=== PATIENT | female | born 1930 | race Caucasian/White ===

== ENCOUNTER 2016-11-12 07:09 | Inpatient (IN) | payer MEDICARE, OTHER, MEDICAID ==
[~2016-11-12] VITALS: Ht 157.5 cm; Wt 99.5 kg
[~2016-11-12 07:09] MED LIST: AC325T PO; ALPR.5T PO; ALPR1T PO; AMIT10TA6 PO; AMIT25TA9 PO; AMLO10TA82 PO; CALC-9 PO; CETI10TA20 PO; CHLR10C PO; CHOL100011 PO; CLOP75TA PO; DIPH1TAB25 PO; DIPH1TAB45 PO; DNPZ10T PO; DONE10TA48 PO; DULO60CA6 PO; FURO40TA4 PO; GABA600T2 PO; GUAI10SY4 PO; GUAI400T11 PO; HYDR-623 PO; KCL20TCR PO; LACT1CAP39 PO; LOVA20TA2 PO; LOVA40TA2 PO; LRZ1T PO; MAG-5 PO; MAG355OR17 PO; MAGN-47 PO; MECL25TA56 PO; MELA1TAB11 PO; METO-354 PO; METO5TAB2 PO; METO5TAB79 PO; MEVACOR; NITR-65 PO; OMEP-10 PO; ONDAN4ODT PO; OXYC-12 PO; PARO40TA47 PO; PNT40TEC PO; PREG200C PO; RLX60T PO; RNT150T PO; SCR1T1 PO; SIME80TA6 PO; SOLI10TA4 PO; TRM50T PO; ZLP10T PO
[2016-11-12 08:09] LABS: BASOPHILS % (AUTO) 0 % (0-10); EOSINOPHILS % (AUTO) 0 % (0-10); LYMPHOCYTES # (AUTO) 0.7 X 10^3 (1.0-4.0); LYMPHOCYTES % (AUTO) 7 % (12-44); MEAN CORPUSCULAR HEMOGLOBIN 28 PG (25-34); MEAN CORPUSCULAR HGB CONC 31 G/DL (32-36); MEAN CORPUSCULAR VOLUME 90 FL (80-99); MEAN PLATELET VOLUME 10.7 FL (7.4-10.4); MONOCYTES # (AUTO) 0.6 X 10^3 (0.0-1.0); MONOCYTES % (AUTO) 6 % (0-12); NEUTROPHILS # (AUTO) 8.5 X 10^3 (1.8-7.8); NEUTROPHILS % (AUTO) 87 % (42-75); PLATELET COUNT 153 10^3/uL (130-400); RED BLOOD COUNT 5.52 10^6/uL (4.35-5.85); RED CELL DISTRIBUTION WIDTH 15.1 % (10.0-14.5); WHITE BLOOD COUNT 9.9 10^3/uL (4.3-11.0)
[2016-11-12 08:30] LABS: ALANINE AMINOTRANSFERASE 16 U/L (0-55); ALBUMIN 3.4 G/DL (3.2-4.5); ANION GAP 14 MMOL/L (5-14); ASPARTATE AMINO TRANSFERASE 42 U/L (5-34); BILIRUBIN,TOTAL 0.8 MG/DL (0.1-1.0); BLOOD UREA NITROGEN 14 MG/DL (7-18); BUN/CREATININE RATIO 10; CALCIUM 8.9 MG/DL (8.5-10.1); CARBON DIOXIDE 28 MMOL/L (21-32); CHLORIDE 102 MMOL/L (98-107); CREATININE SERUM 1.44 MG/DL (0.60-1.30); GFR ESTIMATED 34; GLUCOSE 134 MG/DL (70-105); POTASSIUM 4.1 MMOL/L (3.6-5.0); SODIUM 144 MMOL/L (135-145); TOTAL PROTEIN 6.5 G/DL (6.4-8.2)
--- NOTE | 2016-11-12 08:38 | ED General ---
General Chief Complaint: Respiratory Problems Stated Complaint: AMS Nursing Triage Note: Pt was found in bed this morning with altered mental status and SA02 in the 70s according to assisted report. Pt mumbles but is not able to converse in normal conversation. No family members here yet. Pt on NR mask at 10 l and now SA02 100%. Pt is DNR. Nursing Sepsis Screen: No Definite Risk Source of Information: Patient, EMS Notes Reviewed Exam Limitations: No Limitations History of Present Illness Time Seen by Provider: 08:34 Initial Comments The patient is a very nearly 86-year-old white female who is a resident of [facility]. She exhibited a change in condition this morning with confusion and hypoxia. She is a documented no code patient. The facility was apparently unable to get in touch of Dr. Arguello her community physician and so they sent her here. She rouses to voice. She only mumbles. I was able to understand that she knew that she was at the hospital and that she was short of breath. She allowed she did not believe she had a fever and was not coughing up phlegm. Allergies and Home Medications Allergies Coded Allergies: latex (Unverified Allergy, Mild, 08/12/09) Cephalexin (Unverified Allergy, Unknown, 01/29/07) Penicillins (Unverified Allergy, Unknown, 01/29/07) Soap (Unverified Allergy, Unknown, 01/29/07) codeine (Unverified Allergy, Unknown, 01/29/07) povidone-iodine (Unverified Allergy, Unknown, 01/29/07) Home Medications Acetaminophen 325 Mg Tab, 650 MG PO Q6H PRN for PAIN, (Reported) TAKE 2 (325MG) TABLETS NEEDED FOR PAIN Amitriptyline Hcl 25 Mg Tablet, 25 MG PO HS, (Reported) Cetirizine HCl 10 Mg Tablet, 10 MG PO DAILY, (Reported) Cholecalciferol 1,000 Unit Capsule, 2,000 UNIT PO DAILY, (Reported) Clopidogrel Bisulfate 75 Mg Tablet, 75 MG PO DAILY, (Reported) Donepezil Hcl 10 Mg Tab.rapdis, 10 MG PO HS, (Reported) Guaifenesin 400 Mg Tablet, 400 MG PO Q4H PRN for INCREASED SPUTUM, (Reported) NEEDED FOR INCREASED SPUTUM Guaifenesin/Dextromethorphan 10 Ml Liqd, 10 ML PO Q6H PRN for COUGH, (Reported) NEEDED FOR COUGH Hydrocodone Bit/Acetaminophen 1 Tab Tablet, 1 TAB PO QID PRN for PAIN, (Reported ) 10-325MG NEEDED FOR PAIN Lactobacillus Rhamnosus 1 Cap Capsule, 1 CAP PO DAILY, (Reported) Lorazepam 1 Mg Tab, 1 MG PO BID, (Reported) Lovastatin 20 Mg Tablet, 20 MG PO HS, (Reported) Mag Hydrox/Al Hydrox/Simeth 360 Ml Oral.susp, 30 ML PO Q8H PRN for INDIGESTION, (Reported) NEEDED FOR INDIGESTION Magnesium Hydroxide 400 Mg/5 Ml Oral.susp, 30 ML PO DAILY PRN for CONSTIPATION, (Reported) NEEDED FOR CONSTIPATION Metoclopramide Hcl 5 Mg Tablet, 10 MG PO ACHS, (Reported) TAKE 2 (5MG) TABLETS Pregabalin 200 Mg Capsule, 200 MG PO TID, (Reported) Pyridoxine/Melatonin 1 Tab Tablet, 6 MG PO HS, (Reported) TAKES 2 (3GM) TABLETS Simethicone 80 Mg Tab.chew, 80 MG PO BID, (Reported) Constitutional: see HPI EENTM: no symptoms reported Respiratory: short of breath Past Zjdoxnt-Ucozac-Dsnngj Hx Patient Social History Alcohol Use: Denies Use Recreational Drug Use: No Smoking Status: Unknown if Ever Smoked Recent Foreign Travel: No Contact w/Someone Who Travel: No Recent Infectious Disease Expo: No Recent Hopitalizations: Yes Immunizations Up To Date Date of Pneumonia Vaccine: Apr 17, 2009 Respiratory Hx Respiratory Disorders: No Cardiovascular Hx Cardiac Disorders: No Neurological Hx Neurological Disorders: No Reproductive System Hx Reproductive Disorders: No Sexually Transmitted Disease: No Genitourinary Hx Genitourinary Disorders: Yes (INCONTINENCE) Gastrointestinal Hx Gastrointestinal Disorders: Yes (DIVERTICULITIS, IBS, ) Musculoskeletal Hx Musculoskeletal Disorders: Yes Endocrine Hx Endocrine Disorders: No HEENT HX ENT Disorders: Yes (difficulty swallowing pills) Psychosocial Hx Psychiatric Problems: Yes Blood Transfusions Hx Blood Disorders: No Physical Exam Vital Signs Vital Sign - Last 12Hours 11/12/16 07:09 Temp 97.3 Pulse 81 Resp 20 B/P (MAP) 111/60 Pulse Ox 100 O2 Delivery Non Rebreather Capillary Refill : Less Than 3 Seconds General Appearance: Other (eelderly appearing and somnolent) Eyes: Bilateral Eye Normal Inspection HEENT: Normal ENT Inspection Neck: Normal Inspection Respiratory: Other (breath sounds were shallow and distant) Cardiovascular: Regular Rate, Rhythm, No Edema, No Gallop, No JVD, No Murmur, Normal Peripheral Pulses Gastrointestinal: Other Extremity: Other (right AK amputation) Skin: Normal Color, Warm/Dry Lymphatic: No Adenopathy Progress/Results/Core Measures Results/Orders Lab Results Laboratory Tests Test 11/12/16 08:00 Range/Units White Blood Count 9.9 4.3-11.0 10^3/uL Red Blood Count 5.52 4.35-5.85 10^6/uL Hemoglobin 15.5 11.5-16.0 G/DL Hematocrit 50 35-52 % Mean Corpuscular Volume 90 80-99 FL Mean Corpuscular Hemoglobin 28 25-34 PG Mean Corpuscular Hemoglobin Concent 31 L 32-36 G/DL Red Cell Distribution Width 15.1 H 10.0-14.5 % Platelet Count 153 130-400 10^3/uL Mean Platelet Volume 10.7 H 7.4-10.4 FL Neutrophils (%) (Auto) 87 H 42-75 % Lymphocytes (%) (Auto) 7 L 12-44 % Monocytes (%) (Auto) 6 0-12 % Eosinophils (%) (Auto) 0 0-10 % Basophils (%) (Auto) 0 0-10 % Neutrophils # (Auto) 8.5 H 1.8-7.8 X 10^3 Lymphocytes # (Auto) 0.7 L 1.0-4.0 X 10^3 Monocytes # (Auto) 0.6 0.0-1.0 X 10^3 Eosinophils # (Auto) 0.0 0.0-0.3 10^3/uL Basophils # (Auto) 0.0 0.0-0.1 10^3/uL Neutrophils % (Manual) 88 % Lymphocytes % (Manual) 8 % Monocytes % (Manual) 4 % Blood Morphology Comment NORMAL Sodium Level 144 135-145 MMOL/L Potassium Level 4.1 3.6-5.0 MMOL/L Chloride Level 102 98-107 MMOL/L Carbon Dioxide Level 28 21-32 MMOL/L Anion Gap 14 5-14 MMOL/L Blood Urea Nitrogen 14 7-18 MG/DL Creatinine 1.44 H 0.60-1.30 MG/DL Estimat Glomerular Filtration Rate 34 BUN/Creatinine Ratio 10 Glucose Level 134 H 70-105 MG/DL Calcium Level 8.9 8.5-10.1 MG/DL Total Bilirubin 0.8 0.1-1.0 MG/DL Aspartate Amino Transf (AST/SGOT) 42 H 5-34 U/L Alanine Aminotransferase (ALT/SGPT) 16 0-55 U/L Alkaline Phosphatase 100 40-136 U/L Troponin I 2.16 *H <0.30 NG/ML Total Protein 6.5 6.4-8.2 G/DL Albumin 3.4 3.2-4.5 G/DL Valproic Acid (Depakene) Level < 2.0 L 50.0-100.0 UG/ML My Orders Orders - NIXON SCOTT MD Cbc With Automated Diff (11/12/16 07:29) Comprehensive Metabolic Panel (11/12/16 07:29) Troponin I (11/12/16 07:29) Valproic Acid (11/12/16 07:29) Chest 1 View, Ap/Pa Only (11/12/16 07:29) Ekg Tracing (11/12/16 07:29) Manual Differential (11/12/16 08:00) Vital Signs/I&O Vital Sign - Last 12Hours 11/12/16 07:09 Temp 97.3 Pulse 81 Resp 20 B/P (MAP) 111/60 Pulse Ox 100 O2 Delivery Non Rebreather Blood Pressure Mean: 77 Departure Impression Impression: Primary Impression: hypoxia Additional Impression: Decreased level of consciousness Disposition: ADMITTED INPATIENT Condition: Unchanged Decision to Admit Reason: Admit from ER (General) Decision to Admit/Date: November 12, 2016 Time/Decision to Admit Time: 10:26 Departure-Patient Inst. Referrals: PETRA ARGUELLO DO (PCP) Primary Care Physician NIXON SCOTT MD November 12, 2016 08:38
[2016-11-12 08:40] LABS: LYMPHOCYTES % (MANUAL) 8 %; NEUTROPHILS % (MANUAL) 88 %; VALPROIC ACID < 2.0 UG/ML (50.0-100.0)
[2016-11-12 09:15] LABS: TROPONIN I 2.16 NG/ML (<0.30)
--- NOTE | 2016-11-12 09:40 | Diagnostic Imaging Report ---
INDICATION: Shortness of air. COMPARISON: 08/29/2013. FINDINGS: Low lung volumes with asymmetric elevation of the right hemidiaphragm unchanged. There are ill-defined opacities in left mid and lower lung zones. Posterior lower lobes are poorly evaluated on portable radiography. No pleural effusion or pneumothorax. Stable borderline cardiomegaly. Atherosclerotic aorta. IMPRESSION: 1. Ill-defined left perihilar and basilar opacities could relate to pneumonia in the appropriate clinical setting; however, if this does not fit patient's presentation, then this may represent atelectasis due to low lung volumes. Dictated by: Dictated on workstation # [id number]
[2016-11-12 11:50] VITALS: BP 116/67
--- NOTE | 2016-11-12 12:56 | History & Physical-Hospitalist ---
HPI History of Present Illness: HPI/Chief Complaint 85yoCF who presents to the ED from her NH with CC of AMS and abnormal breathing. Patient unable to provide any history. Family at bedside was unaware of any recent events. I called [facility] and RN who cared for her this morning states she normally is alert and oriented x3 and fairly active despite AKA. She states pt was altered this morning with decreased mentation and shallow breathing. She denies any recent complaints from patient, any abnormal vitals on recent checks, or any new medicines or changes to medicine. She was unable to provide any other pertinent recent history. Source: family, RN/MD, [facility] records Exam Limitations: clinical condition Date Seen 11/12/16 Attending Physician Gita Reynaga DO PCP Brennan Arguello DO Referring Physician Date of Admission November 12, 2016 at 10:30 Home Medications & Allergies Home Medications Reviewed patient Home Medication Reconciliation Form Allergies Allergies Coded Allergies latex (Verified Allergy, Mild, 11/12/16) Penicillins (Verified Allergy, Unknown, 11/12/16) cephalexin (Verified Allergy, Unknown, 11/12/16) codeine (Verified Allergy, Unknown, 11/12/16) povidone-iodine (Verified Allergy, Unknown, 11/12/16) soap (Verified Allergy, Unknown, 11/12/16) Past Xlppnaa-Srugko-Zpuxub Hx Patient Social History Employed/Student: retired Alcohol Use: Denies Use Recreational Drug Use: No Smoking Status: Former Smoker Recent Foreign Travel: No Contact w/other who traveled: No Recent Hopitalizations: Yes Recent Infectious Disease Expo: No Immunizations Up To Date Date of Pneumonia Vaccine: Apr 17, 2009 Surgeries HX Surgeries: Yes Surgeries: Amputation (right aka), Hysterectomy Respiratory Hx Respiratory Disorders: No Cardiovascular Hx Cardiovascular Disorders: No Neurological Hx Neurological Disorders: Yes Neurological Disorders: Neuropathy Reproductive System Hx Reproductive Disorders: No Sexually Transmitted Disease: No Genitourinary Hx Genitourinary Disorders: Yes (INCONTINENCE) Gastrointestinal Hx Gastrointestinal Disorders: Yes (DIVERTICULITIS, IBS, ) Musculoskeletal Hx Musculoskeletal Disorders: Yes Musculoskeletal Disorders: Amputee Endocrine Hx Endocrine Disorders: No HEENT HX ENT Disorders: Yes (difficulty swallowing pills) Psychosocial Hx Psychiatric Problems: Yes Integumentary HX Skin/Integumentary Disorder: Yes (history of melanoma) Blood Transfusions Hx Blood Disorders: No Family Medical History Significant Family History: No Pertinent Family Hx Review of Systems ROS-Unable to Obtain: altered mentation Constitutional: see HPI Physical Exam Physical Exam Vital Signs Vital Sign - Last 12Hours 11/12/16 11/12/16 07:09 11:50 Temp 97.3 Pulse 81 Resp 20 B/P (MAP) 111/60 Pulse Ox 100 O2 Delivery Non Rebreather O2 Flow Rate 4.00 Capillary Refill : Less Than 3 Seconds General Appearance: No Apparent Distress, WD/WN HEENT: PERRL/EOMI Neck: Non Tender, Supple Respiratory: Chest Non Tender, Lungs Clear, Normal Breath Sounds Cardiovascular: Regular Rate, Rhythm, No Edema, No JVD Gastrointestinal: Soft, No Distended, Tenderness (mild diffuse) Extremity: No Pedal Edema, Other (s/p AKA) Neurologic/Psychiatric: Alert, No Motor/Sensory Deficits, Disoriented x3 Skin: Normal Color, Warm/Dry Results Results/Procedures Lab Laboratory Tests 11/12/16 08:00 Assessment/Plan Admission Diagnosis Hypoxia Assessment and Plan Hypoxia, new - possible pneumonia on CXR - Will start Levaquin to cover for possible pna - Continue home probiotics - Sputum cultures - MAT protocol - Titrate O2 to keeps sats >90% Elevated troponin - EKG shows no STEMI, monitor on Tele - ASA x1 - Will trend, likely due to hypoxia - Consult cardiology Altered mental Status,improving - Likely due to hypoxia, improved significantly from ER report by the time I was at bedside - Will check UA - Glucose normal - On chronic narcotics, will monitor closely given age Phantom limb pain - Continue Lyrica, Amitriptyline, MS contin - Hold Morphine for now Dispo: Admit to tele for further workup of hypoxia and AMS. MD AARON Nelson KATELYN M MD November 12, 2016 12:56
[2016-11-12] MEDS ORDERED: ENOXAPARIN 30 MG/0.3 ML (LOVENOX) SYR SC SCH (13:15)
[2016-11-12] MEDS ORDERED: ASPIRIN 325 MG (5 GR) TABLET PO NR (13:15)
[2016-11-12] MEDS ORDERED: LEVOFLOXACIN 750 MG TAB (LEVAQUIN) PO NR (13:30)
[2016-11-12] MEDS ORDERED: LOPE-134 PO (13:31)
[2016-11-12] MEDS ORDERED: DEXL60CA PO (13:31)
[2016-11-12] MEDS ORDERED: MORP30TA60 PO (13:31)
[2016-11-12] MEDS ORDERED: SUCR1ORA5 PO (13:31)
[2016-11-12] MEDS ORDERED: KETO5DRO OU (13:31)
[2016-11-12] MEDS ORDERED: VIT1TABL52 PO (13:31)
[2016-11-12] MEDS ORDERED: ONDN4T PO (13:31)
[2016-11-12] MEDS ORDERED: MELA3TAB PO (13:31)
[2016-11-12] MEDS ORDERED: MORP15TA PO (13:31)
[2016-11-12] MEDS ORDERED: DICL100G18 TD (13:31)
[2016-11-12] MEDS ORDERED: LOPERAMIDE 2 MG (IMODIUM) CAP PO PRN (13:45)
[2016-11-12] MEDS ORDERED: DICLOFENAC 1% GEL 100 GM (VOLTAREN) TUBE TOP PRN (13:45)
[2016-11-12] MEDS ORDERED: ACETAMINOPHEN 325 MG TABLET/CAPLET (TYLENOL) PO PRN (13:45)
[2016-11-12] MEDS ORDERED: LORazepam 1 MG (ATIVAN) TAB PO PRN (14:00)
[2016-11-12] MEDS ORDERED: ONDANSETRON 4 MG (ZOFRAN) ORAL DISSOLVE TAB PO PRN (14:45)
[2016-11-12] MEDS: LACTOBACILLUS Acidoph/Bulgar (LACTINEX/FLORANEX) TAB PO SCH (14:51)
[2016-11-12] MEDS: morphine ER 30 MG (MS CONTIN) TAB PO SCH (14:51)
[2016-11-12 15:07] LABS: KETONES,URINE NEGATIVE (NEGATIVE); LEUKOCYTE ESTERASE ,URINE 1+ (NEGATIVE); NITRITE,URINE NEGATIVE (NEGATIVE); PH,URINE 6 (5-9); PROTEIN,URINE 2+ (NEGATIVE); UROBILINOGEN,URINE 1 MG/DL (NORMAL)
[2016-11-12] MEDS ORDERED: CLOPIDOGREL 300 MG (PLAVIX) TABLET PO NR (15:15)
[2016-11-12] MEDS ORDERED: ENOXAPARIN 40 MG/0.4 ML (LOVENOX) SYR SC NR (15:32)
[2016-11-12 15:41] LABS: BILIRUBIN,URINE 1+ (NEGATIVE)
[2016-11-12] MEDS: SUCRALFATE 1 GM (CARAFATE) TAB PO SCH (15:49)
[2016-11-12] MEDS ORDERED: SUCRALFATE 1 GM (CARAFATE) TAB PO SCH (16:00)
[2016-11-12 16:03] VITALS: BP 118/69
[2016-11-12] MEDS ORDERED: KETOROLAC TROMETHAMINE OU SCH (17:00)
[2016-11-12 19:37] VITALS: BP 124/86
[2016-11-12 19:46] VITALS: BP 122/78
[2016-11-12] MEDS: morphine IMMEDIATE RELEASE 15 MG TABLET PO PRN (21:16)
[2016-11-12] MEDS: DONEPEZIL 10 MG (ARICEPT) TAB PO SCH (21:16)
[2016-11-12] MEDS: SIMETHICONE 80 MG (MYLICON) CHEW PO SCH (21:16)
[2016-11-12] MEDS: AMITRIPTYLINE 50 MG (ELAVIL) TAB PO SCH (21:16)
[2016-11-12] MEDS: PREGABALIN 100 MG (LYRICA) CAPSULE PO SCH (21:17)
[2016-11-12] MEDS: SIMvastatin 10 MG (ZOCOR) TAB PO SCH (21:17)
[2016-11-12] MEDS: MELATONIN 3 MG TABLET PO SCH (21:17)
[2016-11-13] VITALS: BP 129/79
[2016-11-13] MEDS: morphine ER 30 MG (MS CONTIN) TAB PO SCH ×3 (01:41→18:14)
[2016-11-13 04:00] VITALS: BP 137/84
[2016-11-13 05:13] LABS: BASOPHILS % (AUTO) 0 % (0-10); EOSINOPHILS # (AUTO) 0.1 10^3/uL (0.0-0.3); EOSINOPHILS % (AUTO) 1 % (0-10); LYMPHOCYTES # (AUTO) 1.8 X 10^3 (1.0-4.0); LYMPHOCYTES % (AUTO) 26 % (12-44); MEAN CORPUSCULAR HEMOGLOBIN 28 PG (25-34); MEAN CORPUSCULAR HGB CONC 31 G/DL (32-36); MEAN CORPUSCULAR VOLUME 91 FL (80-99); MEAN PLATELET VOLUME 10.9 FL (7.4-10.4); MONOCYTES # (AUTO) 0.6 X 10^3 (0.0-1.0); MONOCYTES % (AUTO) 8 % (0-12); NEUTROPHILS # (AUTO) 4.5 X 10^3 (1.8-7.8); NEUTROPHILS % (AUTO) 64 % (42-75); PLATELET COUNT 134 10^3/uL (130-400); RED BLOOD COUNT 5.01 10^6/uL (4.35-5.85); RED CELL DISTRIBUTION WIDTH 15.3 % (10.0-14.5); WHITE BLOOD COUNT 6.9 10^3/uL (4.3-11.0)
[2016-11-13 05:38] LABS: ALBUMIN 2.9 G/DL (3.2-4.5); BILIRUBIN,TOTAL 0.8 MG/DL (0.1-1.0); CALCIUM 8.6 MG/DL (8.5-10.1); CREATININE SERUM 2.25 MG/DL (0.60-1.30); TOTAL PROTEIN 5.6 G/DL (6.4-8.2)
[2016-11-13] MEDS: morphine IMMEDIATE RELEASE 15 MG TABLET PO PRN ×2 (05:40→21:18)
[2016-11-13] MEDS: PANTOPRAZOLE 40 MG (PROTONIX) TAB PO SCH (05:40)
[2016-11-13] MEDS: SUCRALFATE 1 GM (CARAFATE) TAB PO SCH ×3 (05:40→15:45)
[2016-11-13 08:00] VITALS: BP 109/59
[2016-11-13] MEDS: LACTOBACILLUS Acidoph/Bulgar (LACTINEX/FLORANEX) TAB PO SCH (08:49)
[2016-11-13] MEDS: VITAMIN D3 1,000 UNITS (CHOLECALCIFEROL) TABLET PO SCH (08:49)
[2016-11-13] MEDS: SIMETHICONE 80 MG (MYLICON) CHEW PO SCH ×2 (08:49→21:17)
[2016-11-13] MEDS: PREGABALIN 100 MG (LYRICA) CAPSULE PO SCH ×3 (08:50→21:18)
[2016-11-13] MEDS: CLOPIDOGREL 75 MG (PLAVIX) TABLET PO SCH (08:54)
[2016-11-13 12:00] VITALS: BP 143/76
--- NOTE | 2016-11-13 12:33 | Consultation-Cardiology ---
HPI-Cardiology Cardiology Consultation: Date of Consultation 11/13/16 Date of Admission Attending Physician Gita Reynaga DO Admitting Physician Brennan Arguello DO Consulting Physician Carlin DUTTA MD HPI: Chief Complaint: Hypoxia This is a 85-year-old lady whose CODE STATUS is DO NOT RESUSCITATE. [facility] and was transferred to the hospital because she was confused, had difficulty breathing, low oxygen saturations. 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 The patient denies any significant coronary or vascular history. The patient also denies any significant valvular heart disease or heart rhythm disorder. Patient had coronary angiography in 2007 which did not show any significant coronary disease. On my interview the patient denies any chest pain, shortness of breath , syncope, near-syncope, palpitations. She does complain of fatigue. The history was taken in presence of her 2 daughters who are also the power of pipe coverer helper. Review of Systems-Cardiology Review of Systems Constitutional: No As described under HPI, No no symptoms reported, No chills, No fever, No lightheadedness, No malaise, tiredness, No weight loss, No weight gain, No other Eyes: No As described under HPI, No no symptoms reported, No blindness, No blurred vision, No contact lenses, No drainage, No decreased acuity, No foreign body sensation, No glasses, No inflammation, No pain, No photophobia, No previous injury, No shadows, No tunnel vision, No other, No vision change Ears/Nose/Throat: No As described under HPI, No no symptoms reported, No chronic hearing loss, No epistaxis, No ear discharge, No ear pain, No loose teeth, No mouth pain, No mouth swelling, No nasal drainage, No nose pain, No recent hearing loss, No throat pain, No throat swelling, No ulcerations, No other Respiratory: shortness of breath Cardiovascular: No no symptoms reported, As described under HPI, No chest pain , No edema, No irregular heart rate, No lightheadedness, No palpitations, No syncope, No other Gastrointestinal: No no symptoms reported, No As described under HPI, No abdomen distended, No abdominal pain, No blood streaked bowels, No constipation , No diarrhea, No difficulty swallowing, No nausea, No poor appetite, No poor fluid intake, No rectal bleeding, No vomiting, No other, No nausea/vomiting/ diarrhea, No stool coloration changes Genitourinary: No no symptoms reported, No As described under HPI, No burning, No dysuria, No discharge, No frequency, No flank pain, No hematuria, No incontinence, No pain, No urgency, No other, No urine frequency changes, No urine coloration changes Musculoskeletal: No no symptoms reported, No As describe under HPI, No back pain, No gout, No joint pain, No joint swelling, No muscle pain, No muscle stiffness, No neck pain, No other Skin: No no symptoms reported, No As described under HPI, No change in color, No change in hair/nails, No dryness, No lesions, No lumps, No rash, No other, No skin related problems, No ulcerations, No rash on exposed areas, No ulcerations on exposed areas Psychiatric/Neurological: No As described under HPI, No anxiety, No depression , No emotional problems, No focal weakness, No headache, No no symptoms reported , No numbness, No other, No pre-existing deficit, No seizure, No syncope, No tingling, No tremors, No weakness [id number] Hx Patient Social History Employed/Student: retired Alcohol Use: Denies Use Recreational Drug Use: No Smoking Status: Former Smoker Type Used: Cigarettes Recent Foreign Travel: No Recent Infectious Disease Expo: No Hospitalization with Isolation: Unknown Physical Abuse Screen: No Sexual Abuse: No Immunizations Up To Date Date of Pneumonia Vaccine: Apr 17, 2009 Past Medical History PMH As described under Assessment. Family Medical History Family History: Completed stroke 19 MOTHER Diabetes mellitus 19 MOTHER Myocardial infarction 19 MOTHER Allergies and Home Medications Allergies Coded Allergies: latex (Verified Allergy, Mild, 11/12/16) Penicillins (Verified Allergy, Unknown, 11/12/16) cephalexin (Verified Allergy, Unknown, 11/12/16) codeine (Verified Allergy, Unknown, 11/12/16) povidone-iodine (Verified Allergy, Unknown, 11/12/16) soap (Verified Allergy, Unknown, 11/12/16) Home Medications Acetaminophen 325 Mg Tab, 650 MG PO Q6H PRN for PAIN, (Reported) TAKE 2 (325MG) TABLETS NEEDED FOR PAIN Amitriptyline Hcl 25 Mg Tablet, 50 MG PO HS, (Reported) Cholecalciferol 1,000 Unit Capsule, 2 TAB PO DAILY, (Reported) Clopidogrel Bisulfate 75 Mg Tablet, 75 MG PO DAILY, (Reported) Dexlansoprazole 60 Mg Nadeem.bp, 60 MG PO DAILY, (Reported) Diclofenac Sodium 100 Gm Gel..gram., 4 GM TD Q4H PRN for PAIN-MILD, (Reported) Donepezil Hcl 10 Mg Tab.rapdis, 10 MG PO HS, (Reported) Ketorolac Tromethamine 5 Ml Drops, 1 DROP OU QID, (Reported) Lactobacillus Rhamnosus 1 Cap Capsule, 1 CAP PO DAILY, (Reported) Loperamide HCl 2 Mg Tablet, 2 MG PO Q6H PRN for DIARRHEA, (Reported) Lorazepam 1 Mg Tab, 1 MG PO BID, (Reported) Lovastatin 20 Mg Tablet, 20 MG PO HS, (Reported) Melatonin 3 Mg Tablet, 2 TAB PO HS, (Reported) Morphine Sulfate 30 Mg Tablet.er, 30 MG PO Q12H, (Reported) Morphine Sulfate 15 Mg Tablet, 15 MG PO Q6H PRN for PAIN-MODERATE, (Reported) Ondansetron HCl 4 Mg Tab, 4 MG PO Q6H PRN for NAUSEA/VOMITING-1ST LINE, ( Reported) Pregabalin 200 Mg Capsule, 200 MG PO TID, (Reported) Simethicone 80 Mg Tab.chew, 80 MG PO BID, (Reported) Sucralfate 1 Gm/10 Ml Oral.susp, 10 ML PO TID, (Reported) Vit B Cmplx 3/FA/Vit C/Biotin 1 Each Tablet, 1 EACH PO DAILY, (Reported) Physical Exam-Cardiology Physical Exam Vital Signs/I&O Vital Sign - Last 12Hours 11/13/16 11/13/16 11/13/16 11/13/16 01:00 04:00 08:00 08:49 Temp 98.0 96.4 Pulse 65 82 58 Resp 20 18 B/P (MAP) 137/84 109/59 Pulse Ox 97 96 O2 Flow Rate 4.00 4.00 4.00 Intake and Output 11/13/16 00:00 Intake Total 1025 ml Output Total 100 ml Balance 925 ml Capillary Refill : Less Than 3 Seconds Constitutional: No appears stated age, No AAO x 3, No apparent distress, No PERRL, No well-developed, No well-nourished, No other HEENT: No PERRL, No normal ENT inspection, No TMs normal, No pharynx normal, No scleral icterus (R), No scleral icterus (L), No pale conjunctivae (R), No pale conjunctivae (L), No photophobia, No TM abnormal (R), No TM abnormal (L), No pharyngeal erythema, No tonsillar exudate, No other, No discharge, No EOMI, No hearing is well preserved, No hard of hearing, No oral hygience is good, No ulceration, No xanthelasmas are seen Neck: No non-tender, No full range of motion, No supple, No normal inspection, No carotid bruit, No limited range of motion, No lymphadenopathy (R), No lymphadenopathy (L), No tender lateral, No tender midline, No thyromegaly, No other, No carotid pulses are 2 + bilaterally, No with good upstrokes Respiratory: No accessory muscle use, No respiratory distress, No chest tender , No chest expansion is symmetric, No chest is bilaterally symmetric, No lungs clear to percussion, No lungs clear to auscultation, No crackles, No rhonchi, No rales, No stridor, No wheezing, No pleural rub, No other Cardiovascular: regular rate-rhythm, No irregularly irregular, No extra beats, No parasternal heave is noted, No JVD, No edema, No bradycardia, No tachycardia , No point of maximal impulse, No cardiac thrills are palpable, S1 and S2, No gallop/S3, No gallop/S4, No diastolic murmur, No systolic murmur, No friction rub, No click, No other Gastrointestinal: No tender, No soft, No round, No distended, No pulsatile mass , No organomegaly, No guarding, No rebound, No tenderness, No hernia, No mass, No audible bowel sounds, No abnormal bowel sounds, No abdominal bruits, No spleenomegaly, No other Rectal: deferred Extremities: No normal range of motion, No non-tender, No normal inspection, No pedal edema, No calf tenderness, No normal capillary refill, No pelvis stable , No calf tenderness, No inflammation, No pedal edema, No slow capillary refill , No swelling, other (Right AKA), No abrasion, No clubbing, No cyanosis, No ecchymosis, No laceration, No no lower extremity edema bilateral, No significant edema, No tenderness, No wound Neurologic/Psychiatric: No power transmission engineer II-XII nml as tested, No no motor/sensory deficits, No alert, No normal mood/affect, No oriented x 3, No abnormal cerebellar tests, No abnormal power transmission engineer II-XII, No abnormal gait, No aphasia, No EOM palsy, No facial droop, No motor weakness, No sensory deficit, No depressed affect, No disoriented x 3, No other, No grossly intact, No power is 5/5 both on sides Skin: No normal color, No warm/dry, No cyanosis, No cool, No diaphoresis, No damp, No ecchymosis, No jaundice, No mottled, No pallor, No rash, No tattoos/ piercings, No ulcerations, No rash on exposed areas, No ulcerations on exposed areas, No other Data Review Labs Laboratory Tests 11/12/16 14:21: Troponin I 18.53*H, B-Type Natriuretic Peptide 405.5H 11/12/16 14:48: Urine Color YELLOW, Urine Clarity SLIGHTLY CLOUDY, Urine pH 6, Urine Specific [place] 1.020, Urine Protein 2+H, Urine Glucose (UA) NEGATIVE, Urine Ketones NEGATIVE, Urine Nitrite NEGATIVE, Urine Bilirubin 1+H, Urine Urobilinogen 1, Urine Leukocyte Esterase 1+H, Urine RBC (Auto) 2+H, Urine RBC 10-25H, Urine WBC 10-25H, Urine Squamous Epithelial Cells 10-25H, Urine Crystals NONE, Urine Bacteria FEWH, Urine Casts PRESENT, Urine Granular Casts 10-25H, Urine Mucus MODERATEH, Urine Culture Indicated YES 11/13/16 05:07: White Blood Count 6.9, Red Blood Count 5.01, Hemoglobin 13.9, Hematocrit 46, Mean Corpuscular Volume 91, Mean Corpuscular Hemoglobin 28, Mean Corpuscular Hemoglobin Concent 31L, Red Cell Distribution Width 15.3H, Platelet Count 134, Mean Platelet Volume 10.9H, Neutrophils (%) (Auto) 64, Lymphocytes (%) (Auto) 26 , Monocytes (%) (Auto) 8, Eosinophils (%) (Auto) 1, Basophils (%) (Auto) 0, Neutrophils # (Auto) 4.5, Lymphocytes # (Auto) 1.8, Monocytes # (Auto) 0.6, Eosinophils # (Auto) 0.1, Basophils # (Auto) 0.0, Sodium Level 143, Potassium Level 4.0, Chloride Level 103, Carbon Dioxide Level 31, Anion Gap 9, Blood Urea Nitrogen 22H, Creatinine 2.25H, Estimat Glomerular Filtration Rate 21, BUN/ Creatinine Ratio 10, Glucose Level 108H, Calcium Level 8.6, Total Bilirubin 0.8 , Aspartate Amino Transf (AST/SGOT) 76H, Alanine Aminotransferase (ALT/SGPT) 20 , Alkaline Phosphatase 83, Total Protein 5.6L, Albumin 2.9L Microbiology 11/12/16 Urine Culture - Preliminary, Resulted Strep Or Related Genus A/P-Cardiology Assessment/Admission Diagnosis Non-ST elevation [place], Hypoxia, Acute kidney injury Plan Patient has significantly elevated troponin. Working diagnosis is non-ST elevation [place] as cause of her symptoms yesterday. Previous coronary angiography in 2007 was negative for any significant coronary artery disease. She was started on aspirin, Plavix and enoxaparin yesterday. LIZ inhibitor is currently contraindicated due to acute kidney injury. We'll start low-dose metoprolol and statin. I discussed at length with the patient and her 2 daughters and recommended coronary angiography all risks and complication were explained in detail including vascular damage, bleeding, stroke, IL and even . There is also a significant risk of worsening renal function and even going on dialysis. Coronary angiography is not emergent. At this point in time the patient is not very keen; however she will discuss with her 2 daughters and will let us know. Hypoxia: Likely due to non-ST elevation [place]. BNP is elevated. Contribution from acute diastolic heart failure. Significantly improved symptoms with oxygen. Acute kidney injury: Patient has acute on chronic kidney disease. Continue IV fluids and hydration. If we do undergo coronary angiography the risk of contrast-induced nephropathy is very high. Thank you for your consultation. Please call me if you have any questions. Javier Dutta MD, FACP, FACC, FSCAI, FHRS, CCDS Interventional Cardiology Cardiac Electrophysiology Vascular Medicine and Endovascular Interventions Clinical Quality Measures DVT/VTE Risk/Contraindication: Risk Factor Score Per Nursin RFS Level Per Nursing on Admit: 4+=Very High Carlin DUTTA MD November 13, 2016 12:33 pm
--- NOTE | 2016-11-13 12:50 | Progress Note-Hospitalist ---
Subjective HPI/CC On Admission 85yoCF who presents to the ED from her NH with CC of AMS and abnormal breathing. Patient unable to provide any history. Family at bedside was unaware of any recent events. I called [facility] and RN who cared for her this morning states she normally is alert and oriented x3 and fairly active despite AKA. She states pt was altered this morning with decreased mentation and shallow breathing. NH RN denies any recent complaints from patient, any abnormal vitals on recent checks, or any new medicines or changes to medicine. Date Seen 11/13/16 Subjective/Events-last exam Pt states she feels worse than yesterday but does not remember yesterday. She feels weak and has pain when she lifts her arms. She feels like her hands are tight. Daughters at bedside report significant improvement from their point of view from yesterday. Objective Exam Vital Signs Vital Sign - Last 12Hours 11/12/16 07:09 Temp 97.3 Pulse 81 Resp 20 B/P (MAP) 111/60 Pulse Ox 100 O2 Delivery Non Rebreather Capillary Refill : Less Than 3 Seconds General Appearance: No Apparent Distress, WD/WN Respiratory: Chest Non Tender, No Accessory Muscle Use, Wheezing Cardiovascular: Regular Rate, Rhythm, Normal Peripheral Pulses Gastrointestinal: Normal Bowel Sounds, Non Tender, Soft Extremity: No Calf Tenderness, Pedal Edema Neurologic/Psychiatric: Alert, Oriented x3, Normal Mood/Affect, Motor Weakness (4/5 bilateral upper extremities) Results/Procedures Lab Laboratory Tests 11/13/16 05:07 Assessment/Plan Assessment and Plan Assess & Plan/Chief Complaint NSTEMI - Consulted cardiology, appreciate recs - Continue ASA, statin, plavix, metoprolol - Pt considering cardiac cath at this time, will await renal function improvement before proceeding - Echo ordered, awaiting results JESSIE - Large increase today form yesterday - Supportive measures with IVF - Renally dose meds and avoid LIZ until improved Hypoxia - Likely due to NSTEMI - Will complete Levaquin x 5days to cover for possible pna - Continue home probiotics - Sputum cultures pending - MAT protocol, albuterol prn - Titrate O2 to keeps sats >90% Weakness - Likely due to NSTEMI - OT consulted Phantom limb pain - Continue Lyrica, Amitriptyline, MS contin - Resumed morphine Dispo: Continue admission for management of NSTEMI. MD AARON Nelson KATELYN M MD November 13, 2016 12:50
[2016-11-13] MEDS ORDERED: RT-ALBUTEROL SULF 2.5 MG/3 ML PRE-MIX VIAL IH PRN (13:15)
[2016-11-13] MEDS: NS IV 1000 ML 1,000 ML IV SCH (13:29)
[2016-11-13] MEDS ORDERED: ENOXAPARIN 80 MG/0.8 ML (LOVENOX) SYR SC SCH (15:00)
[2016-11-13] MEDS: ENOXAPARIN 100 MG/1 ML (LOVENOX) SYR SC SCH (15:45)
[2016-11-13 15:59] VITALS: BP 138/79
[2016-11-13 19:19] VITALS: BP 139/62
[2016-11-13] MEDS: SIMvastatin 10 MG (ZOCOR) TAB PO SCH (21:18)
[2016-11-13] MEDS: meTOprolol TARTRATE 25 MG (LOPRESSOR) TABLET PO SCH (21:18)
[2016-11-13] MEDS: MELATONIN 3 MG TABLET PO SCH (21:18)
[2016-11-13] MEDS: DONEPEZIL 10 MG (ARICEPT) TAB PO SCH (21:18)
[2016-11-13] MEDS: AMITRIPTYLINE 50 MG (ELAVIL) TAB PO SCH (21:18)
[2016-11-14] VITALS (7 sets, daily range): BP systolic 116–151; BP diastolic 56–65
[2016-11-14] MEDS: NS IV 1000 ML 1,000 ML IV SCH ×3 (00:13→16:58)
[2016-11-14 04:54] LABS: BASOPHILS % (AUTO) 0 % (0-10); EOSINOPHILS # (AUTO) 0.1 10^3/uL (0.0-0.3); EOSINOPHILS % (AUTO) 1 % (0-10); LYMPHOCYTES # (AUTO) 1.4 X 10^3 (1.0-4.0); LYMPHOCYTES % (AUTO) 19 % (12-44); MEAN CORPUSCULAR HEMOGLOBIN 28 PG (25-34); MEAN CORPUSCULAR HGB CONC 31 G/DL (32-36); MEAN CORPUSCULAR VOLUME 91 FL (80-99); MEAN PLATELET VOLUME 10.7 FL (7.4-10.4); MONOCYTES # (AUTO) 0.6 X 10^3 (0.0-1.0); MONOCYTES % (AUTO) 8 % (0-12); NEUTROPHILS # (AUTO) 5.4 X 10^3 (1.8-7.8); NEUTROPHILS % (AUTO) 72 % (42-75); PLATELET COUNT 131 10^3/uL (130-400); WHITE BLOOD COUNT 7.5 10^3/uL (4.3-11.0)
[2016-11-14 05:13] LABS: BILIRUBIN,TOTAL 0.6 MG/DL (0.1-1.0); CALCIUM 8.6 MG/DL (8.5-10.1); CREATININE SERUM 1.7 MG/DL (0.60-1.30); POTASSIUM 4.2 MMOL/L (3.6-5.0); TOTAL PROTEIN 5.8 G/DL (6.4-8.2)
[2016-11-14] MEDS: PANTOPRAZOLE 40 MG (PROTONIX) TAB PO SCH (05:25)
[2016-11-14] MEDS: morphine ER 30 MG (MS CONTIN) TAB PO SCH ×2 (05:25→16:58)
[2016-11-14] MEDS: SUCRALFATE 1 GM (CARAFATE) TAB PO SCH ×3 (05:25→15:36)
--- NOTE | 2016-11-14 07:00 | ECHOCARDIOGRAPHY REPORT ---
DATE OF SERVICE: 11/12/2016 TWO DIMENSIONAL ECHOCARDIOGRAM DIAGNOSES: Hypoxia, non-ST elevation myocardial infarction. PRIMARY PHYSICIAN: Dr. Arguello. ORDERING PHYSICIAN: Dr. Dutta ATTENDING PHYSICIAN: Cody Herbert MD FINDINGS: 1. Sinus rhythm. 2. Left atrial dimensions are enlarged. Left atrial diameter is 4.5 cm. 3. Aortic root dimension is normal. 4. Left ventricular systolic function is hyperdynamic. LV ejection fraction is 75%. Mild concentric LVH is present with diastolic interventricular septal diameter of 1.5 cm. 5. There are no significant wall motion abnormalities. 6. Right heart size and function is normal. 7. There is no evidence of pericardial effusion. 8. Moderate diastolic dysfunction is present. 9. IVC is dilated at 2 cm, which may suggest increased right atrial pressure. VALVULAR STRUCTURE OF THE HEART: Mild tricuspid regurgitation with RVSP of 30 mmHg. Trivial mitral regurgitation. Aortic thickening is noted with no significant stenosis or regurgitation. Pulmonic valve was not well visualized. CONCLUSION: 1. LV and RV size and function is normal. 2. LVEF is hyperdynamic with an EF of 75%. 3. There is concentric LVH and left atrial enlargement. 4. PA pressure is mildly elevated. 5. Moderate diastolic dysfunction. 6. No significant valvular heart disease. Job ID: [id number] DocumentID: [id number] Dictated Date: 11/13/2016 13:47:55 Creative Engagement Director Date: 11/13/2016 15:14:48 Dictated By: ARNAUD DUTTA MD
[2016-11-14] MEDS: LACTOBACILLUS Acidoph/Bulgar (LACTINEX/FLORANEX) TAB PO SCH (08:33)
[2016-11-14] MEDS: PREGABALIN 100 MG (LYRICA) CAPSULE PO SCH ×3 (08:33→21:00)
[2016-11-14] MEDS: ASPIRIN 81 MG CHEW (CHILDREN'S ASA) PO SCH (08:33)
[2016-11-14] MEDS: CLOPIDOGREL 75 MG (PLAVIX) TABLET PO SCH (08:33)
[2016-11-14] MEDS: VITAMIN D3 1,000 UNITS (CHOLECALCIFEROL) TABLET PO SCH (08:33)
[2016-11-14] MEDS: SIMETHICONE 80 MG (MYLICON) CHEW PO SCH ×2 (08:33→20:59)
[2016-11-14] MEDS: meTOprolol TARTRATE 25 MG (LOPRESSOR) TABLET PO SCH ×2 (08:34→21:00)
--- NOTE | 2016-11-14 10:13 | Progress Note-Hospitalist ---
Progress Note HPI/CC on Admission 85yoCF who presents to the ED from her NH with CC of AMS and abnormal breathing. Patient unable to provide any history. Family at bedside was unaware of any recent events. I called shelter and RN who cared for her this morning states she normally is alert and oriented x3 and fairly active despite AKA. She states pt was altered this morning with decreased mentation and shallow breathing. NH RN denies any recent complaints from patient, any abnormal vitals on recent checks, or any new medicines or changes to medicine. Progress Notes/Assess & Plan Date Seen 11/14/16 Diagonsis/Assessment & Plan Patient actually declining slowly overall having end-of-life status changes. Elevated troponin and end-of-life status precludes any aggressive treatment No family at the bedside Angry at times and she denies pain The jerking movements are helped with Ativan Reviewed home medication No fever, vital signs stable, chronically ill, flat affect, somewhat demanding Regular rate and rhythm, diminished breath sounds in the bases No edema Laboratory Tests 11/14/16 04:41 Assessment: NSTEMI - Consulted cardiology, appreciate recs - Continue ASA, statin, plavix, metoprolol - Pt considering cardiac cath at this time, will await renal function improvement before proceeding - Echo ordered, awaiting results JESSIE - Improved creatinine from yesterday at 1.7 currently - Supportive measures with IVF - Renally dose meds and avoid LIZ until improved Hypoxia - Likely due to NSTEMI - Will complete Levaquin x 5days to cover for possible pna - Continue home probiotics - Sputum cultures pending - MAT protocol, albuterol prn - Titrate O2 to keeps sats >90% Weakness - Likely due to NSTEMI - OT consulted Phantom limb pain - Continue Lyrica, Amitriptyline, MS contin - Resumed morphine UTI: Sprep viridans on abx Dispo: Continue admission for management of NSTEMI. Palliative care consultation since end-of-life status Maintain DO NOT RESUSCITATE Poor prognosis overall SONNY SALTER DO November 14, 2016 10:13
[2016-11-14] MEDS ORDERED: LEVOFLOXACIN 750 MG TAB (LEVAQUIN) PO SCH (11:00)
--- NOTE | 2016-11-14 13:45 | Cardiology Progress Note ---
Cardiology SOAP Progress Note Subjective: mild discomfort today Objective: I&O/Vital Signs Vital Sign - Last 12Hours 11/14/16 11/14/16 11/14/16 11/14/16 04:00 07:00 07:02 08:00 Temp 98.1 98.2 Pulse 54 54 54 Resp 20 20 B/P (MAP) 116/56 117/57 Pulse Ox 98 97 O2 Flow Rate 4.00 4.00 4.00 11/14/16 11/14/16 11/14/16 11/14/16 08:32 09:12 09:33 13:00 Pulse 67 59 Pulse Ox 97 95 O2 Flow Rate 4.00 4.00 4.00 Intake and Output 11/14/16 00:00 Intake Total 1060 ml Output Total 250 ml Balance 810 ml Weight (Pounds): 219 Weight (Ounces): 5.0 Weight (Calculated Kilograms): 99.541193 Constitutional: No appears stated age, No AAO x 3, No apparent distress, No PERRL, No well-developed, No well-nourished, No other Respiratory: No accessory muscle use, No respiratory distress, No chest tender , No chest expansion is symmetric, No chest is bilaterally symmetric, No lungs clear to percussion, No lungs clear to auscultation, No crackles, No rhonchi, No rales, No stridor, No wheezing, No pleural rub, No other Cardiovascular: regular rate-rhythm, No irregularly irregular, No extra beats, No parasternal heave is noted, No JVD, No edema, No bradycardia, No tachycardia , No point of maximal impulse, No cardiac thrills are palpable, S1 and S2, No gallop/S3, No gallop/S4, No diastolic murmur, No systolic murmur, No friction rub, No click, No other Gastrointestional: No tender, No soft, No round, No distended, No pulsatile mass, No organomegaly, No guarding, No rebound, No tenderness, No hernia, No mass, No audible bowel sounds, No abnormal bowel sounds, No abdominal bruits, No spleenomegaly, No other Extremities: No normal range of motion, No non-tender, No normal inspection, No pedal edema, No calf tenderness, No normal capillary refill, No pelvis stable , No calf tenderness, No inflammation, No pedal edema, No slow capillary refill , No swelling, other (Right AKA), No abrasion, No clubbing, No cyanosis, No ecchymosis, No laceration, No no lower extremity edema bilateral, No significant edema, No tenderness, No wound Neurologic/Psychiatric: No locker room manager II-XII nml as tested, No no motor/sensory deficits, No alert, No normal mood/affect, No oriented x 3, No abnormal cerebellar tests, No abnormal locker room manager II-XII, No abnormal gait, No aphasia, No EOM palsy, No facial droop, No motor weakness, No sensory deficit, No depressed affect, No disoriented x 3, No other, No grossly intact, No power is 5/5 both on sides Skin: No normal color, No warm/dry, No cyanosis, No cool, No diaphoresis, No damp, No ecchymosis, No jaundice, No mottled, No pallor, No rash, No tattoos/ piercings, No ulcerations, No rash on exposed areas, No ulcerations on exposed areas, No other Results/Procedures: Labs Laboratory Tests 11/14/16 04:41: White Blood Count 7.5, Red Blood Count 5.00, Hemoglobin 13.9, Hematocrit 45, Mean Corpuscular Volume 91, Mean Corpuscular Hemoglobin 28, Mean Corpuscular Hemoglobin Concent 31L, Red Cell Distribution Width 15.0H, Platelet Count 131, Mean Platelet Volume 10.7H, Neutrophils (%) (Auto) 72, Lymphocytes (%) (Auto) 19 , Monocytes (%) (Auto) 8, Eosinophils (%) (Auto) 1, Basophils (%) (Auto) 0, Neutrophils # (Auto) 5.4, Lymphocytes # (Auto) 1.4, Monocytes # (Auto) 0.6, Eosinophils # (Auto) 0.1, Basophils # (Auto) 0.0, Sodium Level 143, Potassium Level 4.2, Chloride Level 104, Carbon Dioxide Level 31, Anion Gap 8, Blood Urea Nitrogen 24H, Creatinine 1.70H, Estimat Glomerular Filtration Rate 28, BUN/ Creatinine Ratio 14, Glucose Level 112H, Calcium Level 8.6, Total Bilirubin 0.6 , Aspartate Amino Transf (AST/SGOT) 38H, Alanine Aminotransferase (ALT/SGPT) 17 , Alkaline Phosphatase 82, Total Protein 5.8L, Albumin 3.0L Microbiology 11/12/16 Urine Culture - Final, Complete Streptococcus Viridans A/P: Assessment/Dx: Non-ST elevation [place], Hypoxia, Acute kidney injury Plan: Patient has significantly elevated troponin. Working diagnosis is non-ST elevation [place] as cause of her symptoms yesterday. Previous coronary angiography in 2007 was negative for any significant coronary artery disease. aspirin, Plavix, Lovenox, statin, beta ceci. LIZ inhibitor not given due to acute kidney injury. Echocardiogram shows hyperdynamic LVEF with no wall motion abnormalities. This suggest underfilling. Creatinine is improved today. The family still has not made a decision about coronary angiography. Hypoxia: Likely due to non-ST elevation [place]. BNP is elevated. Contribution from acute diastolic heart failure. Significantly improved symptoms with oxygen. Acute kidney injury: Patient has acute on chronic kidney disease. Continue IV fluids and hydration. improved kidney function today. If we do undergo coronary angiography the risk of contrast-induced nephropathy is very high. Thank you for your consultation. Please call me if you have any questions. Javier Dutta MD, FACP, FACC, FSCAI, FHRS, CCDS Interventional Cardiology Cardiac Electrophysiology Vascular Medicine and Endovascular Interventions Carlin DUTTA MD November 14, 2016 1:45 pm
--- NOTE | 2016-11-14 14:27 | Occupational Therapy Eval ---
OT Evaluation-General/PLF Medical Diagnosis Admission Date November 12, 2016 at 13:03 Medical Diagnosis: Hypoxia and confusion Onset Date: November 12, 2016 Therapy Diagnosis Therapy Diagnosis: Weakness, decreased ADL skills Height/Weight Height (Feet): 5 Height (Inches): 2.00 Weight (Pounds): 219 Weight (Ounces): 5.0 Precautions Precautions/Isolations: Fall Prevention, Standard Precautions, Pressure Ulcer Safety Interventions: Bed Exit Alarm, Reorient-Attempt, Reorient-PRN Referral Physician: Dr. Bowser Referral Reason: Activity Tolerance, Self Care, Evaluation/Treatment Medical History Additional Medical History Right AKA, Diverticulosis Current History Pt. has lived at [facility] for approximately 8 years per her report. Reviewed History: Yes Social History Home: [facility] Current Living Status: Entry Into Home: Level Entry ADL-Prior Level of Function ADL PLOF Comments Pt. states that she is in a wheelchair most of the time. She used to take herself to the dining room, but more recently she has been eating in her room. Pt. states that she gets help to shower and bathe at residential. Pt. is in and out of confusion throughout treatment this date. Unaware of cognitive status at residential. DME/Equipment Comments Pt. has a wheelchair and is showered via a shower chair. Is unable to articulate how she gets from surface to surface. Drive Self: No OT Current Status Subjective Pt. reports pain, but does not state location or number. Appearance Pt. in bed. Agrees to work with OT. However, once OT begins to get her up to side of bed, pt. gets agitated. Very confused and yells to lay down. OT complies, and then pt. is upset that she is laying down, and that OT "has me right where you want me." Pt. is asked again if she would like to get up. Pt. agrees. OT explains to pt. the purpose of treatment. Mental Status/Objective Patient Orientation: Confused, Unable to Assess Attachments: Oxygen Current Upper Extremity ROM Pt. is able to raise bilateral shoulders to approximately 90 degrees. Upper Extremity Coordination impaired. Pt. is noted to have tremors and hand weakness. She has a difficult time holding utensils to eat, and holding her cup. Upper Extremity Strength Pt. unable to tolerate full manual muscle testing. Agitated that OT is asking her to hold positions. Edema: Pt. does have edema in bilateral hands. ADL-Treatment Functional [place] Measure 0=Not Assessed/NA 4=Minimal Assistance 1=Total Assistance 5=Supervision or Setup 2=Maximal Assistance 6=Modified [place] 3=Moderate Assistance 7=Complete IndependenceIRFPAI Quality Coding Scale 6 Independent with activity with or without an assistive device 5 Patient requires set up or clean up by helper. Patient completes activity by themselves 4 Supervision or touching assist (CGA). Saffell provide cues , steadying assist 3 The helper provides less than half the effort to complete the activity 2 The helper provides more than half the effort to complete the activity 1 Dependent. The helper does all the effort to complete an activity 7 Patient refused to complete or attempt activity 9 The patient did not perform the activity before the current illness or injury 88 Not attempted due to Medical conditions or safety concerns Eating (FIM): 2 (Per pt., she has to be fed while in hospital.) Lower Body Dressing (FIM): 1 Toileting (FIM): 1 (Pt. has catheter.) Other Treatments Pt. agreed to sit on side of bed. However, once she began transfer, became upset at OT for making her transfer. Once she was laid back down for comfort, became upset again that she was laying down. Pt. somewhat confused. Agreed to transfer again to side of bed. Max x 2 for supine-sit. Pt. unable to scoot self to edge of bed, and required max assist. Sat on side of bed approximately 10 minutes with CGA. Pt. has poor memory, and states things that aren't true, as nursing is in room and is able to state what is or isn't true. Pt. states that she can't feed herself, and this seems true as pt. has tremors and weakness in bilateral hands. Required max assist for sit-supine, and then max x 2 for bed mobility. Once comfortable, OT went and came back with adaptive equipment to make feeding easier. Pt. given Isaac cup and is able to drink from it. Pt. also issued built up foam handle for fork, and plate guard. Pt. and nursing educated on this. Pt. is also given hand sponge to increase overall strength with hands, as well as decrease swelling. All needs met in room. Education OT Patient Education: Correct positioning, Exercise program, Modified ADL techniques, Progress toward Goal/Update tx plan, Purpose of tx/functional activities, Reviewed precautions, Rehab process, Transfer techniques Teaching Recipient: Patient Teaching Methods: Demonstration, Discussion Response to Teaching: Verbalize Understanding, Return Demonstration OT Short Term Goals Short Term Goals Time Frame: Nov 21, 2016 Eating(FIM): 5 Grooming(FIM): 5 Upper Body Dressing(FIM): 4 Toileting(FIM): 3 Transfers (B,C,W/C) (FIM): 3 Toilet/Commode Transfer(FIM): 3 Additional Short Term Goals: 1-Demonstrate ADL Tasks, 2-Verbalize Understanding , 3-ImproveStrength/Bryan 1=Demonstrate adherence to instructed precautions during ADL tasks. 2=Patient will verbalize/demonstrate understanding of assistive devices/ modifications for ADL. 3=Patient will improve strength/tolerance for activity to enable patient to perform ADL's. OT Cell Biologist Goals Halfway Goals Time Frame: Nov 28, 2016 Eating (FIM): 5 Grooming(FIM): 5 Upper Body Dressing(FIM): 5 Toileting(FIM): 5 Transfers (B,C,W/C) (FIM): 5 Toilet/Commode Transfer(FIM): 5 Additional Goals: 1-Demonstrate ADL Tasks, 2-Verbalize Understanding, 3- ImproveStrength/Bryan 1=Demonstrate adherence to instructed precautions during ADL tasks. 2=Patient will verbalize/demonstrate understanding of assistive devices/ modifications for ADL. 3=Patient will improve strength/tolerance for activity to enable patient to perform ADL's. OT Education/Plan Problem List/Assessment Assessment: Decreased Activ Tolerance, Decreased Safety Aware, Decreased UE Strength, Dependent Transfers, Impaired Bed Mobility, Impaired Cognition, Impaired Coordination, Impaired Funct Balance, Impaired I ADL's, Impaired Self- Care Skills, Restricted Funct UE ROM Discharge Recommendations Plan/Recommendations: Continue POC Therapy D/C Recommendations: 24 hr Supervision, [facility] Placement Barriers to Progress Confusion Treatment Plan/Plan of Care Treatment,Training & Education: Yes Patient would benefit from OT for education, treatment and training to promote independence in ADL's, mobility, safety and/or upper extremity function for ADL' s. Plan of Care: ADL Retraining, Functional Mobility, UE Funct Exercise/Act Treatment Duration: Nov 28, 2016 Visits Per Week: 5-6 Agreement: Yes Rehab Potential: Fair Time/GCodes Start Time: 13:40 Stop Time: 14:20 Total Time Billed (hr/min): 40 Billed Treatment Time 1, EVmod x 10minutes, FA x 30minutes Selfcur-CM Selfgoal-CK FROILAN CARRERO OT November 14, 2016 14:27
[2016-11-14] MEDS: ENOXAPARIN 100 MG/1 ML (LOVENOX) SYR SC SCH (15:36)
[2016-11-14] MEDS: morphine INJ 4 MG/ML 1 ML (VIAL/SYRINGE) IVP PRN (17:29)
[2016-11-14] MEDS: DONEPEZIL 10 MG (ARICEPT) TAB PO SCH (20:59)
[2016-11-14] MEDS: MELATONIN 3 MG TABLET PO SCH (21:00)
[2016-11-14] MEDS: SIMvastatin 10 MG (ZOCOR) TAB PO SCH (21:00)
[2016-11-14] MEDS: AMITRIPTYLINE 50 MG (ELAVIL) TAB PO SCH (21:16)
[2016-11-15] MEDS: NS IV 1000 ML 1,000 ML IV SCH (03:02)
[2016-11-15] MEDS: morphine INJ 4 MG/ML 1 ML (VIAL/SYRINGE) IVP PRN (03:09)
[2016-11-15 03:57] VITALS: BP 139/75
[2016-11-15] MEDS: PANTOPRAZOLE 40 MG (PROTONIX) TAB PO SCH (06:12)
[2016-11-15] MEDS: SUCRALFATE 1 GM (CARAFATE) TAB PO SCH ×2 (06:12→13:27)
[2016-11-15] MEDS: morphine ER 30 MG (MS CONTIN) TAB PO SCH (06:12)
[2016-11-15 08:00] VITALS: BP 130/75
[2016-11-15] MEDS: meTOprolol TARTRATE 25 MG (LOPRESSOR) TABLET PO SCH (09:48)
[2016-11-15] MEDS: LACTOBACILLUS Acidoph/Bulgar (LACTINEX/FLORANEX) TAB PO SCH (09:48)
[2016-11-15] MEDS: SIMETHICONE 80 MG (MYLICON) CHEW PO SCH (09:48)
[2016-11-15] MEDS: VITAMIN D3 1,000 UNITS (CHOLECALCIFEROL) TABLET PO SCH (09:48)
[2016-11-15] MEDS: ASPIRIN 81 MG CHEW (CHILDREN'S ASA) PO SCH (09:48)
[2016-11-15] MEDS: CLOPIDOGREL 75 MG (PLAVIX) TABLET PO SCH (09:48)
[2016-11-15] MEDS: PREGABALIN 100 MG (LYRICA) CAPSULE PO SCH ×2 (09:50→13:27)
[2016-11-15 10:00] VITALS: BP 129/73
--- NOTE | 2016-11-15 10:19 | Progress Note-Hospitalist ---
Standard Progress Note Progress Notes/Assess & Plan Date Seen 11/15/16 Diagnosis Hypoxia Assess & Plan/Chief Complaint The patient is an 85-year-old white female known to me as I had seen her in the emergency room at the time of her admission. She looks remarkably better today than there. She is capable of conversation. She reports that she has no recollection of her ER visit. Subsequently she has been found to be uniformly hypoxic. 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 She also demonstrated acute on chronic renal failure and therefore was not deemed a candidate for angiography. Physical exam: The patient is much more alert than I last found her to be. Lungs are shallow but clear. CV is regular. Abdomen is obese. Ankles show no pedal edema. Impression: NSTEMI. 2.hypoxia. 3.previous above-knee amputation. 4.end-of- life issues. Plan: New order home O2. Hospice services have been offered however the patient does not believe she needs them at this time. Labs Laboratory Tests 11/14/16 04:41 Copy Copies To 1: PETRA CARUSO RODNEY K MD November 15, 2016 10:19
[2016-11-15] MEDS ORDERED: METO-333 PO (10:52)
[2016-11-15 12:00] VITALS: BP 129/73
--- NOTE | 2016-11-15 12:38 | Occ Therapy Progress Note ---
Therapy Progress Note Attempted OT treatment at 1230. Pt resting in bed. Pt states she is very tired right now. Pt has difficulty keeping eyes open during conversation. Declined therapy at this time. Per chart and report from nurse aide, pt to be discharged today. Pt in bed with needs in reach. 1, visit MOUSTAPHA LAWRENCE OT November 15, 2016 12:38
[2016-11-15] MEDS: ENOXAPARIN 100 MG/1 ML (LOVENOX) SYR SC SCH (13:27)
--- NOTE | 2016-11-15 16:26 | Cardiology Progress Note ---
Cardiology SOAP Progress Note Subjective: No chest pain Objective: I&O/Vital Signs Vital Sign - Last 12Hours 11/15/16 11/15/16 11/15/16 11/15/16 07:45 08:00 09:30 10:07 Temp 98.2 Pulse 60 59 Resp 16 B/P (MAP) 130/75 Pulse Ox 99 96 O2 Flow Rate 4.00 4.00 4.00 11/15/16 11/15/16 11/15/16 12:00 13:28 14:48 Temp 97.5 Pulse 52 54 Resp 20 B/P (MAP) 129/73 Pulse Ox 98 O2 Flow Rate 4.00 Intake and Output 11/15/16 00:00 Intake Total 1700 ml Output Total 500 ml Balance 1200 ml Weight (Pounds): 219 Weight (Ounces): 5.0 Weight (Calculated Kilograms): 99.898881 Constitutional: No appears stated age, No AAO x 3, No apparent distress, No PERRL, No well-developed, No well-nourished, No other Respiratory: No accessory muscle use, No respiratory distress, No chest tender , No chest expansion is symmetric, No chest is bilaterally symmetric, No lungs clear to percussion, No lungs clear to auscultation, No crackles, No rhonchi, No rales, No stridor, No wheezing, No pleural rub, No other Cardiovascular: regular rate-rhythm, No irregularly irregular, No extra beats, No parasternal heave is noted, No JVD, No edema, No bradycardia, No tachycardia , No point of maximal impulse, No cardiac thrills are palpable, S1 and S2, No gallop/S3, No gallop/S4, No diastolic murmur, No systolic murmur, No friction rub, No click, No other Gastrointestional: No tender, No soft, No round, No distended, No pulsatile mass, No organomegaly, No guarding, No rebound, No tenderness, No hernia, No mass, No audible bowel sounds, No abnormal bowel sounds, No abdominal bruits, No spleenomegaly, No other Extremities: No normal range of motion, No non-tender, No normal inspection, No pedal edema, No calf tenderness, No normal capillary refill, No pelvis stable , No calf tenderness, No inflammation, No pedal edema, No slow capillary refill , No swelling, other (Right AKA), No abrasion, No clubbing, No cyanosis, No ecchymosis, No laceration, No no lower extremity edema bilateral, No significant edema, No tenderness, No wound Neurologic/Psychiatric: No manager telecom II-XII nml as tested, No no motor/sensory deficits, No alert, No normal mood/affect, No oriented x 3, No abnormal cerebellar tests, No abnormal manager telecom II-XII, No abnormal gait, No aphasia, No EOM palsy, No facial droop, No motor weakness, No sensory deficit, No depressed affect, No disoriented x 3, No other, No grossly intact, No power is 5/5 both on sides Skin: No normal color, No warm/dry, No cyanosis, No cool, No diaphoresis, No damp, No ecchymosis, No jaundice, No mottled, No pallor, No rash, No tattoos/ piercings, No ulcerations, No rash on exposed areas, No ulcerations on exposed areas, No other Results/Procedures: Labs Microbiology 11/12/16 Urine Culture - Final, Complete Streptococcus Viridans A/P: Assessment/Dx: Non-ST elevation [place], Hypoxia, Acute kidney injury Plan: Patient has significantly elevated troponin. Working diagnosis is non-ST elevation [place] as cause of her symptoms yesterday. Previous coronary angiography in 2007 was negative for any significant coronary artery disease. aspirin, Plavix, Lovenox, statin, beta ceci. LIZ inhibitor not given due to acute kidney injury. Echocardiogram shows hyperdynamic LVEF with no wall motion abnormalities. This suggest underfilling. Creatinine is improved today. The family would not want coronary angiography at this point in time. We will continue with medical therapy. Hypoxia: Likely due to non-ST elevation [place]. BNP is elevated. Contribution from acute diastolic heart failure. Significantly improved symptoms with oxygen. Acute kidney injury: Patient has acute on chronic kidney disease. Continue IV fluids and hydration. Improved kidney function in the hospital. [facility] I'll be happy to see her as an outpatient. Office information was provided to the family. Thank you for your consultation. Please call me if you have any questions. Javier Dutta MD, FACP, FACC, FSCAI, FHRS, CCDS Interventional Cardiology Cardiac Electrophysiology Vascular Medicine and Endovascular Interventions Carlin DUTTA MD November 15, 2016 4:26 pm
== END 2016-11-15 14:48 | DRG 280 ==
LOC: EDUNIT# 07:09 → ER 07:09 → 4TH 10:30 → UNDOADMOB 10:30 → 4TH 11:50 → INTOOBSV 13:03 → OBSVTOIN 13:03 → UNDODISIN 11-15 14:48
PROVIDERS: ADMIT Internal Medicine; ATTEND Internal Medicine
DX: I21.4 Non-ST elevation (NSTEMI) myocardial infarction (principal); I50.31 Acute diastolic (congestive) heart failure; J18.9 Pneumonia, unspecified organism; R09.02 Hypoxemia; N17.9 Acute kidney failure, unspecified; N18.9 Chronic kidney disease, unspecified; N39.0 Urinary tract infection, site not specified; B95.4 Other streptococcus as the cause of diseases classified elsewhere; Z66 Do not resuscitate; R32 Unspecified urinary incontinence; K58.9 Irritable bowel syndrome, unspecified; G54.6 Phantom limb syndrome with pain; G62.9 Polyneuropathy, unspecified; Z87.891 Personal history of nicotine dependence; Z89.611 Acquired absence of right leg above knee; Z85.820 Personal history of malignant melanoma of skin
CPT/HCPCS: 36415; 71010; 80053; 80164; 81000; 83880; 84484; 85007; 85025; 85027; 87088; 93005; 93306; 94640; 94664; 94760; 94761; G0378

== ENCOUNTER 2016-11-27 00:08 | Emergency (ER) | payer MEDICARE, OTHER, MEDICAID ==
[~2016-11-27] VITALS: Ht 165.1 cm; Wt 90.7 kg
[~2016-11-27 00:08] MED LIST changes: +DEXL60CA PO; +DICL100G18 TD; +KETO5DRO OU; +LOPE-134 PO; +MELA3TAB PO; +METO-333 PO; +MORP15TA PO; +MORP30TA60 PO; +ONDN4T PO; +SUCR1ORA5 PO; +VIT1TABL52 PO
[2016-11-27] MEDS ORDERED: RT-ALBUTEROL/IPRATROPIUM 3 ML (DUONEB) VIAL ONE (00:16)
[2016-11-27] MEDS ORDERED: NS IV 500 ML 500 ML IV ONE (00:19)
[2016-11-27] MEDS ORDERED: RT-ALBUTEROL/IPRATROPIUM 3 ML (DUONEB) VIAL INH ONE (00:30)
[2016-11-27 00:34] LABS: BASOPHILS % (AUTO) 0 % (0-10); EOSINOPHILS % (AUTO) 0 % (0-10); LYMPHOCYTES # (AUTO) 0.7 X 10^3 (1.0-4.0); MEAN CORPUSCULAR HEMOGLOBIN 28 PG (25-34); MEAN CORPUSCULAR HGB CONC 31 G/DL (32-36); MEAN CORPUSCULAR VOLUME 90 FL (80-99); MEAN PLATELET VOLUME 10.5 FL (7.4-10.4); MONOCYTES # (AUTO) 0.3 X 10^3 (0.0-1.0); NEUTROPHILS # (AUTO) 7.5 X 10^3 (1.8-7.8); PLATELET COUNT 174 10^3/uL (130-400); RED BLOOD COUNT 5.38 10^6/uL (4.35-5.85); RED CELL DISTRIBUTION WIDTH 14.2 % (10.0-14.5); WHITE BLOOD COUNT 8.4 10^3/uL (4.3-11.0)
[2016-11-27 00:35] LABS: LYMPHOCYTES % (AUTO) 9 % (12-44); NEUTROPHILS % (AUTO) 86 % (42-75)
[2016-11-27 00:36] LABS: MONOCYTES % (AUTO) 5 % (0-12)
[2016-11-27 00:44] LABS: PROTHROMBIN TIME PATIENT 13.2 SEC (12.2-14.7)
[2016-11-27 00:52] LABS: ALANINE AMINOTRANSFERASE 15 U/L (0-55); ALBUMIN 3.5 G/DL (3.2-4.5); ANION GAP 16 MMOL/L (5-14); ASPARTATE AMINO TRANSFERASE 25 U/L (5-34); BILIRUBIN,TOTAL 0.7 MG/DL (0.1-1.0); BLOOD UREA NITROGEN 13 MG/DL (7-18); BUN/CREATININE RATIO 11; CALCIUM 9.3 MG/DL (8.5-10.1); CARBON DIOXIDE 35 MMOL/L (21-32); CHLORIDE 96 MMOL/L (98-107); CREATININE SERUM 1.18 MG/DL (0.60-1.30); GFR ESTIMATED 43; GLUCOSE 174 MG/DL (70-105); POTASSIUM 3.9 MMOL/L (3.6-5.0); SODIUM 147 MMOL/L (135-145)
[2016-11-27 00:58] LABS: TROPONIN I < 0.30 NG/ML (<0.30)
--- NOTE | 2016-11-27 01:45 | ED General ---
General Chief Complaint: General Problems/Pain Stated Complaint: COOL,CLAMMY Nursing Triage Note: PT TO ED 6 PER EMS FOR C/O COOL ET CLAMMY W/ GENERALIZED ACHES ET PAINS. PER EMS, STAFF WAS IN TO MOVE PT ET NOTED THAT HER SKIN WAS COOL ET CLAMMY. ALSO REPORTS THAT PT HAD AN KY LAST WEEK. NO OTHER C/O VOICED Nursing Sepsis Screen: No Definite Risk Source of Information: Patient, EMS Exam Limitations: No Limitations History of Present Illness Time Seen by Provider: 00:10 Initial Comments Here with report of being cool and clammy Julio she states that she is aching all over. She hadn't really complained at the custodial but they noted that she was cool and clammy when they went to move her and so sent her here for evaluation. Denies nausea, vomiting or chest pain. Apparently had acute KY last week. Denies dysuria or diarrhea. Timing/Duration: 1/2 Hour Severity: Mild Associated Systoms: No Chest Pain, No Cough, No Nausea/Vomiting, No Shortness of Air, No Weakness Allergies and Home Medications Allergies Coded Allergies: latex (Verified Allergy, Mild, 11/12/16) Penicillins (Verified Allergy, Unknown, 11/12/16) cephalexin (Verified Allergy, Unknown, 11/12/16) codeine (Verified Allergy, Unknown, 11/12/16) povidone-iodine (Verified Allergy, Unknown, 11/12/16) soap (Verified Allergy, Unknown, 11/12/16) Home Medications Acetaminophen 325 Mg Tab, 650 MG PO Q6H PRN for PAIN, (Reported) TAKE 2 (325MG) TABLETS NEEDED FOR PAIN Amitriptyline Hcl 25 Mg Tablet, 50 MG PO HS, (Reported) Cholecalciferol 1,000 Unit Capsule, 2 TAB PO DAILY, (Reported) Clopidogrel Bisulfate 75 Mg Tablet, 75 MG PO DAILY, (Reported) Dexlansoprazole 60 Mg Cap.bp, 60 MG PO DAILY, (Reported) Diclofenac Sodium 100 Gm Gel..gram., 4 GM TD Q4H PRN for PAIN-MILD, (Reported) Donepezil Hcl 10 Mg Tab.rapdis, 10 MG PO HS, (Reported) Ketorolac Tromethamine 5 Ml Drops, 1 DROP OU QID, (Reported) Lactobacillus Rhamnosus 1 Cap Capsule, 1 CAP PO DAILY, (Reported) Loperamide HCl 2 Mg Tablet, 2 MG PO Q6H PRN for DIARRHEA, (Reported) Lorazepam 1 Mg Tab, 1 MG PO BID, (Reported) Lovastatin 20 Mg Tablet, 20 MG PO HS, (Reported) Melatonin 3 Mg Tablet, 2 TAB PO HS, (Reported) Metoprolol Tartrate 25 Mg Tablet, 12.5 MG PO BID, #60 Prescribed by: LIV PARSONS on 11/15/16 1052 Morphine Sulfate 30 Mg Tablet.er, 30 MG PO Q12H, (Reported) Morphine Sulfate 15 Mg Tablet, 15 MG PO Q6H PRN for PAIN-MODERATE, (Reported) Ondansetron HCl 4 Mg Tab, 4 MG PO Q6H PRN for NAUSEA/VOMITING-1ST LINE, ( Reported) Pregabalin 200 Mg Capsule, 200 MG PO TID, (Reported) Simethicone 80 Mg Tab.chew, 80 MG PO BID, (Reported) Sucralfate 1 Gm/10 Ml Oral.susp, 10 ML PO TID, (Reported) Vit B Cmplx 3/FA/Vit C/Biotin 1 Each Tablet, 1 EACH PO DAILY, (Reported) Constitutional: see HPI, No chills, No fever EENTM: no symptoms reported Respiratory: no symptoms reported Cardiovascular: see HPI, No chest pain, No palpitations Gastrointestinal: No abdominal pain, No nausea, No vomiting Genitourinary: No dysuria, No pain Musculoskeletal: No joint pain, muscle pain Skin: no symptoms reported Psychiatric/Neurological: No Symptoms Reported All Other Systems Reviewed Negative Unless Noted: Yes Past Pyztflg-Vnhdvw-Hxyyvr Hx Patient Social History Alcohol Use: Denies Use Recreational Drug Use: No Smoking Status: Former Smoker Type Used: Cigarettes Recent Foreign Travel: No Contact w/Someone Who Travel: No Recent Infectious Disease Expo: No Recent Hopitalizations: No Immunizations Up To Date Tetanus Booster (TDap): Unknown Date of Pneumonia Vaccine: Apr 17, 2009 Seasonal Allergies Seasonal Allergies: No Surgeries HX Surgeries: Yes Surgeries: Amputation, Hysterectomy Respiratory Hx Respiratory Disorders: No Cardiovascular Hx Cardiac Disorders: No Neurological Hx Neurological Disorders: Yes Neurological Disorders: Neuropathy Reproductive System Hx Reproductive Disorders: No Sexually Transmitted Disease: No Genitourinary Hx Genitourinary Disorders: Yes (INCONTINENCE) Gastrointestinal Hx Gastrointestinal Disorders: Yes (DIVERTICULITIS, IBS, ) Gastrointestinal Disorders: Gastroesophageal Reflux, Chronic Constipation Musculoskeletal Hx Musculoskeletal Disorders: Yes Musculoskeletal Disorders: Amputee Endocrine Hx Endocrine Disorders: No HEENT HX ENT Disorders: Yes (difficulty swallowing pills) Cancer Cancer: Skin Psychosocial Hx Psychiatric Problems: Yes Behavioral Health Disorders: Sleep Difficulties, Anxiety, Depression Integumentary HX Skin/Integumentary Disorder: Yes (history of melanoma) Blood Transfusions Hx Blood Disorders: No Reviewed Nursing Assessment Reviewed/Agree w Nursing PMH: Yes Family Medical History Family Medial History: Completed stroke 19 MOTHER Diabetes mellitus 19 MOTHER Myocardial infarction 19 MOTHER Physical Exam-Suspected Sepsis Physical Exam Vital Signs Vital Sign - Last 12Hours 11/27/16 11/27/16 00:22 00:30 Temp 96.9 Pulse 81 Resp 24 B/P (MAP) 124/58 Pulse Ox 74 O2 Delivery Nasal Cannula O2 Flow Rate 4.00 Capillary Refill : Less Than 3 Seconds Blood Pressure Mean: 80 General Appearance: No Apparent Distress, Chronically ill, Obese HEENT: PERRL/EOMI, TMs Normal, Pharynx Normal Neck: Non Tender, Supple Respiratory: Lungs Clear, Normal Breath Sounds Cardiovascular: Regular Rate, Rhythm, No Murmur Gastrointestinal: Non Tender, Soft Back: Normal Inspection, No CVA Tenderness, No Vertebral Tenderness Extremity: Non Tender, No Calf Tenderness, Other (right lower extremity AKA) Neurologic/Psychiatric: Alert, Oriented x3 Skin: normal color, cool Focused Exam Lactic Acid Level Laboratory Tests Test 11/27/16 00:27 Lactic Acid Level 1.87 MMOL/L (0.50-2.00) Progress/Results/Core Measures Suspected Sepsis Recent Fever Within 48 Hours: No Infection Criteria Present: None New/Unexplained Altered Menta: No Sepsis Screen: No Definite Risk Sepsis Diagnosis: SIRS Temperature:96.9 Pulse: 81 Respiratory Rate: 24 Laboratory Tests 11/27/16 00:27: White Blood Count 8.4 Blood Pressure 124 /58 Mean: 80 Laboratory Tests 11/27/16 00:27: Creatinine 1.18, INR Comment 1.0, Platelet Count 174, Total Bilirubin 0.7 Results/Orders Lab Results Laboratory Tests Test 11/27/16 00:27 11/27/16 01:45 Range/Units White Blood Count 8.4 4.3-11.0 10^3/uL Red Blood Count 5.38 4.35-5.85 10^6/uL Hemoglobin 14.8 11.5-16.0 G/DL Hematocrit 49 35-52 % Mean Corpuscular Volume 90 80-99 FL Mean Corpuscular Hemoglobin 28 25-34 PG Mean Corpuscular Hemoglobin Concent 31 L 32-36 G/DL Red Cell Distribution Width 14.2 10.0-14.5 % Platelet Count 174 130-400 10^3/uL Mean Platelet Volume 10.5 H 7.4-10.4 FL Neutrophils (%) (Auto) 86 H 42-75 % Lymphocytes (%) (Auto) 9 L 12-44 % Monocytes (%) (Auto) 5 0-12 % Eosinophils (%) (Auto) 0 0-10 % Basophils (%) (Auto) 0 0-10 % Neutrophils # (Auto) 7.5 1.8-7.8 X 10^3 Lymphocytes # (Auto) 0.7 L 1.0-4.0 X 10^3 Monocytes # (Auto) 0.3 0.0-1.0 X 10^3 Eosinophils # (Auto) 0.0 0.0-0.3 10^3/uL Basophils # (Auto) 0.0 0.0-0.1 10^3/uL Prothrombin Time 13.2 12.2-14.7 SEC INR Comment 1.0 0.8-1.4 Activated Partial Thromboplast Time 30 24-35 SEC Sodium Level 147 H 135-145 MMOL/L Potassium Level 3.9 3.6-5.0 MMOL/L Chloride Level 96 L 98-107 MMOL/L Carbon Dioxide Level 35 H 21-32 MMOL/L Anion Gap 16 H 5-14 MMOL/L Blood Urea Nitrogen 13 7-18 MG/DL Creatinine 1.18 0.60-1.30 MG/DL Estimat Glomerular Filtration Rate 43 BUN/Creatinine Ratio 11 Glucose Level 174 H 70-105 MG/DL Lactic Acid Level 1.87 0.50-2.00 MMOL/L Calcium Level 9.3 8.5-10.1 MG/DL Total Bilirubin 0.7 0.1-1.0 MG/DL Aspartate Amino Transf (AST/SGOT) 25 5-34 U/L Alanine Aminotransferase (ALT/SGPT) 15 0-55 U/L Alkaline Phosphatase 84 40-136 U/L Troponin I < 0.30 <0.30 NG/ML Total Protein 7.0 6.4-8.2 G/DL Albumin 3.5 3.2-4.5 G/DL Urine Color DARK YELLOW Urine Clarity SLIGHTLY CLOUDY Urine pH 5 5-9 Urine Specific [place] 1.025 H 1.016-1.022 Urine Protein 2+ H NEGATIVE Urine Glucose (UA) 1+ H NEGATIVE Urine Ketones NEGATIVE NEGATIVE Urine Nitrite NEGATIVE NEGATIVE Urine Bilirubin 1+ H NEGATIVE Urine Urobilinogen 4 H NORMAL MG/DL Urine Leukocyte Esterase 1+ H NEGATIVE Urine RBC (Auto) 2+ H NEGATIVE Urine RBC 2-5 H /HPF Urine WBC 5-10 H /HPF Urine Squamous Epithelial Cells 2-5 /HPF Urine Crystals NONE /LPF Urine Bacteria FEW H /HPF Urine Casts PRESENT /LPF Urine Hyaline Casts 2-5 H /LPF Urine Mucus LARGE H /LPF Urine Culture Indicated YES My Orders Orders - CAITLIN ROTH MD Cbc With Automated Diff (11/27/16:) Comprehensive Metabolic Panel (11/27/16:) Lactic Acid Analyzer (11/27/16:) Blood Culture (11/27/16:) Sputum Culture (11/27/16:) Ua Culture If Indicated (11/27/16:) Protime With Inr (11/27/16:) Partial Thromboplastin Time (11/27/16:) Chest 1 View, Ap/Pa Only (11/27/16:) O2 (11/27/16:) Saline Lock/Iv-Start (11/27/16:) Saline Lock/Iv-Start (11/27/16 00:) Ekg Tracing (11/27/16:) Troponin I (11/27/16:) Vital Signs Adult Sepsis Patie Q1HR (11/27/16 00:19) Remove Rings In Anticipation O (11/27/16 00:19) Ns Iv 500 Ml (Sodium Chloride 0.9%) (11/27/16 00:19) Albuterol/Ipra Inhalation Soln (Duoneb I (11/27/16 00:30) Svn Sm Volume Nebulizer Rt-Rfs (11/27/16 00:19) Albuterol/Ipra Inhalation Soln (Duoneb I (11/27/16 00:16) Urine Culture (11/27/16 01:45) Levaquin 500mg Po (11/27/16 03:15) Medications Given in ED Current Medications Medications Dose Ordered Sig/Elisabet Route Start Time Stop Time Status Last Admin Dose Admin Albuterol/ Ipratropium 3 ml ONCE ONCE INH 11/27/16 00:30 11/27/16 00:31 DC 11/27/16 00:22 3 ML Sodium Chloride 500 ml @ 0 mls/hr Q0M ONCE IV 11/27/16 00:19 11/27/16 00:22 DC 11/27/16 00:56 500 MLS/HR Vital Signs/I&O Vital Sign - Last 12Hours 11/27/16 11/27/16 00:22 00:30 Temp 96.9 Pulse 81 Resp 24 B/P (MAP) 124/58 Pulse Ox 74 O2 Delivery Nasal Cannula Room Air O2 Flow Rate 4.00 Capillary Refill : Less Than 3 Seconds Blood Pressure Mean: 80 Progress Note : Progress Note Seen and evaluated. IV, labs, EKG, blood cultures, lactic acid, normal saline 500 mL bolus, UA and chest x-ray ordered. Monitor patient. Patient is afebrile and not hypothermic. 0310: Question of left basilar infiltrate. She is currently on Cipro. We will stop the Cipro and initiate Levaquin for possible infiltrate. Urine also shows questionable infection and Levaquin will cover as well. Cultures pending. Currently no indication for admission here. We will continue outpatient antibiotics. Discharged home with return precautions. Patient verbalize understanding and agreement with plan. ECG Initial ECG Impression Date: Nov 27, 2016 Initial ECG Impression Time: 00:21 Initial ECG Rate: 86 Initial ECG Rhythm: Normal Sinus Comment Sinus rhythm with right bundle branch block. No evidence of ST elevation [place]. Unchanged from previous of 11/12/16 with reported intervals [place] which may relate to rhythm change. This was noted in lead 2, 3, aVL and aVF with T-wave inversions. Diagnostic Imaging Diagonstic Imaging: Xray Plain Films/CT/US/NM/MRI: chest Comments Left basilar density atelectasis versus infiltrate Departure Impression Impression: Primary Impression: Left lower lobe pneumonia Qualified Codes: J18.1 - Lobar pneumonia, unspecified organism Additional Impression: Urinary tract infection Qualified Codes: N30.00 - Acute cystitis without hematuria Disposition: HOME, SELF-CARE Condition: Improved Departure-Patient Inst. Decision time for Depature: 03:19 Referrals: PETRA CARUSO DO (PCP/Family) Primary Care Physician Patient Instructions: Community-Acquired Pneumonia, Adult (DC), Urinary Tract Infection, Adult (DC) Add. Discharge Instructions: All discharge instructions reviewed with patient and/or family. Voiced understanding. Stop Cipro. Start Levaquin. Follow-up with your doctor this week for recheck and further evaluation. Return for worse pain, fever, vomiting, weakness, breathing problems or other concerns as needed. Scripts Levofloxacin (Levofloxacin) 500 Mg Tablet 500 MG PO DAILY, #6 TAB 0 Refills Prov: CAITLIN ROTH MD 11/27/16 CAITLIN ROTH MD Nov 27, 2016 01:45
[2016-11-27 01:58] LABS: KETONES,URINE NEGATIVE (NEGATIVE); LEUKOCYTE ESTERASE ,URINE 1+ (NEGATIVE); NITRITE,URINE NEGATIVE (NEGATIVE); PH,URINE 5 (5-9); PROTEIN,URINE 2+ (NEGATIVE); UROBILINOGEN,URINE 4 MG/DL (NORMAL)
[2016-11-27 02:07] LABS: BILIRUBIN,URINE 1+ (NEGATIVE)
[2016-11-27] MEDS ORDERED: LEVOFLOXACIN 500 MG TAB (LEVAQUIN) PO STA (03:15)
[2016-11-27] MEDS ORDERED: LEVO500T80 PO (03:21)
[2016-11-27 03:57] VITALS: BP 130/76
--- NOTE | 2016-11-27 10:12 | Diagnostic Imaging Report ---
INDICATION: Aches and pains. Comparison is made with prior examination from 11/12/16. FINDINGS: There is unchanged elevation of the right hemidiaphragm. There is cardiomegaly and some central pulmonary venous congestion. There is some left perihilar atelectasis and/or pneumonitis. There is no pleural effusion or pneumothorax. The mediastinum is unremarkable. IMPRESSION: Left perihilar atelectasis and/or pneumonitis. Cardiomegaly and some central pulmonary venous congestion. Unchanged elevation of the right hemidiaphragm. Dictated by: Dictated on workstation # [id number]
== END 2016-11-27 03:57 | disposition home or self-care (01) ==
LOC: EDUNIT# 00:08 → ER 00:09
DX: J18.1 Lobar pneumonia, unspecified organism (principal); N39.0 Urinary tract infection, site not specified; I25.2 Old myocardial infarction; Z87.891 Personal history of nicotine dependence
CPT/HCPCS: 36415; 71010; 80053; 81000; 83605; 84484; 85025; 85610; 85730; 87040; 87088; 93005; 94640

== ENCOUNTER 2016-12-04 14:31 | Inpatient (IN) | payer MEDICARE, OTHER, MEDICAID ==
[~2016-12-04] VITALS: Ht 165.1 cm; Wt 99.4 kg
[2016-12-04] VITALS (7 sets, daily range): BP systolic 140–174; BP diastolic 59–99
[~2016-12-04 14:31] MED LIST changes: +LEVO500T80 PO
--- NOTE | 2016-12-04 14:42 | ED Cardiac General ---
History of Present Illness General Stated Complaint: COLD,CLAMMY Source: patient Exam Limitations: no limitations History of Present Illness Time seen by provider: 14:39 Initial Comments to ER per EMS from [facility] with reports of patient being cold and clammy and with a high heart rate. EMS found the patient's heart rate to be irregular in the 140s. Unable to palpate a blood pressure. Hypoxic at 78 percent. She was given 10 L nonrebreather and oxygen saturation increased 100 percent. Upon arrival to ER mild distress. Respiratory rate is 24, oxygen saturation is 88 percent, diaphoretic. Patient is DO NOT RESUSCITATE status. Severity: moderate Activities at Onset: none NTG SL MEAT CARVER: No ASA po MEAT CARVER: No Associated Systoms: Shortness of Air Allergies and Home Medications Allergies Coded Allergies: latex (Verified Allergy, Mild, 11/12/16) Penicillins (Verified Allergy, Unknown, 11/12/16) cephalexin (Verified Allergy, Unknown, 11/12/16) codeine (Verified Allergy, Unknown, 11/12/16) povidone-iodine (Verified Allergy, Unknown, 11/12/16) soap (Verified Allergy, Unknown, 11/12/16) Home Medications Acetaminophen 325 Mg Tab, 650 MG PO Q6H PRN for PAIN, (Reported) TAKE 2 (325MG) TABLETS NEEDED FOR PAIN Amitriptyline Hcl 25 Mg Tablet, 50 MG PO HS, (Reported) Cholecalciferol 1,000 Unit Capsule, 2 TAB PO DAILY, (Reported) Clopidogrel Bisulfate 75 Mg Tablet, 75 MG PO DAILY, (Reported) Dexlansoprazole 60 Mg Nadeem., 60 MG PO DAILY, (Reported) Diclofenac Sodium 100 Gm Gel..gram., 4 GM TD Q4H PRN for PAIN-MILD, (Reported) Donepezil Hcl 10 Mg Tab.rapdis, 10 MG PO HS, (Reported) Ketorolac Tromethamine 5 Ml Drops, 1 DROP OU QID, (Reported) Lactobacillus Rhamnosus 1 Cap Capsule, 1 CAP PO DAILY, (Reported) Levofloxacin 500 Mg Tablet, 500 MG PO DAILY, #6 Ref 0 Prescribed by: CAITLIN ROTH on 11/27/16 0321 Loperamide HCl 2 Mg Tablet, 2 MG PO Q6H PRN for DIARRHEA, (Reported) Lorazepam 1 Mg Tab, 1 MG PO BID, (Reported) Lovastatin 20 Mg Tablet, 20 MG PO HS, (Reported) Melatonin 3 Mg Tablet, 2 TAB PO HS, (Reported) Metoprolol Tartrate 25 Mg Tablet, 12.5 MG PO BID, #60 Prescribed by: LIV PARSONS on 11/15/16 1052 Morphine Sulfate 30 Mg Tablet.er, 30 MG PO Q12H, (Reported) Morphine Sulfate 15 Mg Tablet, 15 MG PO Q6H PRN for PAIN-MODERATE, (Reported) Ondansetron HCl 4 Mg Tab, 4 MG PO Q6H PRN for NAUSEA/VOMITING-1ST LINE, ( Reported) Pregabalin 200 Mg Capsule, 200 MG PO TID, (Reported) Simethicone 80 Mg Tab.chew, 80 MG PO BID, (Reported) Sucralfate 1 Gm/10 Ml Oral.susp, 10 ML PO TID, (Reported) Vit B Cmplx 3/FA/Vit C/Biotin 1 Each Tablet, 1 EACH PO DAILY, (Reported) Review of Systems Constitutional: see HPI EENTM: No Symptoms Reported Respiratory: See HPI, Orthopnea, Shortness of Air Cardiovascular: See HPI Gastrointestinal: No Symptoms Reported Genitourinary: No Symptoms Reported Musculoskeletal: no symptoms reported Skin: no symptoms reported Psychiatric/Neurological: No Symptoms Reported Endocrine: No Symptoms Reported Hematologic/Lymphatic: No Symptoms Reported Past Hppuwxo-Ebhnyt-Scwtnz Hx Patient Social History Type Used: Cigarettes Recent Hopitalizations: No Immunizations Up To Date Tetanus Booster (TDap): Unknown Date of Pneumonia Vaccine: Apr 17, 2009 Seasonal Allergies Seasonal Allergies: No Surgeries HX Surgeries: Yes Surgeries: Amputation, Hysterectomy Respiratory Hx Respiratory Disorders: No Cardiovascular Hx Cardiac Disorders: No Neurological Hx Neurological Disorders: Yes Neurological Disorders: Neuropathy Reproductive System Hx Reproductive Disorders: No Sexually Transmitted Disease: No Genitourinary Hx Genitourinary Disorders: Yes (INCONTINENCE) Gastrointestinal Hx Gastrointestinal Disorders: Yes (DIVERTICULITIS, IBS, ) Gastrointestinal Disorders: Gastroesophageal Reflux, Chronic Constipation Musculoskeletal Hx Musculoskeletal Disorders: Yes Musculoskeletal Disorders: Amputee Endocrine Hx Endocrine Disorders: No HEENT HX ENT Disorders: Yes (difficulty swallowing pills) Cancer Cancer: Skin Psychosocial Hx Psychiatric Problems: Yes Behavioral Health Disorders: Sleep Difficulties, Anxiety, Depression Integumentary HX Skin/Integumentary Disorder: Yes (history of melanoma) Blood Transfusions Hx Blood Disorders: No Family Medical History Family Medial History: Completed stroke 19 MOTHER Diabetes mellitus 19 MOTHER Myocardial infarction 19 MOTHER Physical Exam Vital Signs Vital Sign - Last 12Hours 12/04/16 12/04/16 14:38 15:30 Temp 96.0 Pulse 147 Resp 20 B/P (MAP) 160/118 Pulse Ox 88 O2 Flow Rate 3.00 Capillary Refill : General Appearance: No Apparent Distress, WD/WN, Chronically ill, Moderate Distress, Other (diaphoretic) HEENT: PERRL/EOMI, TMs Normal Neck: Full Range of Motion, Normal Inspection Respiratory: No Accessory Muscle Use, No Respiratory Distress Cardiovascular: No Murmur, Tachycardia (irregular in the 140s) Gastrointestinal: Non Tender Extremity: Other (she has a right ritef-wlf-nqzx amputee) Neurologic/Psychiatric: Alert, Oriented x3 Skin: Normal Color, Warm/Dry Focused Exam Lactic Acid Level Laboratory Tests Test 12/04/16 14:40 Lactic Acid Level 1.44 MMOL/L (0.50-2.00) Progress/Results/Core Measures Results/Orders Lab Results Laboratory Tests Test 12/04/16 14:40 Range/Units White Blood Count 8.7 4.3-11.0 10^3/uL Red Blood Count 5.64 4.35-5.85 10^6/uL Hemoglobin 15.4 11.5-16.0 G/DL Hematocrit 49 35-52 % Mean Corpuscular Volume 87 80-99 FL Mean Corpuscular Hemoglobin 27 25-34 PG Mean Corpuscular Hemoglobin Concent 31 L 32-36 G/DL Red Cell Distribution Width 14.5 10.0-14.5 % Platelet Count 156 130-400 10^3/uL Mean Platelet Volume 11.7 H 7.4-10.4 FL Neutrophils (%) (Auto) 79 H 42-75 % Lymphocytes (%) (Auto) 14 12-44 % Monocytes (%) (Auto) 6 0-12 % Eosinophils (%) (Auto) 1 0-10 % Basophils (%) (Auto) 0 0-10 % Neutrophils # (Auto) 6.8 1.8-7.8 X 10^3 Lymphocytes # (Auto) 1.2 1.0-4.0 X 10^3 Monocytes # (Auto) 0.6 0.0-1.0 X 10^3 Eosinophils # (Auto) 0.0 0.0-0.3 10^3/uL Basophils # (Auto) 0.0 0.0-0.1 10^3/uL Sodium Level 145 135-145 MMOL/L Potassium Level 3.6 3.6-5.0 MMOL/L Chloride Level 97 L 98-107 MMOL/L Carbon Dioxide Level 34 H 21-32 MMOL/L Anion Gap 14 5-14 MMOL/L Blood Urea Nitrogen 17 7-18 MG/DL Creatinine 1.05 0.60-1.30 MG/DL Estimat Glomerular Filtration Rate 50 BUN/Creatinine Ratio 16 0-20 Glucose Level 148 H 70-105 MG/DL Lactic Acid Level 1.44 0.50-2.00 MMOL/L Calcium Level 9.8 8.5-10.1 MG/DL Magnesium Level 1.6 L 1.8-2.4 MG/DL Total Bilirubin 1.1 H 0.1-1.0 MG/DL Aspartate Amino Transf (AST/SGOT) 22 5-34 U/L Alanine Aminotransferase (ALT/SGPT) 11 0-55 U/L Alkaline Phosphatase 95 40-136 U/L Troponin I < 0.30 <0.30 NG/ML B-Type Natriuretic Peptide 1127.9 H <100.0 PG/ML Total Protein 7.4 6.4-8.2 GM/DL Albumin 3.7 3.2-4.5 GM/DL My Orders Orders - TYRONE DOUGLAS APRN Cbc With Automated Diff (12/04/16 14:38) Comprehensive Metabolic Panel (12/04/16 14:38) BNP (12/04/16 14:38) Troponin I (12/04/16 14:38) Magnesium (12/04/16 14:38) Chest 1 View, Ap/Pa Only (12/04/16 14:38) Ua Culture If Indicated (12/04/16 14:38) Continuous Ekg Monitoring (12/04/16 14:38) Ekg Tracing (12/04/16 14:38) Diltiazem Injection (Cardizem Injection) (12/04/16 14:45) Sodium Chloride (Ad... W/Diltiazem Drip (12/04/16 14:45) Blood Culture (12/04/16 14:48) Lactic Acid Analyzer (12/04/16 14:48) Metoprolol Tartrate Injection (Lopressor (12/04/16 15:00) Ns Iv 1000 Ml (Sodium Chloride 0.9%) (12/04/16 15:00) Sodium Chloride (Ad... W/Diltiazem Drip (12/04/16 15:30) Diltiazem Injection (Cardizem Injection) (12/04/16 15:30) Medications Given in ED Current Medications Medications Dose Ordered Sig/Elisabet Route Start Time Stop Time Status Last Admin Dose Admin Diltiazem HCl 10 mg ONCE ONCE IVP 12/04/16 15:30 12/04/16 15:31 DC 12/04/16 15:29 10 MG Metoprolol Tartrate 5 mg ONCE ONCE IV 12/04/16 15:00 12/04/16 15:01 DC 12/04/16 15:02 5 MG Vital Signs/I&O Vital Sign - Last 12Hours 12/04/16 12/04/16 14:38 15:30 Temp 96.0 Pulse 147 109 Resp 20 16 B/P (MAP) 160/118 130/105 Pulse Ox 88 O2 Flow Rate 3.00 Diagnostic Imaging Diagonstic Imaging: Xray Plain Films/CT/US/NM/MRI: chest Comments NAME: JOSE GALL[facility]AY [facility] REC#: [id number] PT STATUS: REG ER : 1930 PHYSICIAN: TYRONE DOUGLAS APRN ADMIT DATE: 12/04/16/ER Draft Date of Exam:12/04/16 CHEST 1 VIEW, AP/PA ONLY INDICATION: Shortness of breath, chest discomfort. TECHNIQUE: Single-view chest at 2:48 p.m. CORRELATION STUDY: 11/27/2016. FINDINGS: Very limited depth of inspiration. There is rather pronounced elevation of the right hemidiaphragm with atelectasis or infiltrate at the right lung base. Additional irregular parenchymal density in the right suprahilar region is present along the paramediastinal aspect. Left lung appearing generally clear. Right heart border is obscured with the heart size generally enlarged. Very mild vascular congestion present. IMPRESSION: 1. Cardiac enlargement. Vascularity is prominent without evidence of overt failure. 2. Rather pronounced elevation of the right hemidiaphragm. Irregular appearance about the right hilum is noted. Possibility of lymphadenopathy and/or mass lesion as etiology of elevated diaphragm not excluded. Continued followup imaging and/or CT imaging would be recommended. Dictated on workstation # [id number] Dict: 12/04/16 1501 Trans: 12/04/16 1524 [id number] Interpreted by: JESSICA LEVINE DO Electronically signed by: Departure Communication Progress Notes 1518-upon arrival heart rate was 140 fairly regular. Blood pressure was adequate she was given 5 mg of Lopressor. This initially appeared to be sinus tach however after administering the Lopressor was more apparent that this was atrial flutter. Heart rate remained 120s to 130. Blood pressure remained adequate so Cardizem drip was started. Patient reported significant improvement in her dyspnea. 1600-patient has now converted to sinus rhythm with a rate of 64. 1624-to notify Dr. Alvarez of the conversion to sinus rhythm. We will stop the Cardizem drip and place her on Cardizem CD 240 mg now then daily Impression Impression: Primary Impression: Atrial flutter with rapid ventricular response Disposition: ADMITTED INPATIENT Condition: Stable Decision to Admit Reason: Admit from ER (General) Decision to Admit/Date: Dec 04, 2016 Time/Decision to Admit Time: 15:19 Departure-Patient Inst. Referrals: PETRA CARUSO DO (PCP/Family) Primary Care Physician TYRONE DOUGLAS APRN Dec 04, 2016 14:42
[2016-12-04] MEDS ORDERED: DILTIAZEM 25 MG/5 ML INJ (CARDIZEM) VIAL IVP ONE ×2 (14:45→15:30)
[2016-12-04] MEDS ORDERED: DILTIAZEM DRIP 100 MG in SODIUM CHLORIDE (ADD-VANTAGE) 100 ML IV SCH ×2 (14:45→15:30)
[2016-12-04 14:57] LABS: BASOPHILS % (AUTO) 0 % (0-10); EOSINOPHILS % (AUTO) 1 % (0-10); LYMPHOCYTES # (AUTO) 1.2 X 10^3 (1.0-4.0); LYMPHOCYTES % (AUTO) 14 % (12-44); MEAN CORPUSCULAR HEMOGLOBIN 27 PG (25-34); MEAN CORPUSCULAR HGB CONC 31 G/DL (32-36); MEAN CORPUSCULAR VOLUME 87 FL (80-99); MEAN PLATELET VOLUME 11.7 FL (7.4-10.4); MONOCYTES # (AUTO) 0.6 X 10^3 (0.0-1.0); MONOCYTES % (AUTO) 6 % (0-12); NEUTROPHILS # (AUTO) 6.8 X 10^3 (1.8-7.8); NEUTROPHILS % (AUTO) 79 % (42-75); PLATELET COUNT 156 10^3/uL (130-400); RED BLOOD COUNT 5.64 10^6/uL (4.35-5.85); RED CELL DISTRIBUTION WIDTH 14.5 % (10.0-14.5); WHITE BLOOD COUNT 8.7 10^3/uL (4.3-11.0)
[2016-12-04] MEDS ORDERED: meTOprolol 5 MG/5 ML (LOPRESSOR) VIAL IV ONE (15:00)
[2016-12-04] MEDS ORDERED: NS IV 1000 ML 1,000 ML IV SCH (15:00)
[2016-12-04 15:15] LABS: ALANINE AMINOTRANSFERASE 11 U/L (0-55); ALBUMIN 3.7 GM/DL (3.2-4.5); ANION GAP 14 MMOL/L (5-14); ASPARTATE AMINO TRANSFERASE 22 U/L (5-34); BILIRUBIN,TOTAL 1.1 MG/DL (0.1-1.0); BLOOD UREA NITROGEN 17 MG/DL (7-18); BUN/CREATININE RATIO 16 (0-20); CALCIUM 9.8 MG/DL (8.5-10.1); CARBON DIOXIDE 34 MMOL/L (21-32); CHLORIDE 97 MMOL/L (98-107); CREATININE SERUM 1.05 MG/DL (0.60-1.30); GFR ESTIMATED 50; GLUCOSE 148 MG/DL (70-105); HEMOLYSIS 6 (-100-29); ICTERUS 0.9 (-100-1.9); LIPEMIA 4 (-100-49); MAGNESIUM 1.6 MG/DL (1.8-2.4); POTASSIUM 3.6 MMOL/L (3.6-5.0); SODIUM 145 MMOL/L (135-145); TOTAL PROTEIN 7.4 GM/DL (6.4-8.2)
[2016-12-04 15:21] LABS: TROPONIN I < 0.30 NG/ML (<0.30)
--- NOTE | 2016-12-04 15:24 | Diagnostic Imaging Report ---
INDICATION: Shortness of breath, chest discomfort. TECHNIQUE: Single-view chest at 2:48 p.m. CORRELATION STUDY: 11/27/2016. FINDINGS: Very limited depth of inspiration. There is rather pronounced elevation of the right hemidiaphragm with atelectasis or infiltrate at the right lung base. Additional irregular parenchymal density in the right suprahilar region is present along the paramediastinal aspect. Left lung appearing generally clear. Right heart border is obscured with the heart size generally enlarged. Very mild vascular congestion present. IMPRESSION: 1. Cardiac enlargement. Vascularity is prominent without evidence of overt failure. 2. Rather pronounced elevation of the right hemidiaphragm. Irregular appearance about the right hilum is noted. Possibility of lymphadenopathy and/or mass lesion as etiology of elevated diaphragm not excluded. Continued followup imaging and/or CT imaging would be recommended. Dictated by: Dictated on workstation # [id number]
[2016-12-04] MEDS ORDERED: FUROSEMIDE 40 MG/4 ML INJ (LASIX) IVP ONE (16:00)
[2016-12-04] MEDS ORDERED: DILTIAZEM 240 MG (CARDIZEM CD) CAP PO ONE (16:30)
[2016-12-04] MEDS ORDERED: APIXABAN 5 MG (ELIQUIS) TABLET PO ONE (16:30)
[2016-12-04] MEDS: APIXABAN 5 MG (ELIQUIS) TABLET PO SCH (18:22)
[2016-12-04] MEDS ORDERED: meTOprolol 5 MG/5 ML (LOPRESSOR) VIAL ONE (20:04)
[2016-12-05] VITALS (12 sets, daily range): BP systolic 132–200; BP diastolic 49–89
[2016-12-05] MEDS: NS IV 1000 ML 1,000 ML IV SCH ×2 (01:53→03:25)
[2016-12-05 04:18] LABS: BASOPHILS % (AUTO) 0 % (0-10); EOSINOPHILS # (AUTO) 0.1 10^3/uL (0.0-0.3); EOSINOPHILS % (AUTO) 2 % (0-10); LYMPHOCYTES # (AUTO) 1.5 X 10^3 (1.0-4.0); LYMPHOCYTES % (AUTO) 27 % (12-44); MEAN CORPUSCULAR HEMOGLOBIN 28 PG (25-34); MEAN CORPUSCULAR HGB CONC 31 G/DL (32-36); MEAN CORPUSCULAR VOLUME 88 FL (80-99); MEAN PLATELET VOLUME 11.8 FL (7.4-10.4); MONOCYTES # (AUTO) 0.4 X 10^3 (0.0-1.0); MONOCYTES % (AUTO) 7 % (0-12); NEUTROPHILS # (AUTO) 3.4 X 10^3 (1.8-7.8); NEUTROPHILS % (AUTO) 63 % (42-75); PLATELET COUNT 143 10^3/uL (130-400); RED BLOOD COUNT 4.97 10^6/uL (4.35-5.85); RED CELL DISTRIBUTION WIDTH 14.4 % (10.0-14.5); WHITE BLOOD COUNT 5.4 10^3/uL (4.3-11.0)
[2016-12-05 04:45] LABS: ALBUMIN 3.2 GM/DL (3.2-4.5); BILIRUBIN,TOTAL 1.1 MG/DL (0.1-1.0); CALCIUM 8.8 MG/DL (8.5-10.1); CREATININE SERUM 1.02 MG/DL (0.60-1.30); ICTERUS 1.1 (-100-1.9); MAGNESIUM 1.5 MG/DL (1.8-2.4); PHOSPHORUS 2.7 MG/DL (2.3-4.7); POTASSIUM 3.1 MMOL/L (3.6-5.0)
[2016-12-05] MEDS: POTASSIUM CL 10MEQ/50ML IVPB 50 ML IV SCH ×4 (05:23→08:49)
[2016-12-05] MEDS: MAGNESIUM 1 GM/100 ML IVPB 100 ML IV SCH ×2 (05:23→06:24)
[2016-12-05] MEDS ORDERED: POTASSIUM CL 10MEQ/50ML IVPB 50 ML IV SCH (06:00)
[2016-12-05] MEDS ORDERED: MAGNESIUM 1 GM/100 ML IVPB 100 ML IV SCH (06:00)
[2016-12-05] MEDS ORDERED: KCL 20 MEQ TAB (K-DUR) PO SCH (06:00)
[2016-12-05] MEDS: APIXABAN 5 MG (ELIQUIS) TABLET PO SCH ×2 (06:08→17:50)
--- NOTE | 2016-12-05 07:12 | Pulmonary Consultation ---
History of Present Illness History of Present Illness Date of Consultation 12/05/16 07:07 Date of Admission History of Present Illness 86yo presented to ED via EMS from [facility] secondary to Afib RVR pt was found to have HR 140's. Pt was also hypoxic and SOB with Sp02 of 78% which improved with oxygen therapy. Pt is a DNR. pt converted to sinus rhythm upon ICU admission. She is doing much better. now. CXR and BNP is suggestive of CHFAE. CXR is recommending CT of chest. I am consulted for pulmonary CC management. Allergies and Home Medications Allergies Coded Allergies: latex (Verified Allergy, Mild, 11/12/16) Penicillins (Verified Allergy, Unknown, 11/12/16) cephalexin (Verified Allergy, Unknown, 11/12/16) codeine (Verified Allergy, Unknown, 11/12/16) povidone-iodine (Verified Allergy, Unknown, 11/12/16) soap (Verified Allergy, Unknown, 11/12/16) Home Medications Acetaminophen 325 Mg Tab, 650 MG PO Q6H PRN for PAIN, (Reported) TAKE 2 (325MG) TABLETS NEEDED FOR PAIN Amitriptyline Hcl 25 Mg Tablet, 50 MG PO HS, (Reported) Cholecalciferol 1,000 Unit Capsule, 2 TAB PO DAILY, (Reported) Clopidogrel Bisulfate 75 Mg Tablet, 75 MG PO DAILY, (Reported) Dexlansoprazole 60 Mg Cap.bp, 60 MG PO DAILY, (Reported) Diclofenac Sodium 100 Gm Gel..gram., 4 GM TD Q4H PRN for PAIN-MILD, (Reported) Donepezil Hcl 10 Mg Tab.rapdis, 10 MG PO HS, (Reported) Ketorolac Tromethamine 5 Ml Drops, 1 DROP OU QID, (Reported) Lactobacillus Rhamnosus 1 Cap Capsule, 1 CAP PO DAILY, (Reported) Levofloxacin 500 Mg Tablet, 500 MG PO DAILY, #6 Ref 0 Prescribed by: CAITLIN ROTH on 11/27/16 0321 Loperamide HCl 2 Mg Tablet, 2 MG PO Q6H PRN for DIARRHEA, (Reported) Lorazepam 1 Mg Tab, 1 MG PO BID, (Reported) Lovastatin 20 Mg Tablet, 20 MG PO HS, (Reported) Melatonin 3 Mg Tablet, 2 TAB PO HS, (Reported) Metoprolol Tartrate 25 Mg Tablet, 12.5 MG PO BID, #60 Prescribed by: LIV PARSONS on 11/15/16 1052 Morphine Sulfate 30 Mg Tablet.er, 30 MG PO Q12H, (Reported) Morphine Sulfate 15 Mg Tablet, 15 MG PO Q6H PRN for PAIN-MODERATE, (Reported) Ondansetron HCl 4 Mg Tab, 4 MG PO Q6H PRN for NAUSEA/VOMITING-1ST LINE, ( Reported) Pregabalin 200 Mg Capsule, 200 MG PO TID, (Reported) Simethicone 80 Mg Tab.chew, 80 MG PO BID, (Reported) Sucralfate 1 Gm/10 Ml Oral.susp, 10 ML PO TID, (Reported) Vit B Cmplx 3/FA/Vit C/Biotin 1 Each Tablet, 1 EACH PO DAILY, (Reported) Past Byjahxh-Kqjjzc-Frufgx Hx Patient Social History Alcohol Use: Denies Use Recreational Drug Use: No Smoking Status: Never a Smoker Type Used: Cigarettes Recent Foreign Travel: No Contact w/Someone Who Travel: No Recent Infectious Disease Expo: No Recent Hopitalizations: No Physical Abuse Screen: No Sexual Abuse: No Immunizations Up To Date Tetanus Booster (TDap): Unknown Date of Pneumonia Vaccine: Apr 17, 2009 Seasonal Allergies Seasonal Allergies: No Surgeries HX Surgeries: Yes Surgeries: Amputation, Gallbladder, Hysterectomy Respiratory Hx Respiratory Disorders: No Cardiovascular Hx Cardiac Disorders: No Neurological Hx Neurological Disorders: Yes Neurological Disorders: Neuropathy Reproductive System Hx Reproductive Disorders: No Sexually Transmitted Disease: No Genitourinary Hx Genitourinary Disorders: Yes (INCONTINENCE) Gastrointestinal Hx Gastrointestinal Disorders: Yes (DIVERTICULITIS, IBS, ) Gastrointestinal Disorders: Gastroesophageal Reflux, Chronic Constipation Musculoskeletal Hx Musculoskeletal Disorders: Yes Musculoskeletal Disorders: Amputee Endocrine Hx Endocrine Disorders: No HEENT HX ENT Disorders: Yes (difficulty swallowing pills) Cancer Cancer: Skin Psychosocial Hx Psychiatric Problems: Yes Behavioral Health Disorders: Sleep Difficulties, Anxiety, Depression Integumentary HX Skin/Integumentary Disorder: Yes (history of melanoma) Blood Transfusions Hx Blood Disorders: No Family Medical History Family Medial History: Completed stroke 19 MOTHER Diabetes mellitus 19 MOTHER Myocardial infarction 19 MOTHER Exam Exam Vital Signs Date Time Temp Pulse Resp B/P (MAP) Pulse Ox O2 Delivery O2 Flow Rate FiO2 12/05/16 06:00 57 19 153/68 99 Nasal Cannula 3.00 12/05/16 05:00 53 15 150/54 97 Nasal Cannula 3.00 12/05/16 04:00 95 Nasal Cannula 3.00 12/05/16 04:00 58 10 175/65 94 Nasal Cannula 3.00 12/05/16 03:00 52 11 133/56 96 Nasal Cannula 3.00 12/05/16 02:00 57 13 148/64 95 Nasal Cannula 3.00 12/05/16 01:00 55 12/05/16 01:00 55 14 138/51 95 Nasal Cannula 3.00 12/05/16 00:00 95 Nasal Cannula 3.00 12/05/16 00:00 97.9 12/05/16 00:00 63 13 157/64 96 Nasal Cannula 3.00 12/04/16 23:29 Nasal Cannula 3.00 12/04/16 23:00 55 14 152/59 95 Nasal Cannula 3.00 12/04/16 22:00 63 19 140/99 94 Nasal Cannula 3.00 12/04/16 21:00 67 10 159/66 92 Nasal Cannula 3.00 12/04/16 20:00 89 17 174/96 91 Nasal Cannula 3.00 12/04/16 20:00 95 Nasal Cannula 3.00 12/04/16 20:00 97.2 12/04/16 19:00 74 16 152/77 98 Nasal Cannula 3.00 12/04/16 19:00 74 12/04/16 18:00 59 16 146/79 96 Nasal Cannula 3.00 12/04/16 17:14 64 12/04/16 17:10 Nasal Cannula 3.00 12/04/16 17:10 96.8 62 14 150/75 96 Nasal Cannula 3.00 12/04/16 16:55 58 16 98 Nasal Cannula 3.00 12/04/16 15:30 109 16 130/105 3.00 12/04/16 14:38 96.0 147 20 160/118 88 I & O 12/05/16 07:00 Intake Total 1555 ml Output Total 605 ml Balance 950 ml General Appearance: No Apparent Distress, WD/WN, Chronically ill HEENT: PERRL/EOMI, TMs Normal Neck: Full Range of Motion, Normal Inspection Respiratory: No Accessory Muscle Use, No Respiratory Distress Cardiovascular: No Murmur, Tachycardia (irregular in the 140s) Capillary Refill: Less Than 3 Seconds Gastrointestinal: normal bowel sounds, non tender, soft Extremity: Other (she has a right [id number] amputee) Neurologic/Psychiatric: Depressed Affect Skin: Normal Color, Warm/Dry Lymphatic: No Adenopathy Results Lab Laboratory Tests 12/04/16 14:40 12/05/16 04:09 Assessment/Plan Assessment/Plan Afib RVR- now sinus CHFAE -hep lock IVF -lasix -cardiology following Dyspnea with elevated right diaphragm -Check CT with contrast r/o mass obesity Electrolyte abnormality -replace PT is doing better will transfer to 4th floor. Clinical Quality Measures AMI/AHF: ASA po Prior to arrival: No DVT/VTE Risk/Contraindication: Risk Factor Score Per Nursin RFS Level Per Nursing on Admit: 4+=Very High MARY MADDEN DO Dec 05, 2016 07:12
[2016-12-05] MEDS ORDERED: IOHEXOL 350 MG/ML 100 ML (OMNIPAQUE 350) VIAL IV ONE (08:15)
[2016-12-05] MEDS ORDERED: NS 100 ML (IVPB) BAG IV ONE (08:15)
[2016-12-05] MEDS ORDERED: CATHETER FLUSH 10 ML SYR IV PRN (08:15)
--- NOTE | 2016-12-05 08:44 | Diagnostic Imaging Report ---
PROCEDURE: CT chest with contrast only. TECHNIQUE: Multiple contiguous axial images were obtained through the chest after administration of intravenous contrast. INDICATION: Shortness of breath with arrhythmia, rule out mass. FINDINGS: There is atelectasis in the posterior segment of the right upper lobe. There is minimal atelectasis in the left upper lobe along the major fissure. There is some atelectasis at the right posterior lung base. There is minimal atelectasis at the left posterior lung base. There are some calcified hilar and mediastinal lymph nodes. There is aortic atherosclerotic calcification. There is no hilar or mediastinal lymphadenopathy. There is minimal coronary atherosclerosis. There is a small calcified granuloma in the right upper lobe. There are no soft tissue density nodules or masses. There is elevation of the right hemidiaphragm. There is a small hiatal hernia. The gallbladder is surgically absent. IMPRESSION: There is some right upper lobe and dependent basilar atelectasis in both lungs. There are no masses or nodules seen in the chest. Dictated by: Dictated on workstation # [id number]
--- NOTE | 2016-12-05 08:59 | Diagnostic Imaging Report ---
INDICATION: Respiratory distress. EXAMINATION: Portable chest at 5:13 AM. FINDINGS: There is a suboptimal inspiration. The heart is mildly enlarged. The vascularity is normal. There are no consolidating infiltrates. There is no appreciable effusion or pneumothorax. IMPRESSION: Suboptimal inspiration. No change in the chest since the previous day. Dictated by: Dictated on workstation # [id number]
--- NOTE | 2016-12-05 10:26 | Consultation-Cardiology ---
HPI-Cardiology Cardiology Consultation: Date of Consultation 12/05/16 Date of Admission Attending Physician Gita Reynaga DO Admitting Physician Brennan Arguello DO Consulting Physician Carlin GALINDO MD HPI: Time Seen by Provider: 09:50 Chief Complaint: Atrial fibrillation This is a 86-year-old female who I saw in the last 4-6 weeks for an admission for non-ST elevation [place]. She was not having any significant chest pain when I saw the patient. She also had acute kidney injury therefore coronary angiography was not performed and she was treated with medical therapy alone. Her CODE STATUS is DO NOT RESUSCITATE. She presents from the long term with complain of shortness of breath and palpitations. She was found to be in atrial fibrillation with rapid ventricular rate. IV Cardizem was given which converted her to sinus rhythm. Cardizem infusion was discontinued and she was started on by mouth Cardizem. When I saw the patient she was not complaining of any palpitations or shortness of breath. 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 Her creatinine is now much improved. Review of Systems-Cardiology Review of Systems Time Seen by Provider: 09:50 Constitutional: No As described under HPI, No no symptoms reported, No chills, No fever, No lightheadedness, No malaise, No tiredness, No weight loss, No weight gain, No other Eyes: No As described under HPI, No no symptoms reported, No blindness, No blurred vision, No contact lenses, No drainage, No decreased acuity, No foreign body sensation, No glasses, No inflammation, No pain, No photophobia, No previous injury, No shadows, No tunnel vision, No other, No vision change Ears/Nose/Throat: No As described under HPI, No no symptoms reported, No chronic hearing loss, No epistaxis, No ear discharge, No ear pain, No loose teeth, No mouth pain, No mouth swelling, No nasal drainage, No nose pain, No recent hearing loss, No throat pain, No throat swelling, No ulcerations, No other Respiratory: shortness of breath Cardiovascular: irregular heart rate, palpitations Gastrointestinal: No no symptoms reported, No As described under HPI, No abdomen distended, No abdominal pain, No blood streaked bowels, No constipation , No diarrhea, No difficulty swallowing, No nausea, No poor appetite, No poor fluid intake, No rectal bleeding, No vomiting, No other, No nausea/vomiting/ diarrhea, No stool coloration changes Genitourinary: No no symptoms reported, No As described under HPI, No burning, No dysuria, No discharge, No frequency, No flank pain, No hematuria, No incontinence, No pain, No urgency, No other, No urine frequency changes, No urine coloration changes Musculoskeletal: No no symptoms reported, No As describe under HPI, No back pain, No gout, No joint pain, No joint swelling, No muscle pain, No muscle stiffness, No neck pain, No other Skin: No no symptoms reported, No As described under HPI, No change in color, No change in hair/nails, No dryness, No lesions, No lumps, No rash, No other, No skin related problems, No ulcerations, No rash on exposed areas, No ulcerations on exposed areas Psychiatric/Neurological: No As described under HPI, No anxiety, No depression , No emotional problems, No focal weakness, No headache, No no symptoms reported , No numbness, No other, No pre-existing deficit, No seizure, No syncope, No tingling, No tremors, No weakness NFX-Kemjft-Pkaddp Hx Patient Social History Alcohol Use: Denies Use Recreational Drug Use: No Smoking Status: Never a Smoker Type Used: Cigarettes Recent Foreign Travel: No Recent Infectious Disease Expo: No Physical Abuse Screen: No Sexual Abuse: No Immunizations Up To Date Tetanus Booster (TDap): Unknown Date of Pneumonia Vaccine: Apr 17, 2009 Past Medical History PMH As described under Assessment. Family Medical History Family History: Completed stroke 19 MOTHER Diabetes mellitus 19 MOTHER Myocardial infarction 19 MOTHER Allergies and Home Medications Allergies Coded Allergies: latex (Verified Allergy, Mild, 11/12/16) Penicillins (Verified Allergy, Unknown, 11/12/16) cephalexin (Verified Allergy, Unknown, 11/12/16) codeine (Verified Allergy, Unknown, 11/12/16) povidone-iodine (Verified Allergy, Unknown, 11/12/16) soap (Verified Allergy, Unknown, 11/12/16) Home Medications Acetaminophen 325 Mg Tab, 650 MG PO Q6H PRN for PAIN, (Reported) TAKE 2 (325MG) TABLETS NEEDED FOR PAIN Amitriptyline Hcl 25 Mg Tablet, 50 MG PO HS, (Reported) Cholecalciferol 1,000 Unit Capsule, 2 TAB PO DAILY, (Reported) Clopidogrel Bisulfate 75 Mg Tablet, 75 MG PO DAILY, (Reported) Dexlansoprazole 60 Mg Nadeem.bp, 60 MG PO DAILY, (Reported) Diclofenac Sodium 100 Gm Gel..gram., 4 GM TD Q4H PRN for PAIN-MILD, (Reported) Donepezil Hcl 10 Mg Tab.rapdis, 10 MG PO HS, (Reported) Ketorolac Tromethamine 5 Ml Drops, 1 DROP OU QID, (Reported) Lactobacillus Rhamnosus 1 Cap Capsule, 1 CAP PO DAILY, (Reported) Levofloxacin 500 Mg Tablet, 500 MG PO DAILY, #6 Ref 0 Prescribed by: CAITLIN ROTH on 11/27/16 0321 Loperamide HCl 2 Mg Tablet, 2 MG PO Q6H PRN for DIARRHEA, (Reported) Lorazepam 1 Mg Tab, 1 MG PO BID, (Reported) Lovastatin 20 Mg Tablet, 20 MG PO HS, (Reported) Melatonin 3 Mg Tablet, 2 TAB PO HS, (Reported) Metoprolol Tartrate 25 Mg Tablet, 12.5 MG PO BID, #60 Prescribed by: LIV PARSONS on 11/15/16 1052 Morphine Sulfate 30 Mg Tablet.er, 30 MG PO Q12H, (Reported) Morphine Sulfate 15 Mg Tablet, 15 MG PO Q6H PRN for PAIN-MODERATE, (Reported) Ondansetron HCl 4 Mg Tab, 4 MG PO Q6H PRN for NAUSEA/VOMITING-1ST LINE, ( Reported) Pregabalin 200 Mg Capsule, 200 MG PO TID, (Reported) Simethicone 80 Mg Tab.chew, 80 MG PO BID, (Reported) Sucralfate 1 Gm/10 Ml Oral.susp, 10 ML PO TID, (Reported) Vit B Cmplx 3/FA/Vit C/Biotin 1 Each Tablet, 1 EACH PO DAILY, (Reported) Physical Exam-Cardiology Physical Exam Vital Signs/I&O Vital Sign - Last 12Hours 12/05/16 12/05/16 12/05/16 12/05/16 00:00 00:00 00:00 01:00 Temp 97.9 Pulse 63 55 Resp 13 14 B/P (MAP) 157/64 138/51 Pulse Ox 96 95 95 O2 Delivery Nasal Cannula Nasal Cannula Nasal Cannula O2 Flow Rate 3.00 3.00 3.00 12/05/16 12/05/16 12/05/16 12/05/16 01:00 02:00 03:00 04:00 Pulse 55 57 52 58 Resp 13 11 10 B/P (MAP) 148/64 133/56 175/65 Pulse Ox 95 96 94 O2 Delivery Nasal Cannula Nasal Cannula Nasal Cannula O2 Flow Rate 3.00 3.00 3.00 12/05/16 12/05/16 12/05/16 12/05/16 04:00 05:00 06:00 07:00 Temp 98.1 Pulse 53 57 96 Resp 15 17 B/P (MAP) 150/54 153/68 132/49 Pulse Ox 95 97 99 97 O2 Delivery Nasal Cannula Nasal Cannula Nasal Cannula Nasal Cannula O2 Flow Rate 3.00 3.00 3.00 3.00 12/05/16 12/05/16 12/05/16 12/05/16 07:00 08:00 09:30 09:46 Temp 96.8 Pulse 52 94 Resp 20 B/P (MAP) 186/72 Pulse Ox 96 97 O2 Delivery Nasal Cannula Nasal Cannula Nasal Cannula O2 Flow Rate 3.00 3.00 3.00 12/05/16 10:22 O2 Delivery Nasal Cannula O2 Flow Rate 3.00 Intake and Output 12/04/16 23:59 Intake Total 555 ml Output Total 125 ml Balance 430 ml Capillary Refill : Less Than 3 Seconds Constitutional: No appears stated age, No AAO x 3, No apparent distress, No PERRL, No well-developed, No well-nourished, No other HEENT: No PERRL, No normal ENT inspection, No TMs normal, No pharynx normal, No scleral icterus (R), No scleral icterus (L), No pale conjunctivae (R), No pale conjunctivae (L), No photophobia, No TM abnormal (R), No TM abnormal (L), No pharyngeal erythema, No tonsillar exudate, No other, No discharge, No EOMI, No hearing is well preserved, No hard of hearing, No oral hygience is good, No ulceration, No xanthelasmas are seen Neck: No non-tender, No full range of motion, No supple, No normal inspection, No carotid bruit, No limited range of motion, No lymphadenopathy (R), No lymphadenopathy (L), No tender lateral, No tender midline, No thyromegaly, No other, No carotid pulses are 2 + bilaterally, No with good upstrokes Respiratory: No accessory muscle use, No respiratory distress, No chest tender , No chest expansion is symmetric, No chest is bilaterally symmetric, No lungs clear to percussion, No lungs clear to auscultation, No crackles, No rhonchi, No rales, No stridor, No wheezing, No pleural rub, No other Cardiovascular: regular rate-rhythm, S1 and S2 Gastrointestinal: No tender, No soft, No round, No distended, No pulsatile mass , No organomegaly, No guarding, No rebound, No tenderness, No hernia, No mass, No audible bowel sounds, No abnormal bowel sounds, No abdominal bruits, No spleenomegaly, No other Rectal: deferred Extremities: No normal range of motion, No non-tender, No normal inspection, No pedal edema, No calf tenderness, No normal capillary refill, No pelvis stable , No calf tenderness, No inflammation, No pedal edema, No slow capillary refill , No swelling, other (right AKA), No abrasion, No clubbing, No cyanosis, No ecchymosis, No laceration, No no lower extremity edema bilateral, No significant edema, No tenderness, No wound Neurologic/Psychiatric: No diesel engine specialist II-XII nml as tested, No no motor/sensory deficits, No alert, No normal mood/affect, No oriented x 3, No abnormal cerebellar tests, No abnormal diesel engine specialist II-XII, No abnormal gait, No aphasia, No EOM palsy, No facial droop, No motor weakness, No sensory deficit, No depressed affect, No disoriented x 3, No other, No grossly intact, No power is 5/5 both on sides Data Review Labs Laboratory Tests 12/04/16 14:40: White Blood Count 8.7, Red Blood Count 5.64, Hemoglobin 15.4, Hematocrit 49, Mean Corpuscular Volume 87, Mean Corpuscular Hemoglobin 27, Mean Corpuscular Hemoglobin Concent 31L, Red Cell Distribution Width 14.5, Platelet Count 156, Mean Platelet Volume 11.7H, Neutrophils (%) (Auto) 79H, Lymphocytes (%) (Auto) 14, Monocytes (%) (Auto) 6, Eosinophils (%) (Auto) 1, Basophils (%) (Auto) 0, Neutrophils # (Auto) 6.8, Lymphocytes # (Auto) 1.2, Monocytes # (Auto) 0.6, Eosinophils # (Auto) 0.0, Basophils # (Auto) 0.0, Sodium Level 145, Potassium Level 3.6, Chloride Level 97L, Carbon Dioxide Level 34H, Anion Gap 14, Blood Urea Nitrogen 17, Creatinine 1.05, Estimat Glomerular Filtration Rate 50, BUN/ Creatinine Ratio 16, Glucose Level 148H, Lactic Acid Level 1.44, Calcium Level 9.8, Magnesium Level 1.6L, Total Bilirubin 1.1H, Aspartate Amino Transf (AST/ SGOT) 22, Alanine Aminotransferase (ALT/SGPT) 11, Alkaline Phosphatase 95, Troponin I < 0.30, B-Type Natriuretic Peptide 1127.9H, Total Protein 7.4, Albumin 3.7 12/04/16 20:56: Troponin I < 0.30 12/05/16 04:09: White Blood Count 5.4, Red Blood Count 4.97, Hemoglobin 13.7, Hematocrit 44, Mean Corpuscular Volume 88, Mean Corpuscular Hemoglobin 28, Mean Corpuscular Hemoglobin Concent 31L, Red Cell Distribution Width 14.4, Platelet Count 143, Mean Platelet Volume 11.8H, Neutrophils (%) (Auto) 63, Lymphocytes (%) (Auto) 27 , Monocytes (%) (Auto) 7, Eosinophils (%) (Auto) 2, Basophils (%) (Auto) 0, Neutrophils # (Auto) 3.4, Lymphocytes # (Auto) 1.5, Monocytes # (Auto) 0.4, Eosinophils # (Auto) 0.1, Basophils # (Auto) 0.0, Sodium Level 147H, Potassium Level 3.1L, Chloride Level 99, Carbon Dioxide Level 35H, Anion Gap 13, Blood Urea Nitrogen 18, Creatinine 1.02, Estimat Glomerular Filtration Rate 51, BUN/ Creatinine Ratio 18, Glucose Level 104, Calcium Level 8.8, Magnesium Level 1.5L , Total Bilirubin 1.1H, Aspartate Amino Transf (AST/SGOT) 19, Alanine Aminotransferase (ALT/SGPT) 12, Alkaline Phosphatase 80, Total Protein 6.0L, Albumin 3.2, Phosphorus Level 2.7 ECG Impression ECG Initial ECG Impression: Atrial Fibrillation w/RVR Comment Currently telemetry shows sinus rhythm. A/P-Cardiology Assessment/Admission Diagnosis Atrial fibrillation with rapid ventricular rate, Coronary artery disease, Chronic kidney disease Plan Episode of atrial fibrillation with rapid ventricular rate. Converted on IV Cardizem. Cardizem changed to by mouth to 240 mg daily. She is on Plavix. Will have a discussion with the patient and family about the possibility of starting Eliquis or Xarelto. Recent history of non-STEMI: Troponin 2 is negative. Continue medical therapy. Recent acute kidney injury. Creatinine is much improved. It was likely that her history of present illness was secondary to significant dehydration. Thank you for your consultation. Please call me if you have any questions. Javier Galindo MD, FACP, FACC, FSCAI, FHRS, CCDS Interventional Cardiology Cardiac Electrophysiology Vascular Medicine and Endovascular Interventions Clinical Quality Measures AMI/AHF: ASA po Prior to arrival: No DVT/VTE Risk/Contraindication: Risk Factor Score Per Nursin RFS Level Per Nursing on Admit: 4+=Very High Carlin GALINDO MD Dec 05, 2016 10:26
[2016-12-05] MEDS ORDERED: ACETAMINOPHEN 500 MG TAB (TYLENOL) ONE (13:26)
[2016-12-05] MEDS ORDERED: ACETAMINOPHEN 500 MG TAB (TYLENOL) PO PRN (13:45)
[2016-12-05] MEDS ORDERED: LOVA20TA2 PO (14:04)
[2016-12-05] MEDS ORDERED: SUCR1TAB PO (14:04)
[2016-12-05] MEDS ORDERED: LORA1TAB PO (14:04)
[2016-12-05] MEDS ORDERED: AMIT50TA3 PO (14:04)
[2016-12-05] MEDS ORDERED: CLOP75TA28 PO (14:04)
[2016-12-05] MEDS ORDERED: PREG200C PO (14:04)
[2016-12-05] MEDS ORDERED: KETO5DRO14 OU (14:04)
[2016-12-05] MEDS ORDERED: TRIA15CR TP (14:04)
[2016-12-05] MEDS ORDERED: MORP-34 PO (14:04)
[2016-12-05] MEDS ORDERED: MORP-33 PO (14:04)
[2016-12-05] MEDS ORDERED: METO-333 PO (14:04)
[2016-12-05] MEDS ORDERED: VIT1TABL75 PO (14:04)
[2016-12-05] MEDS ORDERED: ONDA4TAB10 PO (14:04)
[2016-12-05] MEDS ORDERED: DONE10TA41 PO (14:04)
--- NOTE | 2016-12-05 15:12 | History & Physical-Hospitalist ---
HPI History of Present Illness: HPI/Chief Complaint The patient's an 86-year-old white female from the senior living. It is noted that she is 86 years old today. She presented to the emergency room with complaints of shortness of breath. She is rather vague about when this difficulty may have started. She was found to be in atrial fibrillation with rapid ventricular response. On a previous admission in October she apparently suffered a silent NC. She denies any chest pain at this time. She converted in short order to a sinus rhythm while on a Cardizem drip in the ICU and was transferred to the floor. Date Seen 12/05/16 Time Seen by Provider: 15:07 Attending Physician Gita Reynaga DO PCP Brennan Arguello DO Referring Physician Date of Admission Dec 04, 2016 at 15:41 Home Medications & Allergies Home Medications Reviewed patient Home Medication Reconciliation Form Allergies Allergies Coded Allergies latex (Verified Allergy, Mild, 11/12/16) Penicillins (Verified Allergy, Unknown, 11/12/16) cephalexin (Verified Allergy, Unknown, 11/12/16) codeine (Verified Allergy, Unknown, 11/12/16) povidone-iodine (Verified Allergy, Unknown, 11/12/16) soap (Verified Allergy, Unknown, 11/12/16) Past Spadojh-Bfgrtb-Bihfeb Hx Patient Social History Alcohol Use: Denies Use Recreational Drug Use: No Smoking Status: Never a Smoker Type Used: Cigarettes Physical Abuse Screen: No Sexual Abuse: No Recent Foreign Travel: No Contact w/other who traveled: No Recent Hopitalizations: No Recent Infectious Disease Expo: No Immunizations Up To Date Tetanus Booster (TDap): Unknown Date of Pneumonia Vaccine: Apr 17, 2009 Seasonal Allergies Seasonal Allergies: No Surgeries HX Surgeries: Yes Surgeries: Amputation, Gallbladder, Hysterectomy Respiratory Hx Respiratory Disorders: No Cardiovascular Hx Cardiovascular Disorders: No Neurological Hx Neurological Disorders: Yes Neurological Disorders: Neuropathy Reproductive System Hx Reproductive Disorders: No Sexually Transmitted Disease: No Genitourinary Hx Genitourinary Disorders: Yes (INCONTINENCE) Gastrointestinal Hx Gastrointestinal Disorders: Yes (DIVERTICULITIS, IBS, ) Gastrointestinal Disorders: Gastroesophageal Reflux, Chronic Constipation Musculoskeletal Hx Musculoskeletal Disorders: Yes Musculoskeletal Disorders: Amputee Endocrine Hx Endocrine Disorders: No HEENT HX ENT Disorders: Yes (difficulty swallowing pills) Cancer Cancer: Skin Psychosocial Hx Psychiatric Problems: Yes Behavioral Health Disorders: Sleep Difficulties, Anxiety, Depression Integumentary HX Skin/Integumentary Disorder: Yes (history of melanoma) Blood Transfusions Hx Blood Disorders: No Family Medical History Family Hx: Completed stroke 19 MOTHER Diabetes mellitus 19 MOTHER Myocardial infarction 19 MOTHER Review of Systems Constitutional: see HPI EENTM: no symptoms reported Respiratory: cough, short of breath Cardiovascular: palpitations Gastrointestinal: no symptoms reported Musculoskeletal: no symptoms reported Skin: no symptoms reported Psychiatric/Neurological: No Symptoms Reported Physical Exam Physical Exam Vital Signs Vital Sign - Last 12Hours 12/04/16 12/04/16 12/04/16 14:38 15:30 16:55 Temp 96.0 Pulse 147 Resp 20 B/P (MAP) 160/118 Pulse Ox 88 O2 Delivery Nasal Cannula O2 Flow Rate 3.00 Capillary Refill : Less Than 3 SecondsLess Than 3 Seconds General Appearance: Mild Distress Eyes: Bilateral Eye Normal Inspection HEENT: Normal ENT Inspection Neck: Normal Inspection Respiratory: Decreased Breath Sounds, Rales, Rhonci Cardiovascular: Regular Rate, Rhythm, No Edema, No Gallop Gastrointestinal: Normal Bowel Sounds, No Organomegaly, No Pulsatile Mass, Non Tender, Soft Extremity: Other (right AK amputation) Neurologic/Psychiatric: Alert Skin: Normal Color, Warm/Dry Lymphatic: No Adenopathy Results Results/Procedures Lab Laboratory Tests 12/04/16 14:40 12/05/16 04:09 Assessment/Plan Admission Diagnosis Atrial fibrillation with rapid ventricular response. 2.subacute STEMI Clinical Quality Measures AMI/AHF: ASA po Prior to arrival: No DVT/VTE Risk/Contraindication: Risk Factor Score Per Nursin RFS Level Per Nursing on Admit: 4+=Very High NIXON SCOTT MD Dec 05, 2016 15:12
[2016-12-05] MEDS ORDERED: DICLOFENAC 1% GEL 100 GM (VOLTAREN) TUBE TOP PRN (15:45)
[2016-12-05] MEDS ORDERED: morphine ER 30 MG (MS CONTIN) TAB PO SCH (15:45)
[2016-12-05] MEDS ORDERED: ACETAMINOPHEN 325 MG TABLET/CAPLET (TYLENOL) PO PRN (15:45)
[2016-12-05] MEDS ORDERED: TRIAMCINOLONE 0.5% CR (KENALOG) 15 GM TUBE TP PRN (15:45)
[2016-12-05] MEDS ORDERED: MORP15TA PO (16:19)
[2016-12-05] MEDS: MELATONIN 3 MG TABLET PO SCH (20:35)
[2016-12-05] MEDS: SUCRALFATE 1 GM (CARAFATE) TAB PO SCH (20:35)
[2016-12-05] MEDS: SIMETHICONE 80 MG (MYLICON) CHEW PO SCH (20:36)
[2016-12-05] MEDS: AMITRIPTYLINE 50 MG (ELAVIL) TAB PO SCH (20:36)
[2016-12-05] MEDS: meTOprolol TARTRATE 25 MG (LOPRESSOR) TABLET PO SCH (20:36)
[2016-12-05] MEDS: morphine IMMEDIATE RELEASE 15 MG TABLET PO PRN (20:36)
[2016-12-05] MEDS: DONEPEZIL 10 MG (ARICEPT) TAB PO SCH (20:36)
[2016-12-05] MEDS: LORazepam 1 MG (ATIVAN) TAB PO SCH (21:11)
[2016-12-06] VITALS: BP 149/80
[2016-12-06 04:00] VITALS: BP 168/74
[2016-12-06] MEDS: APIXABAN 5 MG (ELIQUIS) TABLET PO SCH ×2 (05:35→17:36)
[2016-12-06] MEDS: morphine ER 30 MG (MS CONTIN) TAB PO SCH ×3 (07:33→18:37)
[2016-12-06 08:00] VITALS: BP 164/72
[2016-12-06] MEDS: SUCRALFATE 1 GM (CARAFATE) TAB PO SCH ×3 (08:13→20:14)
[2016-12-06] MEDS: SIMETHICONE 80 MG (MYLICON) CHEW PO SCH ×2 (08:13→20:14)
[2016-12-06] MEDS: CLOPIDOGREL 75 MG (PLAVIX) TABLET PO SCH (08:13)
[2016-12-06] MEDS: meTOprolol TARTRATE 25 MG (LOPRESSOR) TABLET PO SCH ×2 (08:13→20:13)
[2016-12-06] MEDS: LORazepam 1 MG (ATIVAN) TAB PO SCH ×2 (08:13→20:13)
--- NOTE | 2016-12-06 11:37 | Physician Query Clarification ---
PQ-Further Specificity Admission/Discharge Admission Date: Dec 04, 2016 at 15:41 Discharge Date: The medical record reflects the following clinical scenario: History/Risk Factors: Atrial Flutter/Fibrillation Recent Non STEMI Clinical Findings: BNP 1127.9 Hypoxia 02 sats 78% at half-way improving to 88% on admission. Dr. Lucas's consult said that the chest xray and BNP is suggestive of CHF acute exacerbation. Treatment: 40 mg IV Lasix Question: Can you further specify [the acuity &/or type of CHF] per the clinical indicators above? Please document below. 1. Acuity: Acute, Chronic or Acute on Chronic 2. Type: Systolic, Diastolic or Systolic & Diastolic 3. Unspecified: CHF cannot be further specified regarding type or acuity 4. Other, with explanation of clinical findings 5. Clincally undetermined, no explanation for clinical findings PHYSICIAN RESPONSE Can you specify per above: Other, explanation/clinical finding Explanation/Clinical Findings The previous admission BNP was 405 on 11/12. The troponin liseth from 2.16 on that day to 18.5. Echocardiogram done on that date showed the left ventricular ejection fraction at [address] now shows evidence of congestive failure. The BNP of admission this time is 1128. A repeat echocardiogram would be required to assess ejection fraction as a function of the GA suffered on the previous visit. In addition atrial fibrillation with the rapid ventricular response would cause a decline in ejection fraction and cardiac output In responding to this query, please exercise your independent professional judgment. The purpose of this communication is to more accurately reflect the complexity of your patients condition. The fact that a question is asked does not imply that any particular answer is desired or expected. Thank you for your timely response to this clarification. Requestors name: Rachel Gee [facility] Phone # ext [phone] or [phone] THIS PHYSICIAN QUERY FORM IS A PERMANENT PART OF THE MEDICAL RECORD Assessment/Admission Diagnosis There is no significant evidence of pulmonary edema and CHF on cxr or CT scan. BNP is elevated and is noted. We will request another Echocardiogram. RACHEL GEE Dec 06, 2016 11:37 NIXON SCOTT MD Dec 06, 2016 12:30 Carlin GALINDO MD Dec 06, 2016 13:27
[2016-12-06 12:00] VITALS: BP 189/80
--- NOTE | 2016-12-06 12:35 | Progress Note-Hospitalist ---
Standard Progress Note Progress Notes/Assess & Plan Date Seen 12/06/16 Time Seen by Provider: 12:30 Diagnosis Atrial fibrillation with rapid ventricular response. 2.subacute STEMI Assess & Plan/Chief Complaint CT scan yesterday shows evidence of pleural effusion and likely congestive heart failure. As noted that the BNP on 11/12 was 405 and on admission this time was 1128. Echocardiogram on 11/12 showed LVEF at 70 percent. On that date her troponin liseth from 2.16-18.53. A repeat echocardiogram would be required to assess present ejection fraction. To this point in the hospital admission despite Lasix there is a net positive intake as compared to output. Today the patient appears rather grumpy and is rather reticent. Physical exam: She appears slightly dyspneic at rest. Lungs show shallow respirations. CV is irregular with a controlled rate. Impression: Atrial fibrillation with a rapid ventricular response now controlled. 2.congestive heart failure. Plan: Increase dose of Lasix Labs Laboratory Tests 12/04/16 14:40 12/05/16 04:09 NIXON SCOTT MD Dec 06, 2016 12:35
[2016-12-06] MEDS ORDERED: FUROSEMIDE 40 MG/4 ML INJ (LASIX) IVP NR (12:57)
[2016-12-06] MEDS: morphine IMMEDIATE RELEASE 15 MG TABLET PO PRN (13:20)
--- NOTE | 2016-12-06 13:23 | Cardiology Progress Note ---
Cardiology SOAP Progress Note Subjective: no cardiac complaints. Objective: I&O/Vital Signs Vital Sign - Last 12Hours 12/06/16 12/06/16 12/06/16 12/06/16 04:00 07:00 07:22 08:00 Temp 96.6 97.0 Pulse 82 72 75 Resp 18 16 B/P (MAP) 168/74 164/72 Pulse Ox 97 97 95 O2 Delivery Nasal Cannula Nasal Cannula Nasal Cannula O2 Flow Rate 3.00 3.00 3.00 12/06/16 08:00 O2 Delivery Nasal Cannula O2 Flow Rate 3.00 Intake and Output 12/06/16 00:00 Intake Total 960 ml Output Total 700 ml Balance 260 ml Weight (Pounds): 225 Weight (Ounces): 0.8 Weight (Calculated Kilograms): 102.490180 Constitutional: No appears stated age, No AAO x 3, No apparent distress, No PERRL, No well-developed, No well-nourished, No other Respiratory: No accessory muscle use, No respiratory distress, No chest tender , No chest expansion is symmetric, No chest is bilaterally symmetric, No lungs clear to percussion, No lungs clear to auscultation, No crackles, No rhonchi, No rales, No stridor, No wheezing, No pleural rub, No other Cardiovascular: irregularly irregular, S1 and S2 Gastrointestional: No tender, No soft, No round, No distended, No pulsatile mass, No organomegaly, No guarding, No rebound, No tenderness, No hernia, No mass, No audible bowel sounds, No abnormal bowel sounds, No abdominal bruits, No spleenomegaly, No other Extremities: No normal range of motion, No non-tender, No normal inspection, No pedal edema, No calf tenderness, No normal capillary refill, No pelvis stable , No calf tenderness, No inflammation, No pedal edema, No slow capillary refill , No swelling, other (right AKA), No abrasion, No clubbing, No cyanosis, No ecchymosis, No laceration, No no lower extremity edema bilateral, No significant edema, No tenderness, No wound Neurologic/Psychiatric: No gerentological physiotherapist II-XII nml as tested, No no motor/sensory deficits, No alert, No normal mood/affect, No oriented x 3, No abnormal cerebellar tests, No abnormal gerentological physiotherapist II-XII, No abnormal gait, No aphasia, No EOM palsy, No facial droop, No motor weakness, No sensory deficit, No depressed affect, No disoriented x 3, No other, No grossly intact, No power is 5/5 both on sides Results/Procedures: Labs Laboratory Tests 12/06/16 03:37: Glucometer 102 Microbiology 12/04/16 Blood Culture - Preliminary, Resulted No growth A/P: Assessment/Dx: Atrial fibrillation with rapid ventricular rate, Coronary artery disease, Chronic kidney disease Plan: Episode of atrial fibrillation with rapid ventricular rate. Converted on IV Cardizem. Cardizem changed to by mouth to 240 mg daily. She is on Plavix. She goes back and forth in SR and AF. will increase the dose of metoprolol. Increased BP noted. Recent history of non-STEMI: Troponin 2 is negative. Continue medical therapy. Elevated BNP - patient is not complaining of shortness of breath. CXR and CT chest shows no pulmonary edema. Will review with an Echocardiogram to assess LV function. Recent acute kidney injury. Creatinine is much improved. It was likely that her history of present illness was secondary to significant dehydration. Thank you for your consultation. Please call me if you have any questions. Javier Dutta MD, FACP, FACC, FSCAI, FHRS, CCDS Interventional Cardiology Cardiac Electrophysiology Vascular Medicine and Endovascular Interventions Clinical Quality Measures AMI/AHF: ASA po Prior to arrival: Carlin Higuera MD Dec 06, 2016 1:23 pm
--- NOTE | 2016-12-06 14:20 | Pulmonary Progress Note ---
Exam Exam Vital Signs Date Time Temp Pulse Resp B/P (MAP) Pulse Ox O2 Delivery O2 Flow Rate FiO2 12/06/16 12:00 97.1 83 24 189/80 95 Nasal Cannula 3.00 12/06/16 08:00 Nasal Cannula 3.00 12/06/16 08:00 97.0 75 16 164/72 95 Nasal Cannula 3.00 12/06/16 07:22 97 Nasal Cannula 3.00 12/06/16 07:00 72 12/06/16 04:00 96.6 82 18 168/74 97 Nasal Cannula 3.00 12/06/16 01:00 67 12/06/16 00:00 97.7 74 20 149/80 96 Nasal Cannula 3.00 12/05/16 20:00 Nasal Cannula 3.00 12/05/16 19:15 98.4 99 19 178/89 97 Nasal Cannula 3.00 12/05/16 19:00 101 12/05/16 15:45 98.2 103 21 200/89 94 Nasal Cannula 3.00 I & O 12/06/16 07:00 Intake Total 1520 ml Output Total 1075 ml Balance 445 ml General Appearance: No Apparent Distress, WD/WN HEENT: Normal ENT Inspection Neck: Normal Inspection Respiratory: Decreased Breath Sounds, Rales, Rhonci Cardiovascular: Regular Rate, Rhythm, No Edema, No Gallop Capillary Refill: Less Than 3 Seconds Gastrointestinal: normal bowel sounds, non tender, soft Extremity: Other (right AK amputation) Neurologic/Psychiatric: Alert Skin: Normal Color, Warm/Dry Lymphatic: No Adenopathy Results Lab Laboratory Tests 12/04/16 14:40 12/05/16 04:09 Assessment/Plan Assessment/Plan Afib RVR- now sinus CHFAE -hep lock IVF -lasix -cardiology following Dyspnea with elevated right diaphragm - CT with contrast r/o mass -- no lung masses indicated Atelectasis -increase activity, IS obesity 232 Clinical Quality Measures AMI/AHF: ASA po Prior to arrival: No DVT/VTE Risk/Contraindication: Risk Factor Score Per Nursin RFS Level Per Nursing on Admit: 4+=Very High MARY MADDEN DO Dec 06, 2016 14:20
[2016-12-06 15:25] VITALS: BP 160/83
[2016-12-06 19:40] VITALS: BP 146/65
[2016-12-06] MEDS: MELATONIN 3 MG TABLET PO SCH (20:13)
[2016-12-06] MEDS: DONEPEZIL 10 MG (ARICEPT) TAB PO SCH (20:14)
[2016-12-06] MEDS: AMITRIPTYLINE 50 MG (ELAVIL) TAB PO SCH (20:14)
[2016-12-07 00:19] VITALS: BP 129/63
[2016-12-07 04:10] VITALS: BP 159/76
[2016-12-07 05:30] LABS: CALCIUM 9.2 MG/DL (8.5-10.1); CREATININE SERUM 0.9 MG/DL (0.60-1.30); ICTERUS 0.7 (-100-1.9); POTASSIUM 2.9 MMOL/L (3.6-5.0)
[2016-12-07] MEDS: morphine ER 30 MG (MS CONTIN) TAB PO SCH (07:44)
[2016-12-07] MEDS: APIXABAN 5 MG (ELIQUIS) TABLET PO SCH (07:44)
[2016-12-07 08:00] VITALS: BP 163/82
[2016-12-07] MEDS: SUCRALFATE 1 GM (CARAFATE) TAB PO SCH (08:40)
[2016-12-07] MEDS: SIMETHICONE 80 MG (MYLICON) CHEW PO SCH (08:40)
[2016-12-07] MEDS: meTOprolol TARTRATE 25 MG (LOPRESSOR) TABLET PO SCH (08:41)
[2016-12-07] MEDS: LORazepam 1 MG (ATIVAN) TAB PO SCH (08:41)
[2016-12-07] MEDS: CLOPIDOGREL 75 MG (PLAVIX) TABLET PO SCH (08:41)
[2016-12-07] MEDS ORDERED: ONDANSETRON 4 MG/2 ML (SDV) Z0FRAN IVP PRN (08:45)
[2016-12-07] MEDS ORDERED: KCL 20 MEQ TAB (K-DUR) PO SCH (09:30)
[2016-12-07] MEDS ORDERED: FURO-124 PO (11:23)
[2016-12-07] MEDS ORDERED: POTA20TA15 PO (11:23)
--- NOTE | 2016-12-07 11:27 | Discharge Instructions ---
Discharge Instructions Discharge Medications New, Converted or Re-Newed RX: RX Given to Pt/Family Patient Instructions Goal/Follow Up Appt: Maintenance in care home If increasing edema or shortness of breath call Dr. Arguello for further instructions about diuretics. Repeat Chem-7 on Monday and call results to Dr. Arguello Patient Instructions: Medications as adjusted Activity & Diet Discharge Diet: No Restrictions Copy Copies To 1: PETRA ARGUELLO RODNEY K MD Dec 07, 2016 11:27
--- NOTE | 2016-12-07 11:42 | Progress Note-Hospitalist ---
Standard Progress Note Progress Notes/Assess & Plan Date Seen 12/07/16 Time Seen by Provider: 11:42 Diagnosis Atrial fibrillation with rapid ventricular response. 2.subacute STEMI Assess & Plan/Chief Complaint The patient Had a good diuresis yesterday. It is noted that her potassium is 2.9 today and replacement has been addressed. She reports that she feels nauseated today. This has been an intermittent complaint during her hospitalization. Physical exam: She appears less tachypneic today and breath sounds are armijo. CV remains irregular but rate is controlled. Impression: Improving dyspnea. Atrial fibrillation with rapid ventricular response now controlled. Plan: Return to [facility]. See medications and the activities on the discharge sequence Labs Laboratory Tests 12/07/16 04:20 NIXON SCOTT MD Dec 07, 2016 11:42
[2016-12-07 11:53] VITALS: BP 128/82
--- NOTE | 2016-12-07 13:34 | Cardiology Progress Note ---
Cardiology SOAP Progress Note Subjective: Feeling nauseous. No cardiac complaints. Objective: I&O/Vital Signs Vital Sign - Last 12Hours 12/07/16 12/07/16 12/07/16 12/07/16 06:43 07:00 08:00 08:00 Temp 96.4 Pulse 81 77 Resp 18 B/P (MAP) 163/82 Pulse Ox 97 O2 Delivery Nasal Cannula Nasal Cannula Nasal Cannula O2 Flow Rate 3.00 3.00 3.00 12/07/16 11:53 Temp 95.9 Pulse 71 Resp 20 B/P (MAP) 128/82 Pulse Ox 97 O2 Delivery Nasal Cannula O2 Flow Rate 3.00 Intake and Output 12/07/16 00:00 Intake Total 340 ml Output Total 2725 ml Balance -2385 ml Weight (Pounds): 219 Weight (Ounces): 0.8 Weight (Calculated Kilograms): 99.203782 Constitutional: No appears stated age, No AAO x 3, No apparent distress, No PERRL, No well-developed, No well-nourished, No other Respiratory: No accessory muscle use, No respiratory distress, No chest tender , No chest expansion is symmetric, No chest is bilaterally symmetric, No lungs clear to percussion, No lungs clear to auscultation, No crackles, No rhonchi, No rales, No stridor, No wheezing, No pleural rub, No other Cardiovascular: irregularly irregular, S1 and S2 Gastrointestional: No tender, No soft, No round, No distended, No pulsatile mass, No organomegaly, No guarding, No rebound, No tenderness, No hernia, No mass, No audible bowel sounds, No abnormal bowel sounds, No abdominal bruits, No spleenomegaly, No other Extremities: No normal range of motion, No non-tender, No normal inspection, No pedal edema, No calf tenderness, No normal capillary refill, No pelvis stable , No calf tenderness, No inflammation, No pedal edema, No slow capillary refill , No swelling, other (right AKA), No abrasion, No clubbing, No cyanosis, No ecchymosis, No laceration, No no lower extremity edema bilateral, No significant edema, No tenderness, No wound Neurologic/Psychiatric: No leg breaker II-XII nml as tested, No no motor/sensory deficits, No alert, No normal mood/affect, No oriented x 3, No abnormal cerebellar tests, No abnormal leg breaker II-XII, No abnormal gait, No aphasia, No EOM palsy, No facial droop, No motor weakness, No sensory deficit, No depressed affect, No disoriented x 3, No other, No grossly intact, No power is 5/5 both on sides Results/Procedures: Labs Laboratory Tests 12/07/16 04:20: Sodium Level 146H, Potassium Level 2.9L, Chloride Level 98, Carbon Dioxide Level 39H, Anion Gap 9, Blood Urea Nitrogen 18, Creatinine 0.90, Estimat Glomerular Filtration Rate 59, BUN/Creatinine Ratio 20, Glucose Level 99, Calcium Level 9.2 12/07/16 07:03: Glucometer 111H Microbiology 12/04/16 Blood Culture - Preliminary, Resulted No growth A/P: Assessment/Dx: Atrial fibrillation, recent non-STEMI, recent acute kidney injury. Plan: Episode of atrial fibrillation with rapid ventricular rate. Converted on IV Cardizem. Cardizem changed to by mouth to 240 mg daily. She is on Plavix. She goes back and forth in SR and AF. will increase the dose of metoprolol. Increased BP noted. Recent history of non-STEMI: Troponin 2 is negative. Continue medical therapy. Elevated BNP - patient is not complaining of shortness of breath. CXR and CT chest shows no pulmonary edema. Will review with an Echocardiogram to assess LV function. Recent acute kidney injury. Creatinine is much improved. It was likely that her history of present illness was secondary to significant dehydration. Thank you for your consultation. Please call me if you have any questions. Javier Dutta MD, FACP, FACC, FSCAI, FHRS, CCDS Interventional Cardiology Cardiac Electrophysiology Vascular Medicine and Endovascular Interventions Clinical Quality Measures AMI/AHF: ASA po Prior to arrival: Carlin Higuera MD Dec 07, 2016 13:34
--- OUTSIDE RECORDS SUMMARY | 2016-12-07 16:54 | XMS REPORT | Continuity of Care Document ---
Author Author [facility] Organization [facility] Address Unknown Phone Unavailable Allergies Active Description Code Type Severity Reaction Onset Reported/Identified Relationship to Patient Clinical Status Yes latex [id number] Drug Allergy Mild N/A 11/12/2016 Yes cephalexin [id number] Drug Allergy Unknown N/A 11/12/2016 Yes codeine [id number] Drug Allergy Unknown N/A 11/12/2016 Yes Penicillins [id number] Drug Allergy Unknown N/A 11/12/2016 Yes povidone-iodine [id number] Drug Allergy Unknown N/A 11/12/2016 Yes Soap [id number] Drug Allergy Unknown N/A 11/12/2016 Medications Problems Date Dx Coded Attending Type Code Diagnosis Diagnosed By 12/23/2010 Ot 276.51 DEHYDRATION 12/23/2010 Ot 294.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 12/23/2010 Ot 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 12/23/2010 Ot 300.00 ANXIETY STATE NOS 12/23/2010 Ot 327.23 OBSTRUCTIVE SLEEP APNEA (ADULT) (PEDIATR 12/23/2010 Ot 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 12/23/2010 Ot 356.9 IDIO PERIPH NEURPTHY NOS 12/23/2010 Ot 530.11 REFLUX ESOPHAGITIS 12/23/2010 Ot 530.81 ESOPHAGEAL REFLUX 12/23/2010 Ot 535.50 UNSP GASTRITIS GASTRODUODENITIS W/O ME 12/23/2010 Ot 536.2 PERSISTENT VOMITING 12/23/2010 Ot 553.3 DIAPHRAGMATIC HERNIA 12/23/2010 Ot 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 08/02/2011 Ot 780.2 SYNCOPE AND COLLAPSE 12/16/2013 AMBREEN MARIA MD Ot 531.90 STOMACH ULCER NOS 12/16/2013 AMBREEN MARIA MD Ot 535.50 UNSP GASTRITIS GASTRODUODENITIS W/O ME 12/16/2013 AMBREEN MARIA MD Ot 553.3 DIAPHRAGMATIC HERNIA 09/18/2014 HERBERT CARUSO ADMINISTRATIVE AIDE Ot V76.12 10/03/2014 HERBERT CARUSO ADMINISTRATIVE AIDE Ot V76.12 10/23/2014 HERBERT CARUSO ADMINISTRATIVE AIDE Ot V76.12 11/24/2014 DAVID CARUSOIA Radha ADMINISTRATIVE AIDE Ot 569.89 11/24/2014 HERBERT CARUSO ADMINISTRATIVE AIDE Ot 787.3 11/24/2014 HERBERT CARUSO ADMINISTRATIVE AIDE Ot 789.00 03/03/2015 PETRA CARUSO DO Ot 793.80 03/16/2015 PETRA CARUSO DO Ot 793.80 06/30/2015 Ot 787.03 06/30/2015 HERBERT CARUSOP Ot V76.12 06/30/2015 PETRA CARUSO DO Ot 793.80 08/12/2015 PETRA CARUSO DO Ot M54.10 08/19/2015 PETRA CARUSO DO Ot M54.10 11/12/2016 Ot V76.12 OTH SCREEN MAMMO-MALIGN NEOPLASM OF CHEMA 11/12/2016 Ot 698.9 PRURITIC DISORDER NOS 11/12/2016 Ot 789.00 ABDOMINAL PAIN, UNSPECIFIED SITE 11/12/2016 HERBERT CARUSO ADMINISTRATIVE AIDE Ot 569.89 INTESTINAL DISORDERS NEC 11/12/2016 HERBERT CARUSO ADMINISTRATIVE AIDE Ot 787.3 FLATUL/ERUCTAT/GAS PAIN 11/12/2016 HERBERT CARUSO ADMINISTRATIVE AIDE Ot 789.00 ABDOMINAL PAIN, UNSPECIFIED SITE 11/12/2016 PETRA CARUSO DO Ot 530.5 DYSKINESIA OF ESOPHAGUS 11/12/2016 PETRA CARUSO DO Ot 553.3 DIAPHRAGMATIC HERNIA 11/12/2016 PETRA CARUSO DO Ot 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 11/12/2016 PETRA CARUSO DO Ot 783.21 LOSS OF WEIGHT 11/12/2016 PETRA CARUSO DO Ot 787.01 NAUSEA WITH VOMITING 11/12/2016 PETRA CARUSO DO Ot 733.00 OSTEOPOROSIS NOS 11/12/2016 CROW BELTRAN, AMBREEN Gillis Ot V72.84 EXAM PRE-OPERATIVE NOS 11/12/2016 Ot 787.03 VOMITING ALONE 11/12/2016 SHADY HERBERT Radha GENEVA Ot V76.12 OTH SCREEN MAMMO-MALIGN NEOPLASM OF CHEMA 11/12/2016 PETRA CARUSO DO Ot 793.80 UNSPEC ABNORMAL MAMMOGRAM 11/12/2016 PETRA CARUSO DO Ot M54.10 RADICULOPATHY, SITE UNSPECIFIED 11/15/2016 SONNY SALTER DO Ot B95.4 OTH STREPTOCOCCUS THE CAUSE OF DISEAS 11/15/2016 SONNY SALTER DO Ot 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 11/15/2016 SONNY SALTER DO Ot G62.9 POLYNEUROPATHY, UNSPECIFIED 11/15/2016 SONNY SALTER DO Ot I21.4 NON-ST ELEVATION (NSTEMI) MYOCARDIAL INF 11/15/2016 SONNY SALTER DO Ot I50.31 ACUTE DIASTOLIC (CONGESTIVE) HEART FAILU 11/15/2016 SONNY SALTER DO Ot J18.9 PNEUMONIA, UNSPECIFIED ORGANISM 11/15/2016 SONNY SALTER DO Ot 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 11/15/2016 SONNY SALTER DO Ot N17.9 ACUTE KIDNEY FAILURE, UNSPECIFIED 11/15/2016 SONNY SALTER DO Ot N18.9 CHRONIC KIDNEY DISEASE, UNSPECIFIED 11/15/2016 SONNY SALTER DO Ot N39.0 URINARY TRACT INFECTION, SITE NOT SPECIF 11/15/2016 SONNY SALTER DO Ot R09.02 HYPOXEMIA 11/15/2016 SONNY SALTER DO Ot R32 UNSPECIFIED URINARY INCONTINENCE 11/15/2016 SONNY SALTER DO Ot Z66 DO NOT RESUSCITATE 11/15/2016 SONNY SALTER DO Ot 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 11/15/2016 SONNY SALTER DO Ot Z87.891 PERSONAL HISTORY OF NICOTINE DEPENDENCE 11/15/2016 SONNY SALTER DO Ot 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 11/21/2016 SONNY SALTER DO Ot B95.4 OTH STREPTOCOCCUS THE CAUSE OF DISEAS 11/21/2016 SONNY SALTER DO Ot 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 11/21/2016 SALTERRANDELL HICKEY SONNY Ot G62.9 POLYNEUROPATHY, UNSPECIFIED 11/21/2016 SALTERRANDELL HICKEY SONNY Ot I21.4 NON-ST ELEVATION (NSTEMI) MYOCARDIAL INF 11/21/2016 SALTERRANDELL HICKEY SONNY Ot I50.31 ACUTE DIASTOLIC (CONGESTIVE) HEART FAILU 11/21/2016 SALTERRANDELL HICKEY SONNY Ot J18.9 PNEUMONIA, UNSPECIFIED ORGANISM 11/21/2016 SALTERRANDELL HICKEY SONNY Ot 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 11/21/2016 SALTER DO SONNY Ot N17.9 ACUTE KIDNEY FAILURE, UNSPECIFIED 11/21/2016 SALTER DO SONNY Ot N18.9 CHRONIC KIDNEY DISEASE, UNSPECIFIED 11/21/2016 JOIE HICKEY SONNY Ot N39.0 URINARY TRACT INFECTION, SITE NOT SPECIF 11/21/2016 SIMONE SALTER DOI Ot R09.02 HYPOXEMIA 11/21/2016 JOIE HICKEY SONNY Ot R32 UNSPECIFIED URINARY INCONTINENCE 11/21/2016 JOIE HICKEY SONNY Ot Z66 DO NOT RESUSCITATE 11/21/2016 JOIE HICKEY SONNY Ot 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 11/21/2016 JOIE HICKEY SONNY Ot Z87.891 PERSONAL HISTORY OF NICOTINE DEPENDENCE 11/21/2016 JOIE HICKEY SONNY Ot 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 Procedures Code Description Performed By Performed On 45.16 ESOPHAGOGASTRODUODENOSCOPY [EGD] W/CLOSE 12/20/2010 Results Test Result Range Complete blood count (CBC) with automated white blood cell (WBC) differential - 11/12/16 08:00 Blood leukocytes automated count (number/volume) 9.9 10*3/ uL 4.3-11.0 Blood erythrocytes automated count (number/volume) 5.52 10*6 /uL 4.35-5.85 Venous blood hemoglobin measurement (mass/volume) 15.5 g/dL 11.5-16.0 Blood hematocrit (volume fraction) 50 % 35-52 Automated erythrocyte mean corpuscular volume 90 [foz_us] 80-99 Automated erythrocyte mean corpuscular hemoglobin (mass per erythrocyte) 28 pg 25-34 Automated erythrocyte mean corpuscular hemoglobin concentration measurement ( mass/volume) 31 g/dL 32-36 Automated erythrocyte distribution width ratio 15.1 % 10.0-14.5 Automated blood platelet count (count/volume) 153 10*3/uL 130-400 Automated blood platelet mean volume measurement 10.7 [foz_ us] 7.4-10.4 Automated blood neutrophils/100 leukocytes 87 % 42-75 Automated blood lymphocytes/100 leukocytes 7 % 12-44 Blood monocytes/100 leukocytes 6 % 0-12 Automated blood eosinophils/100 leukocytes 0 % 0-10 Automated blood basophils/100 leukocytes 0 % 0-10 Blood neutrophils automated count (number/volume) 8.5 10*3 1.8-7.8 Blood lymphocytes automated count (number/volume) 0.7 10*3 1.0-4.0 Blood monocytes automated count (number/volume) 0.6 10*3 0.0-1.0 Automated eosinophil count 0.0 10*3/uL 0.0-0.3 Automated blood basophil count (count/volume) 0.0 10*3/uL 0.0-0.1 Comprehensive metabolic panel - 11/12/16 08:00 Serum or plasma sodium measurement (moles/volume) 144 mmol/ L 135-145 Serum or plasma potassium measurement (moles/volume) 4.1 mmol/L 3.6-5.0 Serum or plasma chloride measurement (moles/volume) 102 mmol /L 98-107 Carbon dioxide 28 mmol/L 21-32 Serum or plasma anion gap determination (moles/volume) 14 mmol/L 5-14 Serum or plasma urea nitrogen measurement (mass/volume) 14 mg/dL 7-18 Serum or plasma creatinine measurement (mass/volume) 1.44 mg /dL 0.60-1.30 Serum or plasma urea nitrogen/creatinine mass ratio 10 NRG Serum or plasma creatinine measurement with calculation of estimated glomerular filtration rate 34 NRG Serum or plasma glucose measurement (mass/volume) 134 mg/dL 70-105 Serum or plasma calcium measurement (mass/volume) 8.9 mg/dL 8.5-10.1 Serum or plasma total bilirubin measurement (mass/volume) 0.8 mg/dL 0.1-1.0 Serum or plasma alkaline phosphatase measurement (enzymatic activity/volume) 100 U/L 40-136 Serum or plasma aspartate aminotransferase measurement (enzymatic activity/ volume) 42 U/L 5-34 Serum or plasma alanine aminotransferase measurement (enzymatic activity/volume ) 16 U/L 0-55 Serum or plasma protein measurement (mass/volume) 6.5 g/dL 6.4-8.2 Serum or plasma albumin measurement (mass/volume) 3.4 g/dL 3.2-4.5 Blood manual differential performed detection - 11/12/16 08:00 Blood monocytes/100 leukocytes 4 % NRG Manual blood segmented neutrophils/100 leukocytes 88 % NRG Manual blood lymphocytes/100 leukocytes 8 % NRG Blood erythrocyte morphology finding identification NORMAL NRG Serum or plasma troponin i.cardiac measurement (mass/volume) - 11/12/16 08:00 Serum or plasma troponin i.cardiac measurement (mass/volume) 2.16 ng/mL <0.30 Valproic acid - 11/12/16 08:00 Valproic acid < ug/mL 50.0-100.0 Serum or plasma troponin i.cardiac measurement (mass/volume) - 11/12/16 14:21 Serum or plasma troponin i.cardiac measurement (mass/volume) 18.53 ng/mL <0.30 Serum or plasma lithium measurement (moles/volume) - 11/12/16 14:21 BNP level 405.5 pg/mL <100.0 Complete urinalysis with reflex to culture - 11/12/16 14:48 Urine color determination YELLOW NRG Urine clarity determination SLIGHTLY CLOUDY NRG Urine pH measurement by test strip 6 5- 9 Specific gravity of urine by test strip 1.020 1.016-1.022 Urine protein assay by test strip, semi-quantitative 2+ NEGATIVE Urine glucose detection by automated test strip NEGATIVE NEGATIVE Erythrocytes detection in urine sediment by light microscopy 2+ NEGATIVE Urine ketones detection by automated test strip NEGATIVE NEGATIVE Urine nitrite detection by test strip NEGATIVE NEGATIVE Urine total bilirubin detection by test strip 1+ NEGATIVE Urine urobilinogen measurement by automated test strip (mass/volume) 1 mg/dL NORMAL Urine leukocyte esterase detection by dipstick 1+ NEGATIVE Automated urine sediment erythrocyte count by microscopy (number/high power field) [HPF] NRG Automated urine sediment leukocyte count by microscopy (number/high power field ) [HPF] NRG Bacteria detection in urine sediment by light microscopy FEW NRG Squamous epithelial cells detection in urine sediment by light microscopy 10-25 NRG Crystals detection in urine sediment by light microscopy NONE NRG Casts detection in urine sediment by light microscopy PRESENT NRG Mucus detection in urine sediment by light microscopy MODERATE NRG Complete urinalysis with reflex to culture YES NRG Granular casts detection in urine sediment by light microscopy 10-25 NRG Bacterial urine culture - 11/12/16 14:48 Bacterial urine culture [id number] NRG COLONY COUNT 10,000/ML - 100,000/ML NRG Complete blood count (CBC) with automated white blood cell (WBC) differential - 11/13/16 05:07 Blood leukocytes automated count (number/volume) 6.9 10*3/ uL 4.3-11.0 Blood erythrocytes automated count (number/volume) 5.01 10*6 /uL 4.35-5.85 Venous blood hemoglobin measurement (mass/volume) 13.9 g/dL 11.5-16.0 Blood hematocrit (volume fraction) 46 % 35-52 Automated erythrocyte mean corpuscular volume 91 [foz_us] 80-99 Automated erythrocyte mean corpuscular hemoglobin (mass per erythrocyte) 28 pg 25-34 Automated erythrocyte mean corpuscular hemoglobin concentration measurement ( mass/volume) 31 g/dL 32-36 Automated erythrocyte distribution width ratio 15.3 % 10.0-14.5 Automated blood platelet count (count/volume) 134 10*3/uL 130-400 Automated blood platelet mean volume measurement 10.9 [foz_ us] 7.4-10.4 Automated blood neutrophils/100 leukocytes 64 % 42-75 Automated blood lymphocytes/100 leukocytes 26 % 12-44 Blood monocytes/100 leukocytes 8 % 0-12 Automated blood eosinophils/100 leukocytes 1 % 0-10 Automated blood basophils/100 leukocytes 0 % 0-10 Blood neutrophils automated count (number/volume) 4.5 10*3 1.8-7.8 Blood lymphocytes automated count (number/volume) 1.8 10*3 1.0-4.0 Blood monocytes automated count (number/volume) 0.6 10*3 0.0-1.0 Automated eosinophil count 0.1 10*3/uL 0.0-0.3 Automated blood basophil count (count/volume) 0.0 10*3/uL 0.0-0.1 Comprehensive metabolic panel - 11/13/16 05:07 Serum or plasma sodium measurement (moles/volume) 143 mmol/ L 135-145 Serum or plasma potassium measurement (moles/volume) 4.0 mmol/L 3.6-5.0 Serum or plasma chloride measurement (moles/volume) 103 mmol /L 98-107 Carbon dioxide 31 mmol/L 21-32 Serum or plasma anion gap determination (moles/volume) 9 mmol/L 5-14 Serum or plasma urea nitrogen measurement (mass/volume) 22 mg/dL 7-18 Serum or plasma creatinine measurement (mass/volume) 2.25 mg /dL 0.60-1.30 Serum or plasma urea nitrogen/creatinine mass ratio 10 NRG Serum or plasma creatinine measurement with calculation of estimated glomerular filtration rate 21 NRG Serum or plasma glucose measurement (mass/volume) 108 mg/dL 70-105 Serum or plasma calcium measurement (mass/volume) 8.6 mg/dL 8.5-10.1 Serum or plasma total bilirubin measurement (mass/volume) 0.8 mg/dL 0.1-1.0 Serum or plasma alkaline phosphatase measurement (enzymatic activity/volume) 83 U/L 40-136 Serum or plasma aspartate aminotransferase measurement (enzymatic activity/ volume) 76 U/L 5-34 Serum or plasma alanine aminotransferase measurement (enzymatic activity/volume ) 20 U/L 0-55 Serum or plasma protein measurement (mass/volume) 5.6 g/dL 6.4-8.2 Serum or plasma albumin measurement (mass/volume) 2.9 g/dL 3.2-4.5 Complete blood count (CBC) with automated white blood cell (WBC) differential - 11/14/16 04:41 Blood leukocytes automated count (number/volume) 7.5 10*3/ uL 4.3-11.0 Blood erythrocytes automated count (number/volume) 5.00 10*6 /uL 4.35-5.85 Venous blood hemoglobin measurement (mass/volume) 13.9 g/dL 11.5-16.0 Blood hematocrit (volume fraction) 45 % 35-52 Automated erythrocyte mean corpuscular volume 91 [foz_us] 80-99 Automated erythrocyte mean corpuscular hemoglobin (mass per erythrocyte) 28 pg 25-34 Automated erythrocyte mean corpuscular hemoglobin concentration measurement ( mass/volume) 31 g/dL 32-36 Automated erythrocyte distribution width ratio 15.0 % 10.0-14.5 Automated blood platelet count (count/volume) 131 10*3/uL 130-400 Automated blood platelet mean volume measurement 10.7 [foz_ us] 7.4-10.4 Automated blood neutrophils/100 leukocytes 72 % 42-75 Automated blood lymphocytes/100 leukocytes 19 % 12-44 Blood monocytes/100 leukocytes 8 % 0-12 Automated blood eosinophils/100 leukocytes 1 % 0-10 Automated blood basophils/100 leukocytes 0 % 0-10 Blood neutrophils automated count (number/volume) 5.4 10*3 1.8-7.8 Blood lymphocytes automated count (number/volume) 1.4 10*3 1.0-4.0 Blood monocytes automated count (number/volume) 0.6 10*3 0.0-1.0 Automated eosinophil count 0.1 10*3/uL 0.0-0.3 Automated blood basophil count (count/volume) 0.0 10*3/uL 0.0-0.1 Comprehensive metabolic panel - 11/14/16 04:41 Serum or plasma sodium measurement (moles/volume) 143 mmol/ L 135-145 Serum or plasma potassium measurement (moles/volume) 4.2 mmol/L 3.6-5.0 Serum or plasma chloride measurement (moles/volume) 104 mmol /L 98-107 Carbon dioxide 31 mmol/L 21-32 Serum or plasma anion gap determination (moles/volume) 8 mmol/L 5-14 Serum or plasma urea nitrogen measurement (mass/volume) 24 mg/dL 7-18 Serum or plasma creatinine measurement (mass/volume) 1.70 mg /dL 0.60-1.30 Serum or plasma urea nitrogen/creatinine mass ratio 14 NRG Serum or plasma creatinine measurement with calculation of estimated glomerular filtration rate 28 NRG Serum or plasma glucose measurement (mass/volume) 112 mg/dL 70-105 Serum or plasma calcium measurement (mass/volume) 8.6 mg/dL 8.5-10.1 Serum or plasma total bilirubin measurement (mass/volume) 0.6 mg/dL 0.1-1.0 Serum or plasma alkaline phosphatase measurement (enzymatic activity/volume) 82 U/L 40-136 Serum or plasma aspartate aminotransferase measurement (enzymatic activity/ volume) 38 U/L 5-34 Serum or plasma alanine aminotransferase measurement (enzymatic activity/volume ) 17 U/L 0-55 Serum or plasma protein measurement (mass/volume) 5.8 g/dL 6.4-8.2 Serum or plasma albumin measurement (mass/volume) 3.0 g/dL 3.2-4.5 Complete blood count (CBC) with automated white blood cell (WBC) differential - 11/27/16 00:27 Blood leukocytes automated count (number/volume) 8.4 10*3/ uL 4.3-11.0 Blood erythrocytes automated count (number/volume) 5.38 10*6 /uL 4.35-5.85 Venous blood hemoglobin measurement (mass/volume) 14.8 g/dL 11.5-16.0 Blood hematocrit (volume fraction) 49 % 35-52 Automated erythrocyte mean corpuscular volume 90 [foz_us] 80-99 Automated erythrocyte mean corpuscular hemoglobin (mass per erythrocyte) 28 pg 25-34 Automated erythrocyte mean corpuscular hemoglobin concentration measurement ( mass/volume) 31 g/dL 32-36 Automated erythrocyte distribution width ratio 14.2 % 10.0-14.5 Automated blood platelet count (count/volume) 174 10*3/uL 130-400 Automated blood platelet mean volume measurement 10.5 [foz_ us] 7.4-10.4 Automated blood neutrophils/100 leukocytes 86 % 42-75 Automated blood lymphocytes/100 leukocytes 9 % 12-44 Blood monocytes/100 leukocytes 5 % 0-12 Automated blood eosinophils/100 leukocytes 0 % 0-10 Automated blood basophils/100 leukocytes 0 % 0-10 Blood neutrophils automated count (number/volume) 7.5 10*3 1.8-7.8 Blood lymphocytes automated count (number/volume) 0.7 10*3 1.0-4.0 Blood monocytes automated count (number/volume) 0.3 10*3 0.0-1.0 Automated eosinophil count 0.0 10*3/uL 0.0-0.3 Automated blood basophil count (count/volume) 0.0 10*3/uL 0.0-0.1 PT panel in platelet poor plasma by coagulation assay - 11/27/16 00:27 Prothrombin time (PT) in platelet poor plasma by coagulation assay 13.2 s 12.2-14.7 INR in platelet poor plasma or blood by coagulation assay 1.0 0.8-1.4 Activated partial thromboplastin time (aPTT) in platelet poor plasma bycoagulation assay - 11/27/16 00:27 Activated partial thromboplastin time (aPTT) in platelet poor plasma bycoagulation assay 30 s 24-35 Blood lactic acid measurement (moles/volume) - 11/27/16 00:27 Blood lactic acid measurement (moles/volume) 1.87 mmol/L 0.50-2.00 Comprehensive metabolic panel - 11/27/16 00:27 Serum or plasma sodium measurement (moles/volume) 147 mmol/ L 135-145 Serum or plasma potassium measurement (moles/volume) 3.9 mmol/L 3.6-5.0 Serum or plasma chloride measurement (moles/volume) 96 mmol/ L 98-107 Carbon dioxide 35 mmol/L 21-32 Serum or plasma anion gap determination (moles/volume) 16 mmol/L 5-14 Serum or plasma urea nitrogen measurement (mass/volume) 13 mg/dL 7-18 Serum or plasma creatinine measurement (mass/volume) 1.18 mg /dL 0.60-1.30 Serum or plasma urea nitrogen/creatinine mass ratio 11 NRG Serum or plasma creatinine measurement with calculation of estimated glomerular filtration rate 43 NRG Serum or plasma glucose measurement (mass/volume) 174 mg/dL 70-105 Serum or plasma calcium measurement (mass/volume) 9.3 mg/dL 8.5-10.1 Serum or plasma total bilirubin measurement (mass/volume) 0.7 mg/dL 0.1-1.0 Serum or plasma alkaline phosphatase measurement (enzymatic activity/volume) 84 U/L 40-136 Serum or plasma aspartate aminotransferase measurement (enzymatic activity/ volume) 25 U/L 5-34 Serum or plasma alanine aminotransferase measurement (enzymatic activity/volume ) 15 U/L 0-55 Serum or plasma protein measurement (mass/volume) 7.0 g/dL 6.4-8.2 Serum or plasma albumin measurement (mass/volume) 3.5 g/dL 3.2-4.5 Serum or plasma troponin i.cardiac measurement (mass/volume) - 11/27/16 00:27 Serum or plasma troponin i.cardiac measurement (mass/volume) < ng/mL <0.30 Bacterial blood culture - 11/27/16 00:27 Bacterial blood culture NG NRG Bacterial blood culture - 11/27/16 00:55 Bacterial blood culture NG NRG Complete urinalysis with reflex to culture - 11/27/16 01:45 Urine color determination DARK YELLOW NRG Urine clarity determination SLIGHTLY CLOUDY NRG Urine pH measurement by test strip 5 5- 9 Specific gravity of urine by test strip 1.025 1.016-1.022 Urine protein assay by test strip, semi-quantitative 2+ NEGATIVE Urine glucose detection by automated test strip 1+ NEGATIVE Erythrocytes detection in urine sediment by light microscopy 2+ NEGATIVE Urine ketones detection by automated test strip NEGATIVE NEGATIVE Urine nitrite detection by test strip NEGATIVE NEGATIVE Urine total bilirubin detection by test strip 1+ NEGATIVE Urine urobilinogen measurement by automated test strip (mass/volume) 4 mg/dL NORMAL Urine leukocyte esterase detection by dipstick 1+ NEGATIVE Automated urine sediment erythrocyte count by microscopy (number/high power field) [HPF] NRG Automated urine sediment leukocyte count by microscopy (number/high power field ) [HPF] NRG Bacteria detection in urine sediment by light microscopy FEW NRG Squamous epithelial cells detection in urine sediment by light microscopy 2-5 NRG Crystals detection in urine sediment by light microscopy NONE NRG Casts detection in urine sediment by light microscopy PRESENT NRG Mucus detection in urine sediment by light microscopy LARGE NRG Complete urinalysis with reflex to culture YES NRG Hyaline casts detection in urine sediment by light microscopy 2-5 NRG Bacterial urine culture - 11/27/16 01:45 URINE CULTURE RESULTS <10,000/ML NRG Complete blood count (CBC) with automated white blood cell (WBC) differential - 12/04/16 14:40 Blood leukocytes automated count (number/volume) 8.7 10*3/ uL 4.3-11.0 Blood erythrocytes automated count (number/volume) 5.64 10*6 /uL 4.35-5.85 Venous blood hemoglobin measurement (mass/volume) 15.4 g/dL 11.5-16.0 Blood hematocrit (volume fraction) 49 % 35-52 Automated erythrocyte mean corpuscular volume 87 [foz_us] 80-99 Automated erythrocyte mean corpuscular hemoglobin (mass per erythrocyte) 27 pg 25-34 Automated erythrocyte mean corpuscular hemoglobin concentration measurement ( mass/volume) 31 g/dL 32-36 Automated erythrocyte distribution width ratio 14.5 % 10.0-14.5 Automated blood platelet count (count/volume) 156 10*3/uL 130-400 Automated blood platelet mean volume measurement 11.7 [foz_ us] 7.4-10.4 Automated blood neutrophils/100 leukocytes 79 % 42-75 Automated blood lymphocytes/100 leukocytes 14 % 12-44 Blood monocytes/100 leukocytes 6 % 0-12 Automated blood eosinophils/100 leukocytes 1 % 0-10 Automated blood basophils/100 leukocytes 0 % 0-10 Blood neutrophils automated count (number/volume) 6.8 10*3 1.8-7.8 Blood lymphocytes automated count (number/volume) 1.2 10*3 1.0-4.0 Blood monocytes automated count (number/volume) 0.6 10*3 0.0-1.0 Automated eosinophil count 0.0 10*3/uL 0.0-0.3 Automated blood basophil count (count/volume) 0.0 10*3/uL 0.0-0.1 Blood lactic acid measurement (moles/volume) - 12/04/16 14:40 Blood lactic acid measurement (moles/volume) 1.44 mmol/L 0.50-2.00 Comprehensive metabolic panel - 12/04/16 14:40 Serum or plasma sodium measurement (moles/volume) 145 mmol/ L 135-145 Serum or plasma potassium measurement (moles/volume) 3.6 mmol/L 3.6-5.0 Serum or plasma chloride measurement (moles/volume) 97 mmol/ L 98-107 Carbon dioxide 34 mmol/L 21-32 Serum or plasma anion gap determination (moles/volume) 14 mmol/L 5-14 Serum or plasma urea nitrogen measurement (mass/volume) 17 mg/dL 7-18 Serum or plasma creatinine measurement (mass/volume) 1.05 mg /dL 0.60-1.30 Serum or plasma urea nitrogen/creatinine mass ratio 16 0-20 Serum or plasma creatinine measurement with calculation of estimated glomerular filtration rate 50 NRG Serum or plasma glucose measurement (mass/volume) 148 mg/dL 70-105 Serum or plasma calcium measurement (mass/volume) 9.8 mg/dL 8.5-10.1 Serum or plasma total bilirubin measurement (mass/volume) 1.1 mg/dL 0.1-1.0 Serum or plasma alkaline phosphatase measurement (enzymatic activity/volume) 95 U/L 40-136 Serum or plasma aspartate aminotransferase measurement (enzymatic activity/ volume) 22 U/L 5-34 Serum or plasma alanine aminotransferase measurement (enzymatic activity/volume ) 11 U/L 0-55 Serum or plasma protein measurement (mass/volume) 7.4 g/dL 6.4-8.2 Serum or plasma albumin measurement (mass/volume) 3.7 g/dL 3.2-4.5 Serum or plasma troponin i.cardiac measurement (mass/volume) - 12/04/16 14:40 Serum or plasma troponin i.cardiac measurement (mass/volume) < ng/mL <0.30 Magnesium - 12/04/16 14:40 Magnesium 1.6 mg/dL 1.8-2.4 Serum or plasma troponin i.cardiac measurement (mass/volume) - 12/04/16 14:40 Serum or plasma troponin i.cardiac measurement (mass/volume) < ng/mL <0.30 Serum or plasma lithium measurement (moles/volume) - 12/04/16 14:40 BNP level 1127.9 pg/mL <100.0 Bacterial blood culture - 12/04/16 14:40 Bacterial blood culture NG NRG Bacterial blood culture - 12/04/16 15:08 Bacterial blood culture NG NRG Serum or plasma troponin i.cardiac measurement (mass/volume) - 12/04/16 20:56 Serum or plasma troponin i.cardiac measurement (mass/volume) < ng/mL <0.30 Complete blood count (CBC) with automated white blood cell (WBC) differential - 12/05/16 04:09 Blood leukocytes automated count (number/volume) 5.4 10*3/ uL 4.3-11.0 Blood erythrocytes automated count (number/volume) 4.97 10*6 /uL 4.35-5.85 Venous blood hemoglobin measurement (mass/volume) 13.7 g/dL 11.5-16.0 Blood hematocrit (volume fraction) 44 % 35-52 Automated erythrocyte mean corpuscular volume 88 [foz_us] 80-99 Automated erythrocyte mean corpuscular hemoglobin (mass per erythrocyte) 28 pg 25-34 Automated erythrocyte mean corpuscular hemoglobin concentration measurement ( mass/volume) 31 g/dL 32-36 Automated erythrocyte distribution width ratio 14.4 % 10.0-14.5 Automated blood platelet count (count/volume) 143 10*3/uL 130-400 Automated blood platelet mean volume measurement 11.8 [foz_ us] 7.4-10.4 Automated blood neutrophils/100 leukocytes 63 % 42-75 Automated blood lymphocytes/100 leukocytes 27 % 12-44 Blood monocytes/100 leukocytes 7 % 0-12 Automated blood eosinophils/100 leukocytes 2 % 0-10 Automated blood basophils/100 leukocytes 0 % 0-10 Blood neutrophils automated count (number/volume) 3.4 10*3 1.8-7.8 Blood lymphocytes automated count (number/volume) 1.5 10*3 1.0-4.0 Blood monocytes automated count (number/volume) 0.4 10*3 0.0-1.0 Automated eosinophil count 0.1 10*3/uL 0.0-0.3 Automated blood basophil count (count/volume) 0.0 10*3/uL 0.0-0.1 Comprehensive metabolic panel - 12/05/16 04:09 Serum or plasma sodium measurement (moles/volume) 147 mmol/ L 135-145 Serum or plasma potassium measurement (moles/volume) 3.1 mmol/L 3.6-5.0 Serum or plasma chloride measurement (moles/volume) 99 mmol/ L 98-107 Carbon dioxide 35 mmol/L 21-32 Serum or plasma anion gap determination (moles/volume) 13 mmol/L 5-14 Serum or plasma urea nitrogen measurement (mass/volume) 18 mg/dL 7-18 Serum or plasma creatinine measurement (mass/volume) 1.02 mg /dL 0.60-1.30 Serum or plasma urea nitrogen/creatinine mass ratio 18 0-20 Serum or plasma creatinine measurement with calculation of estimated glomerular filtration rate 51 NRG Serum or plasma glucose measurement (mass/volume) 104 mg/dL 70-105 Serum or plasma calcium measurement (mass/volume) 8.8 mg/dL 8.5-10.1 Serum or plasma total bilirubin measurement (mass/volume) 1.1 mg/dL 0.1-1.0 Serum or plasma alkaline phosphatase measurement (enzymatic activity/volume) 80 U/L 40-136 Serum or plasma aspartate aminotransferase measurement (enzymatic activity/ volume) 19 U/L 5-34 Serum or plasma alanine aminotransferase measurement (enzymatic activity/volume ) 12 U/L 0-55 Serum or plasma protein measurement (mass/volume) 6.0 g/dL 6.4-8.2 Serum or plasma albumin measurement (mass/volume) 3.2 g/dL 3.2-4.5 Serum or plasma phosphate measurement (mass/volume) - 12/05/16 04:09 Serum or plasma phosphate measurement (mass/volume) 2.7 mg/ dL 2.3-4.7 Magnesium - 12/05/16 04:09 Magnesium 1.5 mg/dL 1.8-2.4 Capillary blood glucose measurement by glucometer (mass/volume) - 12/06/16 03: 37 Capillary blood glucose measurement by glucometer (mass/volume) 102 mg/dL 70-110 Whole blood basic metabolic panel - 12/07/16 04:20 Serum or plasma sodium measurement (moles/volume) 146 mmol/ L 135-145 Serum or plasma potassium measurement (moles/volume) 2.9 mmol/L 3.6-5.0 Serum or plasma chloride measurement (moles/volume) 98 mmol/ L 98-107 Carbon dioxide 39 mmol/L 21-32 Serum or plasma anion gap determination (moles/volume) 9 mmol/L 5-14 Serum or plasma urea nitrogen measurement (mass/volume) 18 mg/dL 7-18 Serum or plasma creatinine measurement (mass/volume) 0.90 mg /dL 0.60-1.30 Serum or plasma urea nitrogen/creatinine mass ratio 20 0-20 Serum or plasma creatinine measurement with calculation of estimated glomerular filtration rate 59 NRG Serum or plasma glucose measurement (mass/volume) 99 mg/dL 70-105 Serum or plasma calcium measurement (mass/volume) 9.2 mg/dL 8.5-10.1 Capillary blood glucose measurement by glucometer (mass/volume) - 12/07/16 07: 03 Capillary blood glucose measurement by glucometer (mass/volume) 111 mg/dL 70-110 Encounters ACCT No. Visit Date/Time Discharge Status Pt. Type Provider Facility Loc./Unit Complaint [id number] 11/27/2016 00:09:00 2016 03:57:00 DIS Emergency IRA BELTRAN, CAITLIN Gilbert [facility] ER COOLRIO [id number] 11/12/2016 13:03:00 2016 14:48:00 DIS Inpatient SONNY SALTER DO [facility] 4TH HYPOXIA,DECREASED LOC [id number] 02/11/2015 08:14:00 2014 23:59:59 CLS Outpatient PETRA CARUSO DO [facility] RAD ABNORMAL MAMMO [id number] 09/11/2014 10:06:00 2014 23:59:59 CLS Outpatient HERBERT CARUSO [facility] RAD SCREENING [id number] 12/16/2013 08:32:00 2013 11:15:00 DIS Outpatient CROW BELTRAN, AMBREEN Gillis [facility] SDC NAUSEA [id number] 12/11/2013 07:24:00 2013 23:59:59 CLS Outpatient AMBREEN MARIA MD [facility] PREOP NAUSEA [id number] 11/28/2013 08:43:00 2013 23:59:59 CLS Outpatient PETRA CARUSO DO [facility] RAD FRACTURES [id number] 11/15/2013 10:05:00 2013 23:59:59 CLS Outpatient PETRA CARUSO DO [facility] RAD NAUSEA,WEIGHT LOSS [id number] 08/29/2013 14:03:00 2013 23:59:59 CLS Outpatient HERBERT CARUSO [facility] RAD ABD PAIN [id number] 11/12/2012 16:25:00 2012 23:59:59 CLS Outpatient [id number] 12/04/2016 15:41:00 ACT Inpatient SONNY SALTER DO [facility] 4TH A-FLUTTER WITH RVR [id number] 11/12/2016 16:59:00 Document Registration [id number] 06/30/2015 09:24:00 ACT Outpatient PETRA CARUSO DO [facility] RAD RADICULOPATHY [id number] 01/10/2014 09:01:00 Document Registration [id number] 09/08/2012 09:15:00 Document Registration [id number] 06/15/2012 14:11:00 Document Registration [id number] 05/04/2011 12:08:00 Document Registration [id number] 12/19/2010 10:30:00 Document Registration
--- OUTSIDE RECORDS SUMMARY | 2016-12-07 17:01 | XMS REPORT | Continuity of Care Document ---
Author Author [facility] Organization [facility] Address Unknown Phone Unavailable Allergies Active Description Code Type Severity Reaction Onset Reported/Identified Relationship to Patient Clinical Status Yes latex [id number] Drug Allergy Mild N/A 11/12/2016 Yes cephalexin [id number] Drug Allergy Unknown N/A 11/12/2016 Yes codeine [id number] Drug Allergy Unknown N/A 11/12/2016 Yes Penicillins [id number] Drug Allergy Unknown N/A 11/12/2016 Yes povidone-iodine [id number] Drug Allergy Unknown N/A 11/12/2016 Yes Soap [id number] Drug Allergy Unknown N/A 11/12/2016 Medications Problems [...] Ot 553.3 DIAPHRAGMATIC HERNIA 09/18/2014 HERBERT CARUSO [employer] Ot V76.12 10/03/2014 HERBERT CARUSO [employer] SUPERVISOR Ot V76.12 10/23/2014 HERBERT CARUSO [employer] SUPERVISOR Ot V76.12 11/24/2014 DAVID CARUSOIA Radha [employer] SUPERVISOR Ot 569.89 11/24/2014 HERBERT CARUSO [employer]RON[employer] SUPERVISOR Ot 787.3 11/24/2014 HERBERT CARUSO [employer]LECTRON[employer] SUPERVISOR Ot 789.00 03/03/2015 PETRA CARUSO DO Ot [...] ABDOMINAL PAIN, UNSPECIFIED SITE 11/12/2016 HERBERT CARUSO [employer] SUPERVISOR Ot 569.89 INTESTINAL DISORDERS NEC 11/12/2016 HERBERT CARUSO [employer] SUPERVISOR Ot 787.3 FLATUL/ERUCTAT/GAS PAIN 11/12/2016 HERBERT CARUSO [employer] SUPERVISOR Ot 789.00 ABDOMINAL PAIN, UNSPECIFIED SITE 11/12/2016 [...] culture - 11/12/16 14:48 Bacterial urine culture [id number] NRG COLONY COUNT 10,000/ML - 100,000/ML NRG [...] Status Pt. Type Provider Facility Loc./Unit Complaint [id number] 11/27/2016 00:09:00 2016 03:57:00 DIS Emergency IRA BELTRAN, CAITLIN Gilbert [facility] ER COOLRIO [id number] 11/12/2016 13:03:00 2016 14:48:00 DIS Inpatient SONNY SALTER DO [facility] 4TH HYPOXIA,DECREASED LOC [id number] 02/11/2015 08:14:00 2014 23:59:59 CLS Outpatient PETRA CARUSO DO [facility] RAD ABNORMAL MAMMO [id number] 09/11/2014 10:06:00 2014 23:59:59 CLS Outpatient HERBERT CARUSO [facility] RAD SCREENING [id number] 12/16/2013 08:32:00 2013 11:15:00 DIS Outpatient CROW BLETRAN, AMBREEN Gillis [facility] SDC NAUSEA [id number] 12/11/2013 07:24:00 2013 23:59:59 CLS Outpatient AMBREEN MARIA MD [facility] PREOP NAUSEA [id number] 11/28/2013 08:43:00 2013 23:59:59 CLS Outpatient PETRA CARUSO DO [facility] RAD FRACTURES [id number] 11/15/2013 10:05:00 2013 23:59:59 CLS Outpatient PETRA CARUSO DO [facility] RAD NAUSEA,WEIGHT LOSS [id number] 08/29/2013 14:03:00 2013 23:59:59 CLS Outpatient HERBERT CARUSO [facility] RAD ABD PAIN [id number] 11/12/2012 16:25:00 2012 23:59:59 CLS Outpatient [id number] 12/04/2016 15:41:00 ACT Inpatient SONNY SALTER DO [facility] 4TH A-FLUTTER WITH RVR [id number] 11/12/2016 16:59:00 Document Registration [id number] 06/30/2015 09:24:00 ACT Outpatient PETRA CARUSO DO [facility] RAD RADICULOPATHY [id number] 01/10/2014 09:01:00 Document Registration [id number] 09/08/2012 09:15:00 Document Registration [id number] 06/15/2012 14:11:00 Document Registration [id number] 05/04/2011 12:08:00 Document Registration [id number] 12/19/2010 10:30:00 Document Registration
== END 2016-12-07 15:16 | disposition home or self-care (01) | DRG 281 ==
LOC: EDUNIT# 14:31 → ER 14:34 → ICU 15:41 → 4TH 12-05 09:31
PROVIDERS: ADMIT Internal Medicine; ATTEND Internal Medicine
DX: I48.91 Unspecified atrial fibrillation (principal); I48.92 Unspecified atrial flutter; I21.4 Non-ST elevation (NSTEMI) myocardial infarction; J98.11 Atelectasis; R09.02 Hypoxemia; I25.10 Atherosclerotic heart disease of native coronary artery without angina pectoris; E86.0 Dehydration; N18.9 Chronic kidney disease, unspecified; Z66 Do not resuscitate; K21.9 Gastro-esophageal reflux disease without esophagitis; R32 Unspecified urinary incontinence; K58.9 Irritable bowel syndrome, unspecified; G62.9 Polyneuropathy, unspecified; E66.9 Obesity, unspecified; E87.8 Other disorders of electrolyte and fluid balance, not elsewhere classified; K59.09 Other constipation; G47.9 Sleep disorder, unspecified; F41.9 Anxiety disorder, unspecified; F32.9 Major depressive disorder, single episode, unspecified; Z68.36 Body mass index [BMI] 36.0-36.9, adult; Z89.611 Acquired absence of right leg above knee; Z85.820 Personal history of malignant melanoma of skin; Z87.19 Personal history of other diseases of the digestive system
CPT/HCPCS: 36415; 71010; 71260; 80048; 80053; 82962; 83605; 83735; 83880; 84100; 84484; 85025; 87040; 93005; 93306; 94760

== ENCOUNTER 2016-12-17 14:42 | Inpatient (IN) | payer MEDICARE, OTHER, MEDICAID ==
[~2016-12-17] VITALS: Ht 160 cm; Wt 96.2 kg
[~2016-12-17 14:42] MED LIST changes: +AMIT50TA3 PO; +CLOP75TA28 PO; +DONE10TA41 PO; +FURO-124 PO; +KETO5DRO14 OU; +LORA1TAB PO; +MORP-33 PO; +MORP-34 PO; +ONDA4TAB10 PO; +POTA20TA15 PO; +SUCR1TAB PO; +TRIA15CR TP; +VIT1TABL75 PO
--- NOTE | 2016-12-17 14:48 | ED General ---
General Stated Complaint: LOW O2 SATS Source of Information: EMS Exam Limitations: No Limitations History of Present Illness Time Seen by Provider: 14:45 Initial Comments To ER per EMS from medical [facility] with reports of long-term staff noting her to be more confused than normal though she is demented per baseline and hypoxic at 82 percent on her baseline oxygen. EMS staff removed the fingernail indian and found her oxygen saturation to be 95 percent. Patient has been here several times recently for atrial fibrillation with rapid ventricular response and pneumonia. Timing/Duration: 1-2 Days Severity: Moderate Allergies and Home Medications Allergies Coded Allergies: latex (Verified Allergy, Mild, 11/12/16) Penicillins (Verified Allergy, Unknown, 11/12/16) cephalexin (Verified Allergy, Unknown, 11/12/16) codeine (Verified Allergy, Unknown, 11/12/16) povidone-iodine (Verified Allergy, Unknown, 11/12/16) soap (Verified Allergy, Unknown, 11/12/16) Home Medications Acetaminophen 325 Mg Tab, 650 MG PO Q6H PRN for PAIN-MILD, (Reported) TAKE 2 (325MG) TABLETS NEEDED FOR PAIN Amitriptyline HCl 50 Mg Tablet, 50 MG PO HS, (Reported) Cholecalciferol 1,000 Unit Capsule, 2,000 UNITS PO DAILY, (Reported) Clopidogrel Bisulfate 75 Mg Tablet, 75 MG PO DAILY, (Reported) Dexlansoprazole 60 Mg Nadeem.bp, 60 MG PO DAILY, (Reported) Diclofenac Sodium 100 Gm Gel..gram., 4 GM TD Q4H PRN for PHANTOM PAIN, (Reported ) Donepezil HCl 10 Mg Tablet, 10 MG PO HS, (Reported) Furosemide 40 Mg Tablet, 40 MG PO every morning, #30 Prescribed by: NIXON SCOTT on 12/07/16 1123 Ketorolac Tromethamine 5 Ml Drops, 1 DROP OU QID, (Reported) Lactobacillus Rhamnosus 1 Cap Capsule, 1 CAP PO DAILY, (Reported) Loperamide HCl 2 Mg Tablet, 4 MG PO Q6H PRN for DIARRHEA, (Reported) TAKES 2 (2 MG) TABLETS Lorazepam 1 Mg Tablet, 1 MG PO BID, (Reported) Lovastatin 20 Mg Tablet, 20 MG PO HS, (Reported) Melatonin 3 Mg Tablet, 6 MG PO HS, (Reported) Metoprolol Tartrate 25 Mg Tablet, 12.5 MG PO BID, (Reported) TAKES 1/2 OF A (25 MG) TABLET Morphine Sulfate 30 Mg Tablet.er, 30 MG PO Q12H, (Reported) Morphine Sulfate 15 Mg Tablet, 15 MG PO Q6H PRN for PAIN-BREAKTHROUGH, (Reported ) Ondansetron HCl 4 Mg Tablet, 4 MG PO Q6H PRN for NAUSEA/VOMITING-1ST LINE, ( Reported) Potassium Chloride 20 Meq Tab.er.prt, 20 MEQ PO BID, #60 Prescribed by: NIXON SCOTT on 12/07/16 1123 Pregabalin 200 Mg Capsule, 200 MG PO TID, (Reported) Simethicone 80 Mg Tab.chew, 80 MG PO BID, (Reported) Sucralfate 1 Gm Tablet, 1 GM PO TID, (Reported) Triamcinolone Acetonide 15 Gm Cream..g., TP Q8H PRN for RASH, (Reported) Vit B Cmplx 3/FA/Vit C/Biotin 1 Each Tablet, 1 TAB PO DAILY, (Reported) Constitutional: see HPI EENTM: see HPI Respiratory: no symptoms reported Cardiovascular: no symptoms reported Genitourinary: no symptoms reported Musculoskeletal: see HPI Skin: no symptoms reported Psychiatric/Neurological: No Symptoms Reported Hematologic/Lymphatic: No Symptoms Reported Past Iqcqrot-Nqgegj-Yfhqna Hx Patient Social History Type Used: Cigarettes Recent Hopitalizations: No Immunizations Up To Date Tetanus Booster (TDap): Unknown Date of Pneumonia Vaccine: Apr 17, 2009 Seasonal Allergies Seasonal Allergies: No Surgeries HX Surgeries: Yes Surgeries: Amputation, Gallbladder, Hysterectomy Respiratory Hx Respiratory Disorders: No Cardiovascular Hx Cardiac Disorders: No Neurological Hx Neurological Disorders: Yes Neurological Disorders: Neuropathy Reproductive System Hx Reproductive Disorders: No Sexually Transmitted Disease: No Genitourinary Hx Genitourinary Disorders: Yes (INCONTINENCE) Gastrointestinal Hx Gastrointestinal Disorders: Yes (DIVERTICULITIS, IBS, ) Gastrointestinal Disorders: Gastroesophageal Reflux, Chronic Constipation Musculoskeletal Hx Musculoskeletal Disorders: Yes Musculoskeletal Disorders: Amputee Endocrine Hx Endocrine Disorders: No HEENT HX ENT Disorders: Yes (difficulty swallowing pills) Cancer Cancer: Skin Psychosocial Hx Psychiatric Problems: Yes Behavioral Health Disorders: Sleep Difficulties, Anxiety, Depression Integumentary HX Skin/Integumentary Disorder: Yes (history of melanoma) Blood Transfusions Hx Blood Disorders: No Family Medical History Family Medial History: Completed stroke 19 MOTHER Diabetes mellitus 19 MOTHER Myocardial infarction 19 MOTHER Physical Exam Vital Signs Vital Sign - Last 12Hours 12/17/16 14:49 Temp 99.1 Pulse 90 Resp 16 B/P (MAP) 131/79 Pulse Ox 95 O2 Delivery Nasal Cannula Capillary Refill : General Appearance: No Apparent Distress, WD/WN Eyes: Bilateral Eye EOMI, Bilateral Eye Normal Inspection, Bilateral Eye PERRL HEENT: PERRL/EOMI, TMs Normal Neck: Full Range of Motion, Normal Inspection Respiratory: No Accessory Muscle Use, No Respiratory Distress, Decreased Breath Sounds Cardiovascular: Regular Rate, Rhythm, Normal Peripheral Pulses Gastrointestinal: Normal Bowel Sounds, Non Tender, Soft Extremity: Normal Capillary Refill, Normal Inspection Neurologic/Psychiatric: Alert, Other (alert and talkative but confused) Skin: Normal Color, Warm/Dry Progress/Results/Core Measures Results/Orders Lab Results Laboratory Tests Test 12/17/16 14:45 12/17/16 15:15 Range/Units White Blood Count 10.8 4.3-11.0 10^3/uL Red Blood Count 5.43 4.35-5.85 10^6/uL Hemoglobin 14.8 11.5-16.0 G/DL Hematocrit 49 35-52 % Mean Corpuscular Volume 90 80-99 FL Mean Corpuscular Hemoglobin 27 25-34 PG Mean Corpuscular Hemoglobin Concent 31 L 32-36 G/DL Red Cell Distribution Width 15.1 H 10.0-14.5 % Platelet Count 140 130-400 10^3/uL Mean Platelet Volume 11.6 H 7.4-10.4 FL Neutrophils (%) (Auto) 82 H 42-75 % Lymphocytes (%) (Auto) 12 12-44 % Monocytes (%) (Auto) 5 0-12 % Eosinophils (%) (Auto) 1 0-10 % Basophils (%) (Auto) 0 0-10 % Neutrophils # (Auto) 8.8 H 1.8-7.8 X 10^3 Lymphocytes # (Auto) 1.3 1.0-4.0 X 10^3 Monocytes # (Auto) 0.6 0.0-1.0 X 10^3 Eosinophils # (Auto) 0.1 0.0-0.3 10^3/uL Basophils # (Auto) 0.0 0.0-0.1 10^3/uL Neutrophils % (Manual) 71 % Lymphocytes % (Manual) 11 % Band Neutrophils 8 % Blood Morphology Comment NORMAL Sodium Level 146 H 135-145 MMOL/L Potassium Level 4.3 3.6-5.0 MMOL/L Chloride Level 95 L 98-107 MMOL/L Carbon Dioxide Level 36 H 21-32 MMOL/L Anion Gap 15 H 5-14 MMOL/L Blood Urea Nitrogen 17 7-18 MG/DL Creatinine 1.44 H 0.60-1.30 MG/DL Estimat Glomerular Filtration Rate 34 BUN/Creatinine Ratio 12 Glucose Level 117 H 70-105 MG/DL Calcium Level 9.2 8.5-10.1 MG/DL Total Bilirubin 1.1 H 0.1-1.0 MG/DL Aspartate Amino Transf (AST/SGOT) 23 5-34 U/L Alanine Aminotransferase (ALT/SGPT) 14 0-55 U/L Alkaline Phosphatase 93 40-136 U/L Troponin I 0.48 *H <0.30 NG/ML B-Type Natriuretic Peptide 901.4 H <100.0 PG/ML Total Protein 6.8 6.4-8.2 GM/DL Albumin 3.6 3.2-4.5 GM/DL Urine Color YELLOW Urine Clarity SLIGHTLY CLOUDY Urine pH 5 5-9 Urine Specific Piru 1.015 L 1.016-1.022 Urine Protein NEGATIVE NEGATIVE Urine Glucose (UA) NEGATIVE NEGATIVE Urine Ketones NEGATIVE NEGATIVE Urine Nitrite NEGATIVE NEGATIVE Urine Bilirubin NEGATIVE NEGATIVE Urine Urobilinogen NORMAL NORMAL MG/DL Urine Leukocyte Esterase 3+ H NEGATIVE Urine RBC (Auto) NEGATIVE NEGATIVE Urine RBC NONE /HPF Urine WBC 10-25 H /HPF Urine Squamous Epithelial Cells 0-2 /HPF Urine Crystals NONE /LPF Urine Bacteria FEW H /HPF Urine Casts NONE /LPF Urine Mucus NEGATIVE /LPF Urine Culture Indicated YES My Orders Orders - TYRONE DOUGLAS APRN Cbc And Manual Diff (12/17/16 14:51) Comprehensive Metabolic Panel (12/17/16 14:51) Troponin I (12/17/16 14:51) BNP (12/17/16 14:51) Ekg Tracing (12/17/16 14:51) Continuous Ekg Monitoring (12/17/16 14:51) Chest 1 View, Ap/Pa Only (12/17/16 14:51) Ua Culture If Indicated (12/17/16 14:51) Enoxaparin Injection (Lovenox Injection) (12/17/16 15:30) Urine Culture (12/17/16 15:15) Furosemide Injection (Lasix Injection) (12/17/16 15:45) Metoprolol Tartrate Injection (Lopressor (12/17/16 15:45) Medications Given in ED Current Medications Medications Dose Ordered Sig/Elisabet Route Start Time Stop Time Status Last Admin Dose Admin Enoxaparin Sodium 80 mg ONCE ONCE SC 12/17/16 15:30 12/17/16 15:31 DC 12/17/16 16:00 80 MG Furosemide 80 mg ONCE ONCE IVP 12/17/16 15:45 12/17/16 15:46 DC 12/17/16 16:00 80 MG Metoprolol Tartrate 5 mg ONCE ONCE IV 12/17/16 15:45 12/17/16 15:46 DC 12/17/16 16:00 5 MG Vital Signs/I&O Vital Sign - Last 12Hours 12/17/16 12/17/16 14:49 16:00 Temp 99.1 99.1 Pulse 90 Resp 16 B/P (MAP) 131/79 Pulse Ox 95 O2 Delivery Nasal Cannula Departure Communication Time/Spoke to Admitting Phy: 15:[address] Reynaga, consult Time/Spoke to Consulting Physi: 15:35 Communication/Consulting Dr. Dutta who agrees to consult. Recommends 80 mg IV Lasix, serial troponins, Lovenox renal dosed Progress Notes 1542-heart rate up to 140, A. fib. 5 mg of Lopressor IV ordered. Blood pressure 131/92. Patient's family wants to make sure that I have DO NOT RESUSCITATE order on the chart. They are interested in pursuing hospice but they would like to have this conversation away from the patient. We Danuta is demented but knows the meaning of hospice and family states that she became upset last time they mentioned this to her.. Family states they would be agreeable to discussing this further with comfort as her main focus because they feel that these hospital readmissions will continue happening with more frequency until she ultimately passes. 1613- patient was given 5 mg of IV Lopressor. A few minutes after this she developed a cause lasting about 4.5 seconds with conversion to normal sinus rhythm rate of 85. Impression Impression: Primary Impression: NSTEMI (non-ST elevated myocardial infarction) Additional Impression: CHF (congestive heart failure) Disposition: 09 ADMITTED INPATIENT Condition: Stable Decision to Admit Reason: Admit from ER (General) Departure-Patient Inst. Referrals: PETRA CARUSO DO (PCP/Family) Primary Care Physician Copy Copies To 1: PETRA CARUSO PETER J APRN Dec 17, 2016 14:48
[2016-12-17 14:57] LABS: BASOPHILS % (AUTO) 0 % (0-10); EOSINOPHILS # (AUTO) 0.1 10^3/uL (0.0-0.3); EOSINOPHILS % (AUTO) 1 % (0-10); LYMPHOCYTES # (AUTO) 1.3 X 10^3 (1.0-4.0); LYMPHOCYTES % (AUTO) 12 % (12-44); MEAN CORPUSCULAR HEMOGLOBIN 27 PG (25-34); MEAN CORPUSCULAR HGB CONC 31 G/DL (32-36); MEAN CORPUSCULAR VOLUME 90 FL (80-99); MEAN PLATELET VOLUME 11.6 FL (7.4-10.4); MONOCYTES # (AUTO) 0.6 X 10^3 (0.0-1.0); MONOCYTES % (AUTO) 5 % (0-12); NEUTROPHILS # (AUTO) 8.8 X 10^3 (1.8-7.8); NEUTROPHILS % (AUTO) 82 % (42-75); PLATELET COUNT 140 10^3/uL (130-400); RED BLOOD COUNT 5.43 10^6/uL (4.35-5.85); RED CELL DISTRIBUTION WIDTH 15.1 % (10.0-14.5); WHITE BLOOD COUNT 10.8 10^3/uL (4.3-11.0)
[2016-12-17 15:11] LABS: ALBUMIN 3.6 GM/DL (3.2-4.5); BAND NEUTROPHILS 8 %; BILIRUBIN,TOTAL 1.1 MG/DL (0.1-1.0); CALCIUM 9.2 MG/DL (8.5-10.1); CREATININE SERUM 1.44 MG/DL (0.60-1.30); LYMPHOCYTES % (MANUAL) 11 %; NEUTROPHILS % (MANUAL) 71 %; POTASSIUM 4.3 MMOL/L (3.6-5.0); TOTAL PROTEIN 6.8 GM/DL (6.4-8.2)
[2016-12-17 15:19] LABS: TROPONIN I 0.48 NG/ML (<0.30)
[2016-12-17 15:19] LABS: BILIRUBIN,URINE NEGATIVE (NEGATIVE); KETONES,URINE NEGATIVE (NEGATIVE); LEUKOCYTE ESTERASE ,URINE 3+ (NEGATIVE); NITRITE,URINE NEGATIVE (NEGATIVE); PH,URINE 5 (5-9); PROTEIN,URINE NEGATIVE (NEGATIVE); UROBILINOGEN,URINE NORMAL (NORMAL)
--- NOTE | 2016-12-17 15:28 | Diagnostic Imaging Report ---
INDICATION: Decreased O2 sats. COMPARISON: 12/05/2016. EXAMINATION: Single view of the chest was obtained. FINDINGS: There continues to be elevation of the right hemidiaphragm with bibasilar atelectasis. There has been some improvement in aeration on the left when compared with previous study. The heart remains mildly enlarged. The upper lungs are clear with decreasing pulmonary venous congestion. IMPRESSION: 1. Some clearing of left basilar atelectasis and/or infiltrate. 2. Persistent right basilar atelectasis. 3. Clearing of pulmonary venous congestive changes. Dictated by: Dictated on workstation # [id number]
[2016-12-17] MEDS ORDERED: ENOXAPARIN 80 MG/0.8 ML (LOVENOX) SYR SC ONE (15:30)
[2016-12-17 15:31] LABS: SQUAMOUS EPITHELIAL CELL,UR 0-2 /HPF
[2016-12-17] MEDS ORDERED: FUROSEMIDE 40 MG/4 ML INJ (LASIX) IVP ONE (15:45)
[2016-12-17] MEDS ORDERED: meTOprolol 5 MG/5 ML (LOPRESSOR) VIAL IV ONE (15:45)
[2016-12-17] MEDS ORDERED: TRIM/SULFAMETH 160/800 (SEPTRA DS) TAB PO SCH (17:00)
[2016-12-17] MEDS: NS IV 1000 ML 1,000 ML IV SCH (17:48)
[2016-12-17] MEDS ORDERED: cefTRIAXone INJECTION 1,000 MG in NS (IVPB) 50 ML IV SCH (21:00)
[2016-12-18 04:00] VITALS: BP 122/63
[2016-12-18 04:56] LABS: ANION GAP 9 MMOL/L (5-14); BLOOD UREA NITROGEN 18 MG/DL (7-18); BUN/CREATININE RATIO 15; CALCIUM 8.7 MG/DL (8.5-10.1); CARBON DIOXIDE 37 MMOL/L (21-32); CHLORIDE 98 MMOL/L (98-107); CREATININE SERUM 1.17 MG/DL (0.60-1.30); GFR ESTIMATED 44; GLUCOSE 101 MG/DL (70-105); POTASSIUM 4.2 MMOL/L (3.6-5.0); SODIUM 144 MMOL/L (135-145)
[2016-12-18 05:05] LABS: TROPONIN I < 0.30 NG/ML (<0.30)
[2016-12-18] MEDS: NS IV 1000 ML 1,000 ML IV SCH ×2 (06:44→07:38)
[2016-12-18] MEDS: RT-ALBUTEROL/IPRATROPIUM 3 ML (DUONEB) VIAL INH SCH ×3 (07:46→19:07)
[2016-12-18 08:00] VITALS: BP 125/68
[2016-12-18] MEDS ORDERED: meTOprolol 5 MG/5 ML (LOPRESSOR) VIAL IV NR (11:00)
[2016-12-18] MEDS: meTOprolol TARTRATE 25 MG (LOPRESSOR) TABLET PO SCH ×2 (11:11→21:04)
[2016-12-18 11:13] VITALS: BP 133/94
[2016-12-18] MEDS ORDERED: TRIAMCINOLONE 0.5% CR (KENALOG) 15 GM TUBE TP PRN (11:45)
[2016-12-18] MEDS ORDERED: DICLOFENAC 1% GEL 100 GM (VOLTAREN) TUBE TOP PRN (11:45)
[2016-12-18] MEDS ORDERED: ACETAMINOPHEN 325 MG TABLET/CAPLET (TYLENOL) PO PRN (11:45)
[2016-12-18] MEDS ORDERED: morphine IMMEDIATE RELEASE 15 MG TABLET PO PRN (11:45)
[2016-12-18] MEDS ORDERED: LOPERAMIDE 2 MG (IMODIUM) CAP PO PRN (11:45)
[2016-12-18] MEDS ORDERED: ONDANSETRON 4 MG (ZOFRAN) ORAL DISSOLVE TAB PO PRN (11:45)
--- NOTE | 2016-12-18 11:48 | History & Physical-Hospitalist ---
HPI History of Present Illness: HPI/Chief Complaint CC: Congestive heart failure with elevated troponin, pneumonia and UTI HPI: This is an 86-year-old white female of Dr. Arguello'siena that [facility] that is had a very sharp decline in her status last couple of months with multiple hospitalizations recently for the same thing of atrial fibrillation with rapid ventricular response, congestive heart failure, pneumonia the presents to the emergency room with weakness and found to have pneumonia, volume overload, UTI, and a to fibrillation with rapid ventricular response. Due to the fact that her overall decline is very apparent and having difficulty even carrying on a conversation due to her weakened status she is deemed a hospice candidate will continue that conversation that was recently had in the emergency room yesterday about hospice and will sign up for hospice for end-of-life care. Overall she is declined so rapidly that this is the only option to manage her in a supportive role. Source: patient Exam Limitations: clinical condition Date Seen 12/18/16 Time Seen by Provider: 10:30 Attending Physician Gita Reynaga DO PCP Brennan Arguello DO Referring Physician Date of Admission Dec 17, 2016 at 15:48 Home Medications & Allergies Home Medications Reviewed patient Home Medication Reconciliation Form Allergies Allergies Coded Allergies latex (Verified Allergy, Mild, 11/12/16) Penicillins (Verified Allergy, Unknown, 11/12/16) cephalexin (Verified Allergy, Unknown, 11/12/16) codeine (Verified Allergy, Unknown, 11/12/16) povidone-iodine (Verified Allergy, Unknown, 11/12/16) soap (Verified Allergy, Unknown, 11/12/16) Past Vuvgqyo-Bimvzd-Jvjvyy Hx Patient Social History Marrital Status: Employed/Student: retired Alcohol Use: Denies Use Recreational Drug Use: No Smoking Status: Former Smoker Type Used: Cigarettes Physical Abuse Screen: No Sexual Abuse: No Recent Foreign Travel: No Contact w/other who traveled: No Recent Hopitalizations: No Recent Infectious Disease Expo: No Immunizations Up To Date Tetanus Booster (TDap): Unknown Date of Pneumonia Vaccine: Apr 17, 2009 Seasonal Allergies Seasonal Allergies: No Surgeries HX Surgeries: Yes Surgeries: Amputation, Gallbladder, Hysterectomy Respiratory Hx Respiratory Disorders: Yes Respiratory Disorders: COPD, Sleep Apnea Cardiovascular Hx Cardiovascular Disorders: Yes Cardiac Disorders: Atrial Fibrillation, Cardiomyopathy, Chronic Edema/Swelling , Coronary Artery Disease, High Cholesterol, Hypertension Neurological Hx Neurological Disorders: Yes Neurological Disorders: Dementia, Neuropathy Reproductive System Hx Reproductive Disorders: No Sexually Transmitted Disease: No Genitourinary Hx Genitourinary Disorders: Yes (INCONTINENCE) Gastrointestinal Hx Gastrointestinal Disorders: Yes (DIVERTICULITIS, IBS, ) Gastrointestinal Disorders: Gastroesophageal Reflux, Chronic Constipation Musculoskeletal Hx Musculoskeletal Disorders: Yes Musculoskeletal Disorders: Amputee Endocrine Hx Endocrine Disorders: No HEENT HX ENT Disorders: Yes (difficulty swallowing pills) HEENT Disorders: Cataract Cancer Cancer: Skin Psychosocial Hx Psychiatric Problems: Yes Behavioral Health Disorders: Sleep Difficulties, Anxiety, Depression Integumentary HX Skin/Integumentary Disorder: Yes (history of melanoma) Blood Transfusions Hx Blood Disorders: No Reviewed Nursing Assessment Reviewed/Agree w Nursing PMH: Yes Family Medical History Family Hx: Completed stroke 19 MOTHER Diabetes mellitus 19 MOTHER Myocardial infarction 19 MOTHER Review of Systems ROS-Unable to Obtain: Pt drowsy and end stage of life Constitutional: malaise, weakness Physical Exam Physical Exam Vital Signs Vital Sign - Last 12Hours 12/17/16 12/17/16 14:49 17:04 Temp 99.1 Pulse 90 Resp 16 B/P (MAP) 131/79 Pulse Ox 95 O2 Delivery Nasal Cannula O2 Flow Rate 8.00 Capillary Refill : Less Than 3 Seconds General Appearance: No Apparent Distress, WD/WN, Chronically ill, Obese, Other (drowsy, end of life status) Eyes: Bilateral Eye Normal Inspection, Bilateral Eye PERRL HEENT: PERRL/EOMI, Normal ENT Inspection, Pharynx Normal Neck: Full Range of Motion, Normal Inspection, Non Tender, Supple, Carotid Bruit Respiratory: Chest Non Tender, No Accessory Muscle Use, No Respiratory Distress , Crackles, Decreased Breath Sounds, Wheezing Cardiovascular: No Edema, No Gallop, No JVD, No Murmur, Normal Peripheral Pulses, Irregularly Irregular, Tachycardia Gastrointestinal: Normal Bowel Sounds, No Organomegaly, No Pulsatile Mass, Non Tender, Soft Back: Normal Inspection, No CVA Tenderness, No Vertebral Tenderness Extremity: Normal Capillary Refill, Normal Inspection, Normal Range of Motion, Non Tender, No Calf Tenderness, No Pedal Edema Neurologic/Psychiatric: Alert, No Motor/Sensory Deficits, Depressed Affect, Disoriented x3 Skin: Normal Color, Warm/Dry Lymphatic: No Adenopathy Results Results/Procedures Lab Laboratory Tests 12/17/16 14:45 12/18/16 04:02 Assessment/Plan Admission Diagnosis Assessment: Atrial fibrillation with rapid ventricular response Congestive heart failure Non-ST elevation DC with elevated troponin Pneumonia UTI Hyponatremia Chronic pain End-of-life status Assessment and Plan Plan: Control rapid ventricular response since that can cause discomfort I recommend comfort care protocol Hospice candidate Discharge back to [facility] on hospice Clinical Quality Measures DVT/VTE Risk/Contraindication: Risk Factor Score Per Nursin RFS Level Per Nursing on Admit: 4+=Very High GITA REYNAGA DO Dec 18, 2016 11:48
--- NOTE | 2016-12-18 12:40 | Consultation-Cardiology ---
HPI-Cardiology Cardiology Consultation: Date of Consultation 12/18/16 Date of Admission Attending Physician Gita Reynaga DO Admitting Physician Brennan Arguello DO Consulting Physician Carlin DUTTA MD HPI: Time Seen by Provider: 12:39 Chief Complaint: shortness of breath this is a pleasant 86-year-old lady who I have now seen a few times as inpatient consultation. The first time I saw her was due to a non-STEMI and acute kidney injury which was probably secondary to dehydration. Coronary artery disease was treated medically. She lives in a skilled nursing and has worsening dementia. She presented again with atrial fibrillation and responded to Cardizem. she presents again with shortness of breath and was found to be in atrial fibrillation which responded to Lopressor. She converted to sinus rhythm. However this morning she had another episode of atrial fibrillation and responded to IV Lopressor as well. On my interview she feels better and her shortness of breath is improved. Review of Systems-Cardiology Review of Systems Time Seen by Provider: 12:40 Constitutional: No As described under HPI, No no symptoms reported, No chills, No fever, No lightheadedness, No malaise, No tiredness, No weight loss, No weight gain, No other Eyes: No As described under HPI, No no symptoms reported, No blindness, No blurred vision, No contact lenses, No drainage, No decreased acuity, No foreign body sensation, No glasses, No inflammation, No pain, No photophobia, No previous injury, No shadows, No tunnel vision, No other, No vision change Ears/Nose/Throat: No As described under HPI, No no symptoms reported, No chronic hearing loss, No epistaxis, No ear discharge, No ear pain, No loose teeth, No mouth pain, No mouth swelling, No nasal drainage, No nose pain, No recent hearing loss, No throat pain, No throat swelling, No ulcerations, No other Respiratory: No no symptoms reported, No As described under HPI, No cough, No orthopnea, shortness of breath, No SOB with excertion, No SOB at rest, No stridor, No wheezing, No other Cardiovascular: No no symptoms reported, No As described under HPI, No chest pain, No edema, irregular heart rate, No lightheadedness, No palpitations, No syncope, No other Gastrointestinal: No no symptoms reported, No As described under HPI, No abdomen distended, No abdominal pain, No blood streaked bowels, No constipation , No diarrhea, No difficulty swallowing, No nausea, No poor appetite, No poor fluid intake, No rectal bleeding, No vomiting, No other, No nausea/vomiting/ diarrhea, No stool coloration changes Genitourinary: No no symptoms reported, No As described under HPI, No burning, No dysuria, No discharge, No frequency, No flank pain, No hematuria, No incontinence, No pain, No urgency, No other, No urine frequency changes, No urine coloration changes Musculoskeletal: No no symptoms reported, No As describe under HPI, No back pain, No gout, No joint pain, No joint swelling, No muscle pain, No muscle stiffness, No neck pain, No other Skin: No no symptoms reported, No As described under HPI, No change in color, No change in hair/nails, No dryness, No lesions, No lumps, No rash, No other, No skin related problems, No ulcerations, No rash on exposed areas, No ulcerations on exposed areas Psychiatric/Neurological: No As described under HPI, No anxiety, No depression , No emotional problems, No focal weakness, No headache, No no symptoms reported , No numbness, No other, No pre-existing deficit, No seizure, No syncope, No tingling, No tremors, No weakness Hematologic: No no symptoms reported, No As described under HPI, No anemia, No blood clots, No easy bleeding, No easy bruising, No swollen glands, No other, No bleeding abnormalities QEX-Aleojm-Iyjlgv Hx Patient Social History Marrital Status: Employed/Student: retired Alcohol Use: Denies Use Recreational Drug Use: No Smoking Status: Former Smoker Type Used: Cigarettes Recent Foreign Travel: No Recent Infectious Disease Expo: No Physical Abuse Screen: No Sexual Abuse: No Immunizations Up To Date Tetanus Booster (TDap): Unknown Date of Pneumonia Vaccine: Apr 17, 2009 Past Medical History PMH As described under Assessment. Family Medical History Family History: Completed stroke 19 MOTHER Diabetes mellitus 19 MOTHER Myocardial infarction 19 MOTHER Allergies and Home Medications Allergies Coded Allergies: latex (Verified Allergy, Mild, 11/12/16) Penicillins (Verified Allergy, Unknown, 11/12/16) cephalexin (Verified Allergy, Unknown, 11/12/16) codeine (Verified Allergy, Unknown, 11/12/16) povidone-iodine (Verified Allergy, Unknown, 11/12/16) soap (Verified Allergy, Unknown, 11/12/16) Home Medications Acetaminophen 325 Mg Tab, 650 MG PO Q6H PRN for PAIN-MILD, (Reported) TAKE 2 (325MG) TABLETS NEEDED FOR PAIN Amitriptyline HCl 50 Mg Tablet, 50 MG PO HS, (Reported) Cholecalciferol 1,000 Unit Capsule, 2,000 UNITS PO DAILY, (Reported) Clopidogrel Bisulfate 75 Mg Tablet, 75 MG PO DAILY, (Reported) Dexlansoprazole 60 Mg Cap.drPedrobp, 60 MG PO DAILY, (Reported) Diclofenac Sodium 100 Gm Gel..gram., 4 GM TD Q4H PRN for PHANTOM PAIN, (Reported ) Donepezil HCl 10 Mg Tablet, 10 MG PO HS, (Reported) Furosemide 40 Mg Tablet, 40 MG PO every morning, #30 Prescribed by: NIXON SCOTT on 12/07/16 1123 Ketorolac Tromethamine 5 Ml Drops, 1 DROP OU QID, (Reported) Lactobacillus Rhamnosus 1 Cap Capsule, 1 CAP PO DAILY, (Reported) Loperamide HCl 2 Mg Tablet, 4 MG PO Q6H PRN for DIARRHEA, (Reported) TAKES 2 (2 MG) TABLETS Lorazepam 1 Mg Tablet, 1 MG PO BID, (Reported) Lovastatin 20 Mg Tablet, 20 MG PO HS, (Reported) Melatonin 3 Mg Tablet, 6 MG PO HS, (Reported) Metoprolol Tartrate 25 Mg Tablet, 12.5 MG PO BID, (Reported) TAKES 1/2 OF A (25 MG) TABLET Morphine Sulfate 30 Mg Tablet.er, 30 MG PO Q12H, (Reported) Morphine Sulfate 15 Mg Tablet, 15 MG PO Q6H PRN for PAIN-BREAKTHROUGH, (Reported ) Ondansetron HCl 4 Mg Tablet, 4 MG PO Q6H PRN for NAUSEA/VOMITING-1ST LINE, ( Reported) Potassium Chloride 20 Meq Tab.er.prt, 20 MEQ PO BID, #60 Prescribed by: NIXON SCOTT on 12/07/16 1123 Pregabalin 200 Mg Capsule, 200 MG PO TID, (Reported) Simethicone 80 Mg Tab.chew, 80 MG PO BID, (Reported) Sucralfate 1 Gm Tablet, 1 GM PO TID, (Reported) Triamcinolone Acetonide 15 Gm Cream..g., TP Q8H PRN for RASH, (Reported) Vit B Cmplx 3/FA/Vit C/Biotin 1 Each Tablet, 1 TAB PO DAILY, (Reported) Physical Exam-Cardiology Physical Exam Vital Signs/I&O Vital Sign - Last 12Hours 12/18/16 12/18/16 12/18/16 12/18/16 01:00 04:00 04:00 04:00 Temp 97.3 Pulse 63 61 Resp 14 B/P (MAP) 122/63 Pulse Ox 94 O2 Delivery OxyMask OxyMask OxyMask O2 Flow Rate 8.00 8.00 8.00 12/18/16 12/18/16 12/18/16 12/18/16 07:00 07:46 08:00 08:00 Temp 96.9 Pulse 60 64 Resp 16 B/P (MAP) 125/68 Pulse Ox 100 100 O2 Delivery OxyMask OxyMask OxyMask O2 Flow Rate 6.00 6.00 6.00 12/18/16 12/18/16 10:00 11:13 Temp 97.8 Pulse 109 110 Resp 21 16 B/P (MAP) 133/94 Pulse Ox 95 99 O2 Delivery Nasal Cannula Nasal Cannula O2 Flow Rate 4.00 4.00 Intake and Output 12/18/16 00:00 Intake Total 0 ml Output Total 300 ml Balance -300 ml Capillary Refill : Less Than 3 Seconds Constitutional: No appears stated age, No AAO x 3, No apparent distress, No PERRL, No well-developed, No well-nourished, No other HEENT: No PERRL, No normal ENT inspection, No TMs normal, No pharynx normal, No scleral icterus (R), No scleral icterus (L), No pale conjunctivae (R), No pale conjunctivae (L), No photophobia, No TM abnormal (R), No TM abnormal (L), No pharyngeal erythema, No tonsillar exudate, No other, No discharge, No EOMI, No hearing is well preserved, No hard of hearing, No oral hygience is good, No ulceration, No xanthelasmas are seen Neck: No non-tender, No full range of motion, No supple, No normal inspection, No carotid bruit, No limited range of motion, No lymphadenopathy (R), No lymphadenopathy (L), No tender lateral, No tender midline, No thyromegaly, No other, No carotid pulses are 2 + bilaterally, No with good upstrokes Respiratory: No accessory muscle use, No respiratory distress, No chest tender , No chest expansion is symmetric, No chest is bilaterally symmetric, No lungs clear to percussion, No lungs clear to auscultation, No crackles, No rhonchi, No rales, No stridor, No wheezing, No pleural rub, No other Cardiovascular: regular rate-rhythm, S1 and S2 Gastrointestinal: No tender, No soft, No round, No distended, No pulsatile mass , No organomegaly, No guarding, No rebound, No tenderness, No hernia, No mass, No audible bowel sounds, No abnormal bowel sounds, No abdominal bruits, No spleenomegaly, No other Rectal: deferred Extremities: No normal range of motion, No non-tender, No normal inspection, No pedal edema, No calf tenderness, No normal capillary refill, No pelvis stable , No calf tenderness, No inflammation, No pedal edema, No slow capillary refill , No swelling, No other, No abrasion, No clubbing, No cyanosis, No ecchymosis, No laceration, No no lower extremity edema bilateral, No significant edema, No tenderness, No wound Neurologic/Psychiatric: alert, normal mood/affect Skin: No normal color, No warm/dry, No cyanosis, No cool, No diaphoresis, No damp, No ecchymosis, No jaundice, No mottled, No pallor, No rash, No tattoos/ piercings, No ulcerations, No rash on exposed areas, No ulcerations on exposed areas, No other Data Review Labs Laboratory Tests 12/17/16 14:45: White Blood Count 10.8, Red Blood Count 5.43, Hemoglobin 14.8, Hematocrit 49, Mean Corpuscular Volume 90, Mean Corpuscular Hemoglobin 27, Mean Corpuscular Hemoglobin Concent 31L, Red Cell Distribution Width 15.1H, Platelet Count 140, Mean Platelet Volume 11.6H, Neutrophils (%) (Auto) 82H, Lymphocytes (%) (Auto) 12, Monocytes (%) (Auto) 5, Eosinophils (%) (Auto) 1, Basophils (%) (Auto) 0, Neutrophils # (Auto) 8.8H, Lymphocytes # (Auto) 1.3, Monocytes # (Auto) 0.6, Eosinophils # (Auto) 0.1, Basophils # (Auto) 0.0, Neutrophils % (Manual) 71, Lymphocytes % (Manual) 11, Band Neutrophils 8, Blood Morphology Comment NORMAL, Sodium Level 146H, Potassium Level 4.3, Chloride Level 95L, Carbon Dioxide Level 36H, Anion Gap 15H, Blood Urea Nitrogen 17, Creatinine 1.44H, Estimat Glomerular Filtration Rate 34, BUN/Creatinine Ratio 12, Glucose Level 117H, Calcium Level 9.2, Total Bilirubin 1.1H, Aspartate Amino Transf (AST/SGOT) 23, Alanine Aminotransferase (ALT/SGPT) 14, Alkaline Phosphatase 93, Troponin I 0.48 *H, B-Type Natriuretic Peptide 901.4H, Total Protein 6.8, Albumin 3.6 12/17/16 15:15: Urine Color YELLOW, Urine Clarity SLIGHTLY CLOUDY, Urine pH 5, Urine Specific [place] 1.015L, Urine Protein NEGATIVE, Urine Glucose (UA) NEGATIVE, Urine Ketones NEGATIVE, Urine Nitrite NEGATIVE, Urine Bilirubin NEGATIVE, Urine Urobilinogen NORMAL, Urine Leukocyte Esterase 3+H, Urine RBC (Auto) NEGATIVE, Urine RBC NONE, Urine WBC 10-25H, Urine Squamous Epithelial Cells 0-2, Urine Crystals NONE, Urine Bacteria FEWH, Urine Casts NONE, Urine Mucus NEGATIVE, Urine Culture Indicated YES 12/17/16 21:26: Troponin I 0.33*H 12/18/16 04:02: Sodium Level 144, Potassium Level 4.2, Chloride Level 98, Carbon Dioxide Level 37H, Anion Gap 9, Blood Urea Nitrogen 18, Creatinine 1.17, Estimat Glomerular Filtration Rate 44, BUN/Creatinine Ratio 15, Glucose Level 101, Calcium Level 8.7, Troponin I < 0.30 Microbiology 12/17/16 Urine Culture - Preliminary, Resulted Probable Enterococcus Species ECG Impression ECG Initial ECG Impression: Atrial Fibrillation w/RVR A/P-Cardiology Assessment/Admission Diagnosis non-STEMI, Dementia, Acute diastolic congestive heart failure, Atrial fibrillation JESSIE Pneumonia Plan shortness of breath is likely multifactorial due to atrial fibrillation, pneumonia and acute diastolic heart failure. BNP is elevated. We will give her oral dose of Lasix. Atrial fibrillation: Continue home medications which include metoprolol. Converted to sinus rhythm with iv Lopressor. Non-STEMI: Medical therapy with Plavix, BB and statin. JESSIE: mild worsening since last visit. will follow. Thank you for your consultation. Please call me if you have any questions. Javier Dutta MD, FACP, FACC, FSCAI, FHRS, CCDS Interventional Cardiology Cardiac Electrophysiology Vascular Medicine and Endovascular Interventions Clinical Quality Measures DVT/VTE Risk/Contraindication: Risk Factor Score Per Nursin RFS Level Per Nursing on Admit: 4+=Very High Carlin DUTTA MD Dec 18, 2016 12:40 pm
[2016-12-18] MEDS ORDERED: NON-FORMULARY MEDICATION 1 EA EA (Ketorolac Tromethamine 1 DROP) OU SCH (13:00)
[2016-12-18] MEDS: LACTOBACILLUS Acidoph/Bulgar (LACTINEX/FLORANEX) TAB PO SCH (13:40)
[2016-12-18] MEDS: PANTOPRAZOLE 40 MG (PROTONIX) TAB PO SCH (13:40)
[2016-12-18] MEDS: SIMETHICONE 80 MG (MYLICON) CHEW PO SCH ×2 (13:40→21:06)
[2016-12-18] MEDS: MULTIVIT W/MINERALS TAB (THERAGRAN M) PO SCH (13:40)
[2016-12-18] MEDS: PREGABALIN 100 MG (LYRICA) CAPSULE PO SCH ×2 (13:40→21:59)
[2016-12-18] MEDS: LORazepam 1 MG (ATIVAN) TAB PO SCH ×2 (13:40→21:59)
[2016-12-18] MEDS: CLOPIDOGREL 75 MG (PLAVIX) TABLET PO SCH (13:41)
[2016-12-18] MEDS: FUROSEMIDE 40 MG (LASIX) TAB PO SCH (13:41)
[2016-12-18] MEDS: KCL 20 MEQ TAB (K-DUR) PO SCH ×2 (13:41→21:03)
[2016-12-18] MEDS: VITAMIN D3 1,000 UNITS (CHOLECALCIFEROL) TABLET PO SCH (13:41)
[2016-12-18] MEDS: SUCRALFATE 1 GM (CARAFATE) TAB PO SCH ×2 (13:41→21:03)
[2016-12-18] MEDS ORDERED: ENOXAPARIN 80 MG/0.8 ML (LOVENOX) SYR SC SCH (15:00)
[2016-12-18 16:08] VITALS: BP 125/76
[2016-12-18 20:08] VITALS: BP 141/81
[2016-12-18] MEDS ORDERED: VANCOMYCIN INJECTION 1,000 MG in NS (IVPB) 250 ML IV SCH (20:30)
[2016-12-18] MEDS ORDERED: VANCOMYCIN 1000 MG/VIAL ONE (20:54)
[2016-12-18] MEDS ORDERED: NS (IVPB) 250 ML ONE (20:54)
[2016-12-18] MEDS ORDERED: DONEPEZIL 10 MG (ARICEPT) TAB PO SCH (21:00)
[2016-12-18] MEDS ORDERED: SIMvastatin 10 MG (ZOCOR) TAB PO SCH (21:00)
[2016-12-18] MEDS ORDERED: AMITRIPTYLINE 50 MG (ELAVIL) TAB PO SCH (21:00)
[2016-12-18] MEDS ORDERED: MELATONIN 3 MG TABLET PO SCH (21:00)
[2016-12-18] MEDS: morphine ER 30 MG (MS CONTIN) TAB PO SCH (21:59)
[2016-12-18 23:47] VITALS: BP 155/75
[2016-12-19 04:12] VITALS: BP 165/66
[2016-12-19 05:22] LABS: BASOPHILS % (AUTO) 0 % (0-10); EOSINOPHILS # (AUTO) 0.1 10^3/uL (0.0-0.3); EOSINOPHILS % (AUTO) 2 % (0-10); LYMPHOCYTES # (AUTO) 1.1 X 10^3 (1.0-4.0); LYMPHOCYTES % (AUTO) 19 % (12-44); MEAN CORPUSCULAR HEMOGLOBIN 27 PG (25-34); MEAN CORPUSCULAR HGB CONC 31 G/DL (32-36); MEAN CORPUSCULAR VOLUME 87 FL (80-99); MEAN PLATELET VOLUME 11.8 FL (7.4-10.4); MONOCYTES # (AUTO) 0.4 X 10^3 (0.0-1.0); MONOCYTES % (AUTO) 7 % (0-12); NEUTROPHILS # (AUTO) 4.3 X 10^3 (1.8-7.8); NEUTROPHILS % (AUTO) 73 % (42-75); PLATELET COUNT 132 10^3/uL (130-400); RED BLOOD COUNT 4.92 10^6/uL (4.35-5.85); RED CELL DISTRIBUTION WIDTH 14.5 % (10.0-14.5); WHITE BLOOD COUNT 5.9 10^3/uL (4.3-11.0)
[2016-12-19 05:46] LABS: CALCIUM 9.1 MG/DL (8.5-10.1); MAGNESIUM 1.6 MG/DL (1.8-2.4); PHOSPHORUS 2.7 MG/DL (2.3-4.7); POTASSIUM 4.2 MMOL/L (3.6-5.0)
[2016-12-19] MEDS: RT-ALBUTEROL/IPRATROPIUM 3 ML (DUONEB) VIAL INH SCH (07:47)
[2016-12-19 07:53] VITALS: BP 168/90
--- NOTE | 2016-12-19 08:38 | Diagnostic Imaging Report ---
INDICATION: Pneumonia 0529 hours Portable upright view of the chest is obtained. Since 12/17/2016, there is continued elevation of the right hemidiaphragm. There is pulmonary venous congestion with increased central density in both lungs. There is no significant midline shift. IMPRESSION: Central edema or pneumonitis similar to previous study. There is also stable right diaphragm elevation. No new abnormality or adverse change is seen. Dictated by: Dictated on workstation # [id number]
[2016-12-19] MEDS: KCL 20 MEQ TAB (K-DUR) PO SCH (09:15)
[2016-12-19] MEDS: SUCRALFATE 1 GM (CARAFATE) TAB PO SCH ×2 (09:15→13:45)
[2016-12-19] MEDS: LACTOBACILLUS Acidoph/Bulgar (LACTINEX/FLORANEX) TAB PO SCH (09:15)
[2016-12-19] MEDS: MULTIVIT W/MINERALS TAB (THERAGRAN M) PO SCH (09:16)
[2016-12-19] MEDS: morphine ER 30 MG (MS CONTIN) TAB PO SCH (09:16)
[2016-12-19] MEDS: LORazepam 1 MG (ATIVAN) TAB PO SCH (09:16)
[2016-12-19] MEDS: CLOPIDOGREL 75 MG (PLAVIX) TABLET PO SCH (09:16)
[2016-12-19] MEDS: SIMETHICONE 80 MG (MYLICON) CHEW PO SCH (09:17)
[2016-12-19] MEDS: FUROSEMIDE 40 MG (LASIX) TAB PO SCH (09:17)
[2016-12-19] MEDS: PREGABALIN 100 MG (LYRICA) CAPSULE PO SCH ×2 (09:17→13:49)
[2016-12-19] MEDS: meTOprolol TARTRATE 25 MG (LOPRESSOR) TABLET PO SCH (09:17)
[2016-12-19] MEDS: PANTOPRAZOLE 40 MG (PROTONIX) TAB PO SCH (09:17)
[2016-12-19] MEDS: VITAMIN D3 1,000 UNITS (CHOLECALCIFEROL) TABLET PO SCH (09:17)
[2016-12-19] MEDS ORDERED: VANCOMYCIN 1500 MG/NS 500 ML IVPB IV SCH ×2 (10:00)
--- NOTE | 2016-12-19 10:04 | Cardiology Progress Note ---
Cardiology SOAP Progress Note Subjective: No cardiac complaints. She wants to go home. Objective: I&O/Vital Signs Vital Sign - Last 12Hours 12/18/16 12/19/16 12/19/16 12/19/16 23:47 00:00 01:00 04:00 Temp 97.3 Pulse 57 61 Resp 14 B/P (MAP) 155/75 Pulse Ox 98 O2 Delivery Nasal Cannula Nasal Cannula Nasal Cannula O2 Flow Rate 4.00 4.00 5.00 12/19/16 12/19/16 12/19/16 12/19/16 04:12 07:00 07:47 07:50 Temp 97.1 Pulse 59 70 Resp 14 B/P (MAP) 165/66 Pulse Ox 96 95 O2 Delivery Nasal Cannula Nasal Cannula Nasal Cannula O2 Flow Rate 5.00 4.50 5.00 12/19/16 12/19/16 07:50 07:53 Temp 97.5 Pulse 61 Resp 18 B/P (MAP) 168/90 Pulse Ox 98 O2 Delivery Nasal Cannula Nasal Cannula O2 Flow Rate 5.00 5.00 Intake and Output 12/18/16 23:59 Intake Total 1150 ml Output Total 800 ml Balance 350 ml Weight (Pounds): 212 Weight (Ounces): 0.0 Weight (Calculated Kilograms): [id number] Constitutional: No appears stated age, No AAO x 3, No apparent distress, No PERRL, No well-developed, No well-nourished, No other Respiratory: No accessory muscle use, No respiratory distress, No chest tender , No chest expansion is symmetric, No chest is bilaterally symmetric, No lungs clear to percussion, No lungs clear to auscultation, No crackles, No rhonchi, No rales, No stridor, No wheezing, No pleural rub, No other Cardiovascular: regular rate-rhythm, S1 and S2 Gastrointestional: No tender, No soft, No round, No distended, No pulsatile mass, No organomegaly, No guarding, No rebound, No tenderness, No hernia, No mass, No audible bowel sounds, No abnormal bowel sounds, No abdominal bruits, No spleenomegaly, No other Extremities: No normal range of motion, No non-tender, No normal inspection, No pedal edema, No calf tenderness, No normal capillary refill, No pelvis stable , No calf tenderness, No inflammation, No pedal edema, No slow capillary refill , No swelling, No other, No abrasion, No clubbing, No cyanosis, No ecchymosis, No laceration, No no lower extremity edema bilateral, No significant edema, No tenderness, No wound Neurologic/Psychiatric: alert, normal mood/affect Skin: No normal color, No warm/dry, No cyanosis, No cool, No diaphoresis, No damp, No ecchymosis, No jaundice, No mottled, No pallor, No rash, No tattoos/ piercings, No ulcerations, No rash on exposed areas, No ulcerations on exposed areas, No other Results/Procedures: Labs Laboratory Tests 12/19/16 05:10: White Blood Count 5.9, Red Blood Count 4.92, Hemoglobin 13.3, Hematocrit 43, Mean Corpuscular Volume 87, Mean Corpuscular Hemoglobin 27, Mean Corpuscular Hemoglobin Concent 31L, Red Cell Distribution Width 14.5, Platelet Count 132, Mean Platelet Volume 11.8H, Neutrophils (%) (Auto) 73, Lymphocytes (%) (Auto) 19 , Monocytes (%) (Auto) 7, Eosinophils (%) (Auto) 2, Basophils (%) (Auto) 0, Neutrophils # (Auto) 4.3, Lymphocytes # (Auto) 1.1, Monocytes # (Auto) 0.4, Eosinophils # (Auto) 0.1, Basophils # (Auto) 0.0, Sodium Level 145, Potassium Level 4.2, Chloride Level 101, Carbon Dioxide Level 33H, Anion Gap 11, Blood Urea Nitrogen 18, Creatinine 1.00, Estimat Glomerular Filtration Rate 52, BUN/ Creatinine Ratio 18, Glucose Level 104, Calcium Level 9.1, Phosphorus Level 2.7 , Magnesium Level 1.6L Microbiology 12/17/16 Urine Culture - Final, Complete Enterococcus Faecalis A/P: Assessment/Dx: non-STEMI, Dementia, Acute diastolic congestive heart failure, Atrial fibrillation JESSIE Pneumonia Plan: shortness of breath is likely multifactorial due to atrial fibrillation, pneumonia and acute diastolic heart failure. BNP is elevated. We will continue oral dose of Lasix. Not complaining of shortness of breath today. Paroxysmal Atrial fibrillation: On beta blockers. Stays in sinus rhythm. Non-STEMI: Medical therapy with Plavix, BB and statin. JESSIE: mild worsening since last visit. will follow. Dr. Erickson to take over cardiology care from tomorrow. Thank you for your consultation. Please call me if you have any questions. Javier Dutta MD, FACP, FACC, FSCAI, FHRS, CCDS Interventional Cardiology Cardiac Electrophysiology Vascular Medicine and Endovascular Interventions Carlin DUTTA MD Dec 19, 2016 10:04
[2016-12-19] MEDS ORDERED: MORP100S3 PO (11:41)
--- NOTE | 2016-12-19 12:02 | Progress Note-Hospitalist ---
Standard Progress Note Progress Notes/Assess & Plan Date Seen 12/19/16 Time Seen by Provider: 11:57 Diagnosis Assessment: Atrial fibrillation with rapid ventricular response Congestive heart failure Non-ST elevation OR with elevated troponin Pneumonia UTI Hyponatremia Chronic pain End-of-life status Assess & Plan/Chief Complaint The patient reports that she is comfortable today. She had previously stated that she never wanted to return to the hospital. Her daughters had informed us that they were in tune with that request. For whatever reason their mother had some sort of adverse an to the word hospice, however they wished to talk to our hospice/palliative care team to arrange the details so that she might not ever be returned here. This has been completed. She will be discharged back to [facility] under [place] [facility]. She is anxious to leave. Physical exam: She is alert. Lungs are clear to auscultation. CV shows an irregular rhythm consistent with atrial fibrillation. Abdomen is obese. 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 No pedal edema is noted on the left. Impression: Atrial fibrillation with recurrent rapid ventricular response Labs Laboratory Tests 12/17/16 14:45 12/18/16 04:02 12/19/16 05:10 Final Diagnosis 1.atrial fibrillation with recurrent rapid ventricular response. 2.congestive heart failure. 3.recurrent non-ST segment elevation OR NIXON SCOTT MD Dec 19, 2016 12:02
--- NOTE | 2016-12-19 12:06 | Discharge Instructions ---
Discharge Instructions Patient Instructions Patient Instructions Resume medications as listed on the discharge sequence 2.hospice status/[place] [facility] 3.DO NOT RESUSCITATE/do not hospitalize status Activity & Diet Discharge Diet: No Restrictions Activity as Tolerated: Yes Copy Copies To 1: PETRA CARUSO RODNEY K MD Dec 19, 2016 12:06
[2016-12-19 13:29] VITALS: BP 165/71
[2016-12-19 14:00] VITALS: BP 165/71
[2016-12-20] MEDS ORDERED: TROUGH ORDER-PHARMACY XX NR (09:00)
--- OUTSIDE RECORDS SUMMARY | 2016-12-21 10:49 | XMS REPORT | Continuity of Care Document ---
Author Author [facility] Organization [facility] Address Unknown Phone Unavailable Allergies Active Description Code Type Severity Reaction Onset Reported/Identified Relationship to Patient Clinical Status Yes latex [id number] Drug Allergy Mild N/A 11/12/2016 Yes cephalexin [id number] Drug Allergy Unknown N/A 11/12/2016 Yes codeine [id number] Drug Allergy Unknown N/A 11/12/2016 Yes Penicillins [id number] Drug Allergy Unknown N/A 11/12/2016 Yes povidone-iodine [id number] Drug Allergy Unknown N/A 11/12/2016 Yes Soap [id number] Drug Allergy Unknown N/A 11/12/2016 Medications Problems [...] Ot 553.3 DIAPHRAGMATIC HERNIA 09/18/2014 HERBERT CARUSO MEDICAL DERMATOLOGIST Ot V76.12 10/03/2014 HERBERT CARUSO MEDICAL DERMATOLOGIST Ot V76.12 10/23/2014 HERBERT CARUSO MEDICAL DERMATOLOGIST Ot V76.12 11/24/2014 DAVID CARUSOIA Radha MEDICAL DERMATOLOGIST Ot 569.89 11/24/2014 HERBERT CARUSO MEDICAL DERMATOLOGIST Ot 787.3 11/24/2014 HERBERT CARUSO MEDICAL DERMATOLOGIST Ot 789.00 03/03/2015 PETRA CARUSO DO Ot [...] ABDOMINAL PAIN, UNSPECIFIED SITE 11/12/2016 HERBERT CARUSO MEDICAL DERMATOLOGIST Ot 569.89 INTESTINAL DISORDERS NEC 11/12/2016 HERBERT CARUSO MEDICAL DERMATOLOGIST Ot 787.3 FLATUL/ERUCTAT/GAS PAIN 11/12/2016 HERBERT CARUSO MEDICAL DERMATOLOGIST Ot 789.00 ABDOMINAL PAIN, UNSPECIFIED SITE 11/12/2016 [...] 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 11/21/2016 JIOE HICKEY SONNY Ot G62.9 POLYNEUROPATHY, UNSPECIFIED 11/21/2016 JOIE HICKEY SONNY Ot I21.4 NON-ST ELEVATION (NSTEMI) MYOCARDIAL INF 11/21/2016 JOIE HICKEY SONNY Ot I50.31 ACUTE DIASTOLIC (CONGESTIVE) HEART FAILU 11/21/2016 JOIE HICKEY SONNY Ot J18.9 PNEUMONIA, UNSPECIFIED ORGANISM 11/21/2016 JOEI HICKEY SONNY Ot 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 11/21/2016 JOIE HICKEY SONNY Ot N17.9 ACUTE KIDNEY FAILURE, UNSPECIFIED 11/21/2016 JOIE HICKEY SONNY Ot N18.9 CHRONIC KIDNEY DISEASE, UNSPECIFIED 11/21/2016 JOIE HICKEY SONNY Ot N39.0 URINARY TRACT INFECTION, SITE NOT SPECIF 11/21/2016 JOIE HICKEY SONNY Ot R09.02 HYPOXEMIA 11/21/2016 JOIE HICKEY SONNY Ot R32 UNSPECIFIED URINARY INCONTINENCE 11/21/2016 JOIE HICKEY SONNY Ot Z66 DO NOT RESUSCITATE 11/21/2016 JOIE HICKEY SONNY Ot 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 11/21/2016 JOIE HICKEY SONNY Ot Z87.891 PERSONAL HISTORY OF NICOTINE DEPENDENCE 11/21/2016 JOIE HICKEY SONNY Ot 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 12/07/2016 JOIE HICKEY SONNY Ot E66.9 OBESITY, UNSPECIFIED 12/07/2016 JOIE HICKEY SONNY Ot E86.0 DEHYDRATION 12/07/2016 JOIE HICKEY SONNY Ot E87.8 OTH DISORDERS OF ELECTROLYTE AND FLUID B 12/07/2016 JOIE HICKEY SONNY Ot F32.9 MAJOR DEPRESSIVE DISORDER, SINGLE EPISOD 12/07/2016 JOIE HICKEY SONNY Ot F41.9 ANXIETY DISORDER, UNSPECIFIED 12/07/2016 JOIE HICKEY SONNY Ot G47.9 SLEEP DISORDER, UNSPECIFIED 12/07/2016 JOIE HICKEY SONNY Ot G62.9 POLYNEUROPATHY, UNSPECIFIED 12/07/2016 JOIE HICKEY SONNY Ot I21.4 NON-ST ELEVATION (NSTEMI) MYOCARDIAL INF 12/07/2016 JOIE HICKEY SONNY Ot I25.10 ATHSCL HEART DISEASE OF [place] CORONARY 12/07/2016 JOIE HICKEY SONNY Ot I48.91 UNSPECIFIED ATRIAL FIBRILLATION 12/07/2016 SIMONE SALTER DOI Ot I48.92 UNSPECIFIED ATRIAL FLUTTER 12/07/2016 SIMONE SALTER DOI Ot I50.9 HEART FAILURE, UNSPECIFIED 12/07/2016 SIMONE SALTER DOI Ot K21.9 GASTRO-ESOPHAGEAL REFLUX DISEASE WITHOUT 12/07/2016 JOIE HICKEY SONNY Ot 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 12/07/2016 JOIE HICKEY SONNY Ot K59.09 OTHER CONSTIPATION 12/07/2016 JOIE HICKEY SONNY Ot N18.9 CHRONIC KIDNEY DISEASE, UNSPECIFIED 12/07/2016 SIMONE SALTER DOI Ot R09.02 HYPOXEMIA 12/07/2016 SIMONE SALTER DOI Ot R32 UNSPECIFIED URINARY INCONTINENCE 12/07/2016 SIMONE SALTER DOI Ot Z66 DO NOT RESUSCITATE 12/07/2016 SIMONE SALTER DOI Ot 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 12/07/2016 SIMONE SALTER DOI Ot Z87.19 PERSONAL HISTORY OF OTHER DISEASES OF [place] 12/07/2016 JOIE HICKEY SONNY Ot 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 12/07/2016 JOIE HICKEY SONNY Ot E66.9 OBESITY, UNSPECIFIED 12/07/2016 JOIE HICKEY SONNY Ot E86.0 DEHYDRATION 12/07/2016 JOIE HICKEY SONNY Ot E87.8 OTH DISORDERS OF ELECTROLYTE AND FLUID B 12/07/2016 SONNY SALTER DO Ot F32.9 MAJOR DEPRESSIVE DISORDER, SINGLE EPISOD 12/07/2016 SIMONE SALTER DOI Ot F41.9 ANXIETY DISORDER, UNSPECIFIED 12/07/2016 JOIE HICKEY SONNY Ot G47.9 SLEEP DISORDER, UNSPECIFIED 12/07/2016 SIMONE SALTER DOI Ot G62.9 POLYNEUROPATHY, UNSPECIFIED 12/07/2016 SIMONE SALTER DOI Ot I21.4 NON-ST ELEVATION (NSTEMI) MYOCARDIAL INF 12/07/2016 SIMONE SALTER DOI Ot I25.10 ATHSCL HEART DISEASE OF [place] CORONARY 12/07/2016 SIMONE SALTER DOI Ot I48.91 UNSPECIFIED ATRIAL FIBRILLATION 12/07/2016 SONNY SALTER DO Ot I48.92 UNSPECIFIED ATRIAL FLUTTER 12/07/2016 SONNY SALTER DO Ot J98.11 ATELECTASIS 12/07/2016 SONNY SALTER DO Ot K21.9 GASTRO-ESOPHAGEAL REFLUX DISEASE WITHOUT 12/07/2016 SONNY SALTER DO Ot 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 12/07/2016 SONNY SALTER DO Ot K59.09 OTHER CONSTIPATION 12/07/2016 SONNY SALTER DO Ot N18.9 CHRONIC KIDNEY DISEASE, UNSPECIFIED 12/07/2016 SONNY SALTER DO Ot R09.02 HYPOXEMIA 12/07/2016 SONNY SALTER DO Ot R32 UNSPECIFIED URINARY INCONTINENCE 12/07/2016 SONNY SALTER DO Ot Z66 DO NOT RESUSCITATE 12/07/2016 SONNY SALTER DO Ot Z68.36 BODY MASS INDEX (BMI) 36.0-36.9, ADULT 12/07/2016 SONNY SALTER DO Ot 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 12/07/2016 SONNY SALTER DO Ot Z87.19 PERSONAL HISTORY OF OTHER DISEASES OF [place] 12/07/2016 SONNY SALTER DO Ot Z89.611 ACQUIRED ABSENCE [...] culture - 11/12/16 14:48 Bacterial urine culture [id number] NRG COLONY COUNT 10,000/ML - 100,000/ML NRG [...] measurement by glucometer (mass/volume) 111 mg/dL 70-110 Blood CBC with ordered manual differential panel - 12/17/16 14:45 Blood leukocytes automated count (number/volume) 10.8 10*3/ uL 4.3-11.0 Blood erythrocytes automated count (number/volume) 5.43 10*6 /uL 4.35-5.85 Venous blood hemoglobin measurement (mass/volume) 14.8 g/dL 11.5-16.0 Blood hematocrit (volume fraction) 49 % 35-52 Automated erythrocyte mean corpuscular volume 90 [foz_us] 80-99 Automated erythrocyte mean corpuscular hemoglobin (mass per erythrocyte) 27 pg 25-34 Automated erythrocyte mean corpuscular hemoglobin concentration measurement ( mass/volume) 31 g/dL 32-36 Automated erythrocyte distribution width ratio 15.1 % 10.0-14.5 Automated blood platelet count (count/volume) 140 10*3/uL 130-400 Automated blood platelet mean volume measurement 11.6 [foz_ us] 7.4-10.4 Automated blood neutrophils/100 leukocytes 82 % 42-75 Automated blood lymphocytes/100 leukocytes 12 % 12-44 Blood monocytes/100 leukocytes 5 % 0-12 Automated blood eosinophils/100 leukocytes 1 % 0-10 Automated blood basophils/100 leukocytes 0 % 0-10 Blood neutrophils automated count (number/volume) 8.8 10*3 1.8-7.8 Blood lymphocytes automated count (number/volume) 1.3 10*3 1.0-4.0 Blood monocytes automated count (number/volume) 0.6 10*3 0.0-1.0 Automated eosinophil count 0.1 10*3/uL 0.0-0.3 Automated blood basophil count (count/volume) 0.0 10*3/uL 0.0-0.1 Manual blood segmented neutrophils/100 leukocytes 71 % NRG Blood band neutrophils/100 leukocytes 8 % NRG Manual blood lymphocytes/100 leukocytes 11 % NR Blood erythrocyte morphology finding identification [facility] Comprehensive metabolic panel - 12/17/16 14:45 Serum or plasma sodium measurement (moles/volume) 146 mmol/ L 135-145 Serum or plasma potassium measurement (moles/volume) 4.3 mmol/L 3.6-5.0 Serum or plasma chloride measurement (moles/volume) 95 mmol/ L 98-107 Carbon dioxide 36 mmol/L 21-32 Serum or plasma anion gap determination (moles/volume) 15 mmol/L 5-14 Serum or plasma urea nitrogen measurement (mass/volume) 17 mg/dL 7-18 Serum or plasma creatinine measurement (mass/volume) 1.44 mg /dL 0.60-1.30 Serum or plasma urea nitrogen/creatinine mass ratio 12 NRG Serum or plasma creatinine measurement with calculation of estimated glomerular filtration rate 34 NRG Serum or plasma glucose measurement (mass/volume) 117 mg/dL 70-105 Serum or plasma calcium measurement (mass/volume) 9.2 mg/dL 8.5-10.1 Serum or plasma total bilirubin measurement (mass/volume) 1.1 mg/dL 0.1-1.0 Serum or plasma alkaline phosphatase measurement (enzymatic activity/volume) 93 U/L 40-136 Serum or plasma aspartate aminotransferase measurement (enzymatic activity/ volume) 23 U/L 5-34 Serum or plasma alanine aminotransferase measurement (enzymatic activity/volume ) 14 U/L 0-55 Serum or plasma protein measurement (mass/volume) 6.8 g/dL 6.4-8.2 Serum or plasma albumin measurement (mass/volume) 3.6 g/dL 3.2-4.5 Serum or plasma troponin i.cardiac measurement (mass/volume) - 12/17/16 14:45 Serum or plasma troponin i.cardiac measurement (mass/volume) 0.48 ng/mL <0.30 Serum or plasma lithium measurement (moles/volume) - 12/17/16 14:45 BNP level 901.4 pg/mL <100.0 Complete urinalysis with reflex to culture - 12/17/16 15:15 Urine color determination YELLOW NRG Urine clarity determination SLIGHTLY CLOUDY NRG Urine pH measurement by test strip 5 5- 9 Specific gravity of urine by test strip 1.015 1.016-1.022 Urine protein assay by test strip, semi-quantitative NEGATIVE NEGATIVE Urine glucose detection by automated test strip NEGATIVE NEGATIVE Erythrocytes detection in urine sediment by light microscopy NEGATIVE NEGATIVE Urine ketones detection by automated test strip NEGATIVE NEGATIVE Urine nitrite detection by test strip NEGATIVE NEGATIVE Urine total bilirubin detection by test strip NEGATIVE NEGATIVE Urine urobilinogen measurement by automated test strip (mass/volume) NORMAL NORMAL Urine leukocyte esterase detection by dipstick 3+ NEGATIVE Automated urine sediment erythrocyte count by microscopy (number/high power field) NONE NRG Automated urine sediment leukocyte count by microscopy (number/high power field ) [HPF] NRG Bacteria detection in urine sediment by light microscopy FEW NRG Squamous epithelial cells detection in urine sediment by light microscopy 0-2 NRG Crystals detection in urine sediment by light microscopy NONE NRG Casts detection in urine sediment by light microscopy NONE NRG Mucus detection in urine sediment by light microscopy NEGATIVE NRG Complete urinalysis with reflex to culture YES NRG Bacterial urine culture - 12/17/16 15:15 Bacterial urine culture [id number] NRG COLONY COUNT >100,000/ML NRG Serum or plasma troponin i.cardiac measurement (mass/volume) - 12/17/16 21:26 Serum or plasma troponin i.cardiac measurement (mass/volume) 0.33 ng/mL <0.30 Whole blood basic metabolic panel - 12/18/16 04:02 Serum or plasma sodium measurement (moles/volume) 144 mmol/ L 135-145 Serum or plasma potassium measurement (moles/volume) 4.2 mmol/L 3.6-5.0 Serum or plasma chloride measurement (moles/volume) 98 mmol/ L 98-107 Carbon dioxide 37 mmol/L 21-32 Serum or plasma anion gap determination (moles/volume) 9 mmol/L 5-14 Serum or plasma urea nitrogen measurement (mass/volume) 18 mg/dL 7-18 Serum or plasma creatinine measurement (mass/volume) 1.17 mg /dL 0.60-1.30 Serum or plasma urea nitrogen/creatinine mass ratio 15 NRG Serum or plasma creatinine measurement with calculation of estimated glomerular filtration rate 44 NRG Serum or plasma glucose measurement (mass/volume) 101 mg/dL 70-105 Serum or plasma calcium measurement (mass/volume) 8.7 mg/dL 8.5-10.1 Serum or plasma troponin i.cardiac measurement (mass/volume) - 12/18/16 04:02 Serum or plasma troponin i.cardiac measurement (mass/volume) < ng/mL <0.30 Encounters ACCT No. Visit Date/Time Discharge Status Pt. Type Provider Facility Loc./Unit Complaint [id number] 12/04/2016 15:41:00 2016 15:16:00 DIS Outpatient SONNY SALTER DO [facility] 4TH A-FLUTTER WITH RVR [id number] 11/27/2016 00:09:00 2016 03:57:00 DIS Emergency IRA BELTRAN, CAITLIN Gilbert [facility] ER COOL,CLAMMY [id number] 11/12/2016 13:03:00 2016 14:48:00 DIS Inpatient SONNY SALTER DO [facility] 4TH HYPOXIA,DECREASED LOC [id number] 02/11/2015 08:14:00 2014 23:59:59 CLS Outpatient PETRA CARUSO DO [facility] RAD ABNORMAL MAMMO [id number] 09/11/2014 10:06:00 2014 23:59:59 CLS Outpatient HERBERT CARUSO [facility] RAD SCREENING [id number] 12/16/2013 08:32:00 2013 11:15:00 DIS Outpatient AMBREEN MARIA MD [facility] SDC NAUSEA [id number] 12/11/2013 07:24:00 2013 23:59:59 CLS Outpatient AMBREEN MARIA MD [facility] PREOP NAUSEA [id number] 11/28/2013 08:43:00 2013 23:59:59 CLS Outpatient PETRA CARUSO DO [facility] RAD FRACTURES [id number] 11/15/2013 10:05:00 2013 23:59:59 CLS Outpatient PETRA CARUSO DO [facility] RAD NAUSEA,WEIGHT LOSS [id number] 08/29/2013 14:03:00 2013 23:59:59 CLS Outpatient HERBERT CARUSO [facility] RAD ABD PAIN [id number] 11/12/2012 16:25:00 2012 23:59:59 CLS Outpatient [id number] 12/17/2016 15:48:00 ACT Inpatient SONNY SALTER DO [facility] ICU NSTEMI,CHF,MENTIA,UTI [id number] 11/12/2016 16:59:00 Document Registration [id number] 06/30/2015 09:24:00 ACT Outpatient PETRA CARUSO DO [facility] RAD RADICULOPATHY [id number] 01/10/2014 09:01:00 Document Registration [id number] 09/08/2012 09:15:00 Document Registration [id number] 06/15/2012 14:11:00 Document Registration [id number] 05/04/2011 12:08:00 Document Registration [id number] 12/19/2010 10:30:00 Document Registration
== END 2016-12-19 14:00 | disposition hospice, inpatient (51) | DRG 280 ==
LOC: EDUNIT# 14:42 → ER 14:44 → ICU 15:48
PROVIDERS: ADMIT Internal Medicine; ATTEND Internal Medicine
DX: I48.0 Paroxysmal atrial fibrillation (principal); I22.2 Subsequent non-ST elevation (NSTEMI) myocardial infarction; I11.0 Hypertensive heart disease with heart failure; I50.31 Acute diastolic (congestive) heart failure; J18.9 Pneumonia, unspecified organism; N17.9 Acute kidney failure, unspecified; N39.0 Urinary tract infection, site not specified; E87.1 Hypo-osmolality and hyponatremia; Z66 Do not resuscitate; I25.10 Atherosclerotic heart disease of native coronary artery without angina pectoris; K21.9 Gastro-esophageal reflux disease without esophagitis; G62.9 Polyneuropathy, unspecified; F41.9 Anxiety disorder, unspecified; F32.9 Major depressive disorder, single episode, unspecified; G89.29 Other chronic pain
CPT/HCPCS: 36415; 71010; 80048; 80053; 81000; 83735; 83880; 84100; 84484; 85007; 85025; 85027; 87077; 87088; 87186; 93005; 94640; 96372; 96374; 96375

== ENCOUNTER → 2017-11-19 | Outpatient (CLI) | payer MEDICARE, OTHER, MEDICAID ==
[~2017-11-19] MED LIST changes: +MORP100S3 PO
[2017-11-19 11:42] LABS: BILIRUBIN,URINE NEGATIVE (NEGATIVE); CLARITY,URINE SLIGHTLY CLOUDY; COLOR,URINE AMBER; GLUCOSE, URINE (UA) NEGATIVE (NEGATIVE); KETONES,URINE 2+ (NEGATIVE); LEUKOCYTE ESTERASE ,URINE 3+ (NEGATIVE); NITRITE,URINE NEGATIVE (NEGATIVE); PH,URINE 5 (5-9); PROTEIN,URINE 2+ (NEGATIVE); UROBILINOGEN,URINE 1 MG/DL (NORMAL)
[2017-11-19 11:49] LABS: BACTERIA,URINE MODERATE /HPF; SQUAMOUS EPITHELIAL CELL,UR 25-50 /HPF; WBC,URINE 50-100 /HPF
== END ==
LOC: LABNPT 11:36
PROVIDERS: ATTEND Internal Medicine
DX: R82.90 Unspecified abnormal findings in urine (principal)
CPT/HCPCS: 81000; 87077; 87088; 87186